=== PATIENT | male | born 1950 | race Caucasian/White ===

== ENCOUNTER 2021-06-11 09:30 | Outpatient (RCR) | payer MEDICARE, SELFPAY ==
[2021-03-17 12:31] VITALS: BP 142/62; PULSE 61; RESP 16; TEMP 36.4; O2SAT 99
[2021-03-17 12:33] VITALS: PULSE 61
== END 2021-06-11 15:23 | disposition home or self-care (01) ==
LOC: ANHCPREHAB 09:30
PROVIDERS: PCP Internal Medicine; Visit Provider Internal Medicine Cardiovascular Disease
DX: Z95.1 Presence of aortocoronary bypass graft (principal)
CPT/HCPCS: 93798

== ENCOUNTER 2022-07-07 08:35 | Outpatient (CLI) | payer MEDICARE, SELFPAY ==
--- NOTE | ~2022-07-07 | MR_ITS ---
EXAMINATION: MR lumbar spine wo con DATE: 07/07/2022 09:07 INDICATION: Spinal stenosis of lumbosacral region. TECHNIQUE: Magnetic resonance imaging (MRI) of the lumbar spine was performed without intravenous con trast. Sequences included sagittal T2-weighted FSE, sagittal T2-weighted FS FSE, sagittal T1-weighted FSE, and axial T2-weighted FSE. COMPARISON: Lumbar spine MRI 08/17/2018 FINDINGS: There is 3 degrees dextrocurvature of thoracolumbar spine. There is 4 mm retrolisthesis of L2 on L3 and 4 mm anterolisthesis of L4 on L5. Vertebral body heights are normal. There is mildly dec reased disc height at L2-L3, moderately decreased disc height at L4-L5, and severely decreased disc h eight at L5-S1 with endplate remodeling. The distal spinal cord signal intensity is normal. The conus medullaris is at T12-L1. The following disc levels are specifically discussed: L1-L2: There is a central protrusion. There is mild right and moderate left facet joint osteoarthriti s. There is mild left neural foraminal stenosis. There is mild central canal stenosis. L2-L3: The disc is bulging with superimposed left subarticular zone extrusion. There is mild right an d moderate left facet joint osteoarthritis. There is moderate bilateral neural foraminal stenosis. Th ere is moderate central canal stenosis. There is severe stenosis of left lateral recess. L3-L4: The disc is bulging. There is severe bilateral facet joint osteoarthritis. There is hypertroph y of the ligamentum flavum. There is moderate bilateral neural foraminal stenosis. There is severe ce ntral canal stenosis. L4-L5: The disc is bulging and has an annular fissure. There is severe bilateral facet joint osteoart hritis. There is moderate bilateral neural foraminal stenosis. There is mild central canal stenosis. L5-S1: The disc is bulging and has an annular fissure. There is severe bilateral facet joint osteoart hritis. There is moderate bilateral neural foraminal stenosis. There is mild central canal stenosis. IMPRESSION: 1. Severe lumbar spondylosis with interval worsening at L2-L3. Reviewed, dictated and finalized at location A.
== END 2022-07-07 08:36 | disposition home or self-care (01) ==
LOC: ANHIMG 08:36
PROVIDERS: PCP Internal Medicine; Visit Provider Internal Medicine
DX: M48.07 Spinal stenosis, lumbosacral region (principal); M47.896 Other spondylosis, lumbar region
CPT/HCPCS: 72148

== ENCOUNTER 2025-04-06 09:35 | Inpatient (IN) | payer MEDICARE, SELFPAY ==
[2025-04-06] VITALS (27 sets, daily range): BP systolic 116–142; BP diastolic 49–104; PULSE 70–99; RESP 20–32; TEMP 36.4–38.3; O2SAT 86–100; BMI 31.8
--- NOTE | ~2025-04-06 | XR_ITS ---
XR chest 2V 04/06/2025 10:20 Indication: Hemoptysis Procedure: 2 view chest Comparison: 03/04/2007 Findings: Large left upper lobe mass, consistent with bronchogenic carcinoma until proven otherwise. Cardiomegaly. Status post median sternotomy for CABG. Right lung clear. Impression: 1: Large left upper lobe mass, consistent with bronchogenic carcinoma until proven otherwise. Recomme nd correlation with CT chest. Reviewed, dictated and finalized at location B. Impression: 1: Large left upper lobe mass, consistent with bronchogenic carcinoma until pro sidney otherwise. Recommend correlation with CT chest.
--- NOTE | ~2025-04-06 | CT_ITS ---
EXAMINATION: CTA chest PE protocol DATE: 04/06/2025 11:13 INDICATION: Hemoptysis, cough and fever TECHNIQUE: Computed tomography (CT) pulmonary angiogram of the chest was performed with 100 mL Omnipa que-350 intravenous contrast. Additional 3D reconstructions utilizing coronal maximum intensity proje ction (MIP) were performed. Automated exposure control and iterative reconstruction technique were em ployed. The dose-length product was 464.63 mGy-cm. COMPARISON: Chest CT dated 07/23/2016 FINDINGS: No pulmonary embolism. Patchy consolidation and surrounding groundglass opacity in the dependent left upper lobe extending inferiorly into the lingula consistent with pneumonia. There is mild dependent atelectasis in bilateral lower lobes. Tiny left pleural effusion. Cardiomegaly. Atherosclerotic coron davian artery calcifications. Median sternotomy wires and changes of prior coronary artery bypass grafti ng. Three lead pacemaker seen with lead tips terminating at the right atrial appendage, apex of the r ight ventricle and in a coronary vein overlying the lateral left ventricle having traversed the coron davian sinus. No pericardial effusion. Thoracic aorta is normal in caliber with no dissection. Calcified right hilar, mediastinal and left axillary lymph nodes consistent with old granulomatous disease. Th ere are few prominent but still normal-sized prevascular lymph nodes consistent with likely reactive mediastinal lymphadenopathy. Mild left gynecomastia. Chronic 1 cm low-attenuation hepatic cyst versus hemangioma which can be seen on CT dated 07/02/18. 2.4 cm right renal cyst. Severe lower cervical spon dylosis. Mild to moderate thoracic spondylosis. IMPRESSION: 1. No pulmonary embolism. 2. Consolidation the left upper lobe and lingula consistent with pneumonia. 3. Cardiomegaly. 4. Mild likely reactive mediastinal lymphadenopathy. Reviewed, dictated and finalized at location A.
--- OUTSIDE RECORDS SUMMARY | 2025-04-06 09:39 | XMS_ITS | Encounter Summary ---
Author Organization [facility] Address [address] [place] [address] Care Team Providers Care Bee Raiser Name Role Phone Asim Mahmood DO Primary Care Provider [phone] Reason for Visit * Reason Onset Date Comments ECHO RESULT 08/15/2024 Encounter Details Date Type Department Care Team (Late st Contact Info) Description 08/15/2024 Telephone [facility] At [address] [place] [id number] Norman Stewart MD [address] [place] [address] [address] [place] [address] ECHO RESULT Social History Tobacco Use Types Packs/Day Years Used Date Smoking Tobacco: Never Smokeless Tobacco: Never Alcohol Use Standard Drinks/Week Comments Yes 18 (1 standard drink = 0.6 oz pu re alcohol) Sex and Gender Information Value Date Recorded Sex Assigned at Not on file Legal Sex Male 8:57 AM CDT Gender Identity Not on file Sexual Orientation Not on file documented as of this encounter Miscellaneous Notes * Telephone Encounter - Haley Sweeney - 08/15/2024 12:36 PM CDT Patient results scanned into chart documented in this encounter Plan of Treatment Upcoming Encounters Date Type Department Care Team (Late st Contact Info) Description 05/31/2025 2:15 PM CDT Procedure visit [facility] AT [address] [place] [address] 03/07/2026 11:00 AM CDT Office Visit [facility] [address] [place] [address] Norman Stewart MD [address] [place] [address] [address] [place] [address] documented as of this encounter Visit Diagnoses Not on filedocumented in this encounter Care Teams Bee Raiser Relationship Specialty Start Date End Date Asim Mahmood DO [address] [facility] [address] [place] [address] PCP - General Internal Medicine 02/29/24 documented as of this encounter
--- OUTSIDE RECORDS SUMMARY | 2025-04-06 09:39 | XMS_ITS ---
Author Organization [facility] [place] [address] Address [address] [place] [address] Care Team Providers Care Stereo Equipment Salesperson Name Role Phone Chon Goode Primary Care Provider Active Problems Problem Noted Date Diagnosed Date Cardiac resynchronization th erapy pacemaker (AVIATION NEUROPSYCHOLOGIST-P) in place 05/10/2024 HFrEF (heart failure with reduced ejection fract ion) 01/20/2024 Atrial fibrillation 12/08/2023 Cardiomyopathy 04/22/2023 Medication side effects 10/02/2021 Aftercare following surgery of the circulatory s ystem, NEC 02/25/2021 Abnormal cardiovascular stress test 01/03/2021 Overview (01/03/2021): Added automatically from request for surgery [id number] LBBB (left bundle branch block) 12/31/2020 Premature atrial contractions 12/22/2019 Statin myopathy 12/22/2019 Mixed diabetic hyperlipidemi a associated with type 2 diabetes mellitus (CMS/HCC) 12/22/2019 Cervical myelopathy 11/02/2018 Spinal stenosis of lumbar re gion without neurogenic claudication 11/02/2018 Idiopathic peripheral neuropathy 07/29/2018 Lumbar spondylosis 07/29/2018 Coronary artery disease invo lving [place] coronary artery of [place] heart without angina pectoris 02/16/2018 Hypertension associated with diabetes 02/16/2018 MORENITA on CPAP 02/16/2018 Hx of CABG 02/16/2018 History of tobacco abuse 02/16/2018 Scar 08/07/2013 Subcutaneous nodule 08/07/2013 Skin neoplasm 06/30/2013 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 12/30/19 13 Current Treatment and Therapy Plans No current plan information found. Past Treatment and Therapy Plans No past plan information found. Lifetime Dose Tracking * Chemical Lifetime Dose Automatic Entry Manual Entr y Air kerma at the reference point (Ka,r) 1,684.53 mGy 0 mGy 1,684.53 mGy Resolved Problems Problem Noted Date Diagnosed Date Resolved Date Coronary artery disease invo lving autologous vein coronary bypass graft with angina pectoris ([facility]) 01/14/2021 10/02/2021 Overview (01/14/2021): Added automatically from request for surgery [id number] Angina pectoris, unstable 01/03/2021 Overview (01/03/2021): Added automatically from request for surgery [id number] Dyslipidemia 02/16/2018 10/02/2021 Statin intolerance 02/16/2018 9 Abnormal blood chemistry level 05/28/2011 04/22/2023 Hypercholesterolemia 12/18/2008 021
--- OUTSIDE RECORDS SUMMARY | 2025-04-06 09:39 | XMS_ITS | Clinical Summary ---
Author Organization [facility] [place] [address] Address [address] [place] [address] Care Team Providers Care Freight Car Builder Name Role Phone Chon Goode Primary Care Provider Allergies Active Allergy Reactions Criticality Noted Date Comments Amlodipine Swelling Medium 02/16/2018 Atorvastatin Other (See comments) High 02/16/2018 Chest Pain Carvedilol Swelling,Other (See comments) Medium 02/16/2018 Back pain Hydrochlorothiazide Chest tightness Medium 02/16/2018 Thinks may have been due to concomitant statin therapy. Pravastatin Swelling,Other (See comments) Medium 02/16/2018 Back pain Rosuvastatin Other (See comments) High Bleeding Spironolactone Swelling,Other (See comments) Medium 02/16/2018 Back pain Qsklkxl-Jxo-Nnz Reductase Inhibitors Other (See comments) Low 02/16/2018 Myositis/severe myalgias Ezetimibe Cough Low 02/16/2018 Medications aspirin 81 mg tablet Take 1 tablet (81 mg total) by mouth daily Active multivitamin tabletIndicati ons:Vitamin Deficiency Prevention Take 1 tablet by mouth daily Active cholecalcifero l (VITAMIN D-3) 5,000 unit capsule Take 1 capsule (5,000 Units total) by mouth daily Active glucosamine/ch ondr alvarez A sod (GLUCOSAMINE-C HONDROITIN) 1,500-1,200 mg/30 mL liquid Take 1 tablet by mouth 2 (two) times a day. Active vit A,C and F-ghrytm-likvm als (OCCUVITE with LUTEIN) 1,000 unit-200 mg-60 unit-2 mg tabletIndicati ons:Vitamin Deficiency Prevention Take 1 tablet by mouth daily Active ginkgo biloba leaf extract 120 mg capsule Take 120 mg by mouth daily 0 Active magnesium oxide (MAG-OX) 250 mg (150.8 mg elemental) tabletIndicati ons:hypomagnes emia Take 1 tablet (250 mg total) by mouth daily Active TURMERIC ORAL Take 2,100 mg by mouth daily Active acetaminophen (TYLENOL) 500 mg tablet Take 650 mg by mouth daily as needed Active clopidogreL (PLAVIX) 75 mg tablet Take 1 tablet (75 mg total) by mouth daily 90 tablet 3 5 Active metoprolol tartrate (LOPRESSOR) 50 mg immediate release tablet Take 1 tablet (50 mg total) by mouth 2 (two) times a day 180 tablet 3 5 10/31/19 26 Active Praluent Pen 75 mg/mL pen injector ADMINISTER 1 ML UNDER THE SKIN EVERY 14 DAYS 2 mL 11 5 Active empagliflozin (JARDIANCE) 10 mg tablet Take 1 tablet (10 mg total) by mouth daily 90 tablet 2 5 Active sacubitriL-jozef sartan (ENTRESTO) 97-103 mg tabletIndicati ons:chronic heart failure Take 1 tablet by mouth 2 (two) times a day 180 tablet 2 5 Active empagliflozin (JARDIANCE) 10 mg tablet Take 1 tablet (10 mg total) by mouth daily 90 tablet 3 4 03/22/20 25 Discontinu ed(Reorder ) sacubitriL-jozef sartan (ENTRESTO) 97-103 mg tabletIndicati ons:chronic heart failure Take 1 tablet by mouth 2 (two) times a day 180 tablet 3 4 03/22/20 25 Discontinu ed(Reorder ) Active Problems Problem Noted Date Diagnosed Date Cardiac resynchronization th erapy pacemaker (INFANT CHILDCARE PROVIDER-P) in place 05/10/2024 HFrEF (heart failure with reduced ejection fract ion) 01/20/2024 Atrial fibrillation 12/08/2023 Cardiomyopathy 04/22/2023 Medication side effects 10/02/2021 Aftercare following surgery of the circulatory s JAKUB langley 02/25/2021 Abnormal cardiovascular stress test 01/03/2021 Overview (01/03/2021): Added automatically from request for surgery [id number] LBBB (left bundle branch block) 12/31/2020 Premature atrial contractions 12/22/2019 Statin myopathy 12/22/2019 Mixed diabetic hyperlipidemi a associated with type 2 diabetes mellitus ([facility]) 12/22/2019 Cervical myelopathy 11/02/2018 Spinal stenosis of lumbar re gion without neurogenic claudication 11/02/2018 Idiopathic peripheral neuropathy 07/29/2018 Lumbar spondylosis 07/29/2018 Coronary artery disease invo lving [place] coronary artery of [place] heart without angina pectoris 02/16/2018 Hypertension associated with diabetes 02/16/2018 MORENITA on CPAP 02/16/2018 Hx of CABG 02/16/2018 History of tobacco abuse 02/16/2018 Scar 08/07/2013 Subcutaneous nodule 08/07/2013 Skin neoplasm 06/30/2013 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 12/30/19 13 Resolved Problems Problem Noted Date Diagnosed Date Resolved Date Coronary artery disease invo lving autologous vein coronary bypass graft with angina pectoris ([facility]) 01/14/2021 10/02/2021 Overview (01/14/2021): Added automatically from request for surgery [id number] Angina pectoris, unstable 01/03/2021 Overview (01/03/2021): Added automatically from request for surgery [id number] Dyslipidemia 02/16/2018 10/02/2021 Statin intolerance 02/16/2018 9 Abnormal blood chemistry level 05/28/2011 04/22/2023 Hypercholesterolemia 12/18/2008 021 Encounters Date Type Department Care Team Description 03/22/2025 Telephone [facility] [address] [place] [address] Barrett Gu MD 02/12/2025 Telephone [facility] [address] [place] [address] Barrett Gu MD from Last 3 Months Surgical History Surgery Date Site/Laterality Comments NM CORONARY ARTERY BYPASS 1 CORONARY VENOUS GRAFT CABG - (Added by TW Conv) CARDIAC CATHETERIZATION CORONARY ANGIOPLASTY APPENDECTOMY 06/23/2018 CORONARY ARTERY BYPASS GRAFT 10/25/2006 - 10/24/2007 CORONARY ARTERY BYPASS GRAFT 01/20/2021 Redo CABGx2 Medical History Medical History Date Comments Personal history of other ma lignant neoplasm of skin Personal history of skin can cer - (Added by SHAYNA Conv) Hyperlipidemia Hypertension Sleep apnea home cpap Coronary artery disease Cancer (HCC) 2013 squamous cell on back of neck Arthritis Family History Medical History Relation Name Comments Hypertension Father Gallito Jimenez Hypertension Mother Stephanie Jimenez Heart attack Paternal Grandfather Javy Jimenez Hypertension Paternal Grandfather Javy Jimenez Relation Name Status Comments Father Gallito Jimenez (Age 57) Mother Stephanie Jimenez (Age 74) Paternal Grandfather Javy Jimenez Social History Tobacco Use Types Packs/Day Years Used Date Smoking Tobacco: Former Cigarettes 1.5 12 1 - 10/24/1978 Smokeless Tobacco: Never Tobacco Cessation:Counseling Given: Not Answered Alcohol Use Standard Drinks/Week Comments Yes 2 (1 standard drink = 0.6 oz pur e alcohol) AUDIT-C Answer Date Recorded Q1: How often do you have a drink containing alc ohol? Never 02/25/2021 Average Number of Drinks Not on file 021 Q3: How often do you have si x or more drinks on one occasion? Never 02/25/2021 Personal Safety Answer Date Recorded Have you ever been in or are you currently in a harmful physical or emotional relationship or is someone making you feel afraid or unsafe? Denies 05/12/2023 Sex and Gender Information Value Date Recorded Sex Assigned at Not on file Legal Sex Male 11:44 PM FLATTENING MACHINE OPERATOR Gender Identity Male 02/25/2021 9:12 AM CDT Sexual Orientation Not on file Obstetrics History Last Filed Vital Signs Vital Sign Reading Time Taken Comments Blood Pressure 136/80 10/31/2024 8:36 AM FLATTENING MACHINE OPERATOR Pulse 72 10/31/2024 8:36 AM FLATTENING MACHINE OPERATOR Temperature 36.1 C (97 F) 05/12/2023 2:20 PM CDT Respiratory Rate 16 01/27/2024 8:10 AM CDT Oxygen Saturation 99% 10/31/2024 8:36 AM FLATTENING MACHINE OPERATOR Inhaled Oxygen Concentration - - Weight 101.6 kg (224 lb) 10/31/2024 8:36 AM FLATTENING MACHINE OPERATOR Height 177.8 cm (5' 10) 10/31/2024 8:36 AM FLATTENING MACHINE OPERATOR Body Mass Index 32.14 10/31/2024 8:36 AM FLATTENING MACHINE OPERATOR Plan of Treatment Health Maintenance Due Date Last Done Comments Albumin Creatinine Ratio, Urine 1948 Depression Screening 1948 Hepatitis C Screening 1948 Dilated Eye Exam 1948 Foot Exam 1948 DTaP/Tdap/Td Vaccine (1 - Tdap) 1959 Hepatitis B Screening 1966 Pneumococcal vaccine 65+ (1 of 2 - PCV) 1967 Zoster Vaccine (1 of 2) 1998 Abdominal Aortic Aneurysm (A AA) Screen 2013 Well Visit 65+ 2013 Hemoglobin A1C 07/23/2021 01/20/2021 Fall Risk Assessment 01/24/2022 01/24/2021 eGFR 12/03/2024 12/03/2023, 08/0 11/2022, 05/12/2023, Additional history exists Influenza Vaccine (Season Ended) 2025 Lipid Panel 10/31/2025 10/31/2024, 10/0 05/2024, 03/09/2024, Additional history exists Medical Devices Implanted Type Area Director Apparel Device Identifier Shelf Expiration Date Model / Serial / Lot [employer] V[employer] Device Clsr Perclose Prostyle Sut-Mediatd Closure-Repai r Sys [id number] - S0 - [id number] Implanted:Qty : 1 on 05/12/2023 by Byron Horn MD at [facility] V[facility] Closure Device Right: Femoral [employer] 01/22/2025 [id number] / [id number] / [id number] Procedures Procedure Name Priority Date/Time Associated Diagnosis Comments POCT LIPID PANEL Routine 10/31/2024 8:38 AM FLATTENING MACHINE OPERATOR Coronary artery disease involving [place] coronary artery of [place] heart without angina pectoris BASIC METABOLIC PANEL Routine 12/03/2023 8:02 AM FLATTENING MACHINE OPERATOR Hypertension associated with diabetes (HCC) Cardiomyopathy, unspecified type (HCC) HEMOGLOBIN A1C STAT 01/20/2021 6:51 AM CDT from Last 3 Months or Most Recently Relevant to Health Maintenance Results * POCT lipid panel (10/31/2024 8:38 AM FLATTENING MACHINE OPERATOR) Cholesterol, POC 172 mg/dL HDL, POC 59 mg/dL Triglycerides, POC 123 mg/dL LDL Cholesterol POC 88 mg/dL Chol/HDL Ratio, POC 1.5 Non-HDL Cholesterol, POC 113 mg/dL Cholesterol Total, POC 172 mg/dL Capillary blood 10/31/2024 8 :38 AM FLATTENING MACHINE OPERATOR Barrett Gu MD POINT OF CARE TEST ORDERA BLES Final Result * (ABNORMAL) Basic metabolic panel (12/03/2023 8:02 AM FLATTENING MACHINE OPERATOR) Glucose 101(H) 65 - 99 mg/dL [facility] Comment: Fasting reference interval For someone without known diabetes, a glucose value between 100 and 125 mg/dL is consistent with prediabetes and should be confirmed with a follow-up test. BUN 16 7 - 25 mg/dL [facility] Creatinine 0.91 0.70 - 1.28 mg/dL [facility] eGFR 88 > OR = 60 mL/min/1.7 3m2 [facility] BUN/creat ratio SEE NOTE: 6 - 22 (calc) [facility] Comment: Not Reported: BUN and Creatinine are within reference range. Sodium 141 135 - 146 mmol/L [facility] Potassium, pl 4.5 3.5 - 5.3 mmol/L [facility] Chloride 106 98 - 110 mmol/L [facility] CO2 27 20 - 32 mmol/L [facility] Calcium 9.4 8.6 - 10.3 mg/dL [facility] Blood 12/03/2023 8:02 AM FLATTENING MACHINE OPERATOR 12/03/2023 8:02 AM FLATTENING MACHINE OPERATOR Narrative [facility] - 12/03/2023 6:33 PM FLATTENING MACHINE OPERATOR FASTING:YES FASTING: YES Brandon Vega MD LAB BLOOD ORDERABLES Fin al Result [facility] [address] [place] [address] * Hemoglobin A1c (01/20/2021 6:51 AM CDT) Hgb A1C 5.2 4.0 - 5.6 % [facility] Estimated Average Glucose 103 mg/dL [facility] Comment: The ADA recommends reporting an estimated Average Glucose (eAG) with all Hemoglobin A1c results using the equation derived from a study of 507 normal and diabetic adults. Minority populations were underrepresented and children were not included. (Diabetes Care 31:6911-7470, 2008). The eAG is not equivalent to a fasting glucose. Blood specimen (specimen) 01/20/2021 6:51 AM CDT 01/20/2021 6:51 AM CDT Jossue Marshall MD LAB BLOOD ORDERABLES Final Result Performing Organization Address [facility] Co de Phone Number [facility] [address] Department [place] [address] from Last 3 Months or Most Recently Relevant to Health Maintenance Insurance MEDICARE [facility] MEDICARE [facility] MEDICARE [facility] MEDICARE [facility] Advance Directives For more information, please contact: [phone] Documents on File Type Date Recorded Patient Contract Consultant Expl anation ADVANCE DIRECTIVE 05/13/2023 4:52 PM POWER OF CORPORATE EVENTS DIRECTOR-MEDICAL * Full Code (Latest Code Status on File) Date Activated Date Inactivated Comments 05/12/2023 3:58 PM 05/12/2023 10:20 PM * Full Code Date Activated Date Inactivated Comments 01/20/2021 1:00 PM 01/24/2021 5:02 PM * Full Code Date Activated Date Inactivated Comments 01/10/2021 12:47 PM 01/10/2021 8:57 PM Care Teams Freight Car Builder Relationship Specialty Start Date End Date Chon Goode PA [address] [facility] [address] [place] [address] PCP - General Physician Underlay Stitcher 10/31/24
--- OUTSIDE RECORDS SUMMARY | 2025-04-06 09:39 | XMS_ITS | Clinical Summary ---
Author Organization [facility] Address [address] [place] [address] Phone Care Team Providers Care Print Producer Name Role Phone Asim Mahmood Primary Care Provider Allergies Active Allergy Reactions Criticality Noted Date Comments Amlodipine Swelling Low 02/25/2024 Atorvastatin Other (See Comments) 02/25/2024 Chest pain, increased CK reading Carvedilol Other (See Comments) 02/25/2024 Low back pain, numbness and tingling ad swelling in both extremities Ezetimibe Other (See Comments) 02/25/2024 hacking Hydrochlorothiazide Other (See Comments) Medium 2017 Thinks may have been due to concomitant statin therapy. Metoprolol Diarrhea Low 02/25/2024 Metoprolol Succ ER Pravastatin Other (See Comments) 02/25/2024 Low back pain, numbness, tingling and swelling in both extremities Rosuvastatin Other (See Comments) 02/25/2024 Bleeding Spironolactone Other (See Comments) 02/25/2024 Low back pain, numbness, tingling and swelling in both extremities Medications clopidogreL (PLAVIX) 75 mg Tablet Take 75 mg by mouth daily. Active sacubitriL-vals luis angel (ENTRESTO) 97-103 mg Tablet Take 1 Tablet by mouth 2 times daily. Active metoprolol tartrate (LOPRESSOR) 50 mg tablet Take 50 mg by mouth 2 times daily. Active empagliflozin (Jardiance) 10 mg tablet Take by mouth daily in the morning. Active multivitamin with minerals (ONE-A-DAY 50 PLUS ORAL) Take by mouth. Acti ve cholecalciferol , Vitamin D3, 125 mcg (5,000 unit) Capsule Take 5,000 Units by mouth daily. Active vitamin A-vitamin C-vitamin E (OCUVITE) Tablet Take 1 Tablet by mouth daily. Active aspirin 81 mg Capsule Take 81 mg by mouth daily. Active ginkgo biloba leaf extract 120 mg Capsule Take 120 mg by mouth daily at bedtime. Active glucos sul 2KCl/msm/chond/ C/Mn (GLUCOSAMINE CHONDROITIN ORAL) Take by mouth 2 times daily. Active Magnesium Oxide 420 mg Tablet Take by mouth. A ctive acetaminophen (TYLENOL ARTHRITIS ORAL) Take 650 mg by mouth 1 time daily as needed for Pain. Active alirocumab (Praluent Pen) 75 mg/mL Pen Injector Inject by subcutaneous injection every 2 weeks. Active Active Problems No known active problems Encounters Date Type Department Care Team Description 03/20/2025 External Device Data STL ABSTRACTION Provider, Abstract 03/15/2025 External Device Data STL ABSTRACTION Provider, Abstract 03/14/2025 External Device Data ST[facility] ABSTRACTION Provider, Abstract 03/13/2025 External Device Data STL ABSTRACTION Provider, Abstract 02/15/2025 1:15 PM CDT Procedure visit [facility] AT [address] [place] [address] Pacemaker (Primary Dx); LBBB (left bundle branch block) 02/15/2025 11:30 AM CDT Office Visit [facility] AT [address] [place] [address] Norman Stewart MD Pacemaker (Primary Dx); Hx of CABG; LBBB (left bundle branch block); Statin intolerance; Ischemic cardiomyopathy; Longstanding persistent atrial fibrillation (CMS/HCC); Benign hypertension 02/06/2025 External Device Data STL ABSTRACTION Provider, Abstract 01/30/2025 External Device Data STL ABSTRACTION Provider, Abstract 01/10/2025 External Device Data STL ABSTRACTION Provider, Abstract from Last 3 Months Family History Medical History Relation Name Comments Colon Cancer Father Leukemia Mother Other Mother Heart Attack Paternal Grandmother Melanoma Sister Relation Name Status Comments Father Mother Paternal Grandmother Sister Social History Tobacco Use Types Packs/Day Years Used Date Smoking Tobacco: Never Smokeless Tobacco: Never Tobacco Cessation:Counseling Given: Not Answered Alcohol Use Standard Drinks/Week Comments Yes 18 (1 standard drink = 0.6 oz pu re alcohol) Sex and Gender Information Value Date Recorded Sex Assigned at Not on file Legal Sex Male 8:57 AM CDT Gender Identity Not on file Sexual Orientation Not on file Last Filed Vital Signs Vital Sign Reading Time Taken Comments Blood Pressure 130/84 02/15/2025 11:21 AM CDT Pulse 86 02/15/2025 11:21 AM CDT Temperature 36.2 C (97.1 F) 05/10/2024 5:43 PM CDT Respiratory Rate 20 05/10/2024 8:00 PM CDT Oxygen Saturation 99% 02/15/2025 11: 21 AM CDT Inhaled Oxygen Concentration - - Weight 98.7 kg (217 lb 11.2 oz) 025 11:21 AM CDT Height 175.3 cm (5' 9) 02/15/2025 11:2 1 AM CDT Body Mass Index 32.15 02/15/2025 11:21 AM CDT Plan of Treatment Upcoming Encounters Date Type Department Care Team (Late st Contact Info) Description 05/31/2025 2:15 PM CDT Procedure visit [facility] AT [address] [place] [address] 03/07/2026 11:00 AM CDT Office Visit [facility] AT [address] [place] [address] Norman Stewart MD [address] [place] [address] [address] [place] [address] Health Maintenance Due Date Last Done Comments DIABETES ANNUAL FOOT EXAM 1966 DIABETES ANNUAL RETINAL EXAM 1966 DIABETES MICROALBUMIN ANNUAL SCREEN 1966 LDL CHOLESTEROL ANNUAL 1966 DTAP/TDAP/TD VACCINES (1 - Tdap) 1967 PNEUMOCOCCAL VACCINE 50+ YEA RS (1 of 2 - PCV) 1967 ZOSTER VACCINE (1 of 2) 1998 DIABETES HBA1C Q 6 MONTHS 07/11/20222021, 01/20/2021, 11/08/2018 RSV VACCINE (60+ or ) (1 - 1-dose 75+ series) 2023 INFLUENZA VACCINE (#1) 2024 Medical Devices Implanted Type Area Box Attacher Device Identifier Shelf Expiration Date Model / Serial / Lot Lead Pacing Capsure Fix Novus 45cm [id number] - [id number] - [id number] Implanted:Qty: 1 on 05/10/2024 at [facility] Lead N/A: Heart [employer]- CRM - BULK BUY 12/29/2025 5076-45 / [id number] V / Lead Capsurefix Novus Mri 52cm Endocardial Pacing 5076-52 - [id number] Implanted:Qty: 1 on 05/10/2024 at [facility] Lead N/A: Heart [employer]- CRM - BULK BUY 01/09/2026 5076-52 / [id number] V / Lead Pace Attain Performa-S 88cm [id number] - [id number] Implanted:Qty: 1 on 05/10/2024 by Norman Stewart MD at [facility] Lead N/A: Heart [employer]- CRM - BULK BUY 12/29/2025 [id number] / [id number] V / Pacemaker Crys Lead Operator-P Quad Mri Surescan [id number] - [id number] Implanted:Qty: 1 on 05/10/2024 at [facility] Pacemaker Left: Chest [employer]- CRM - BULK BUY 09/21/2025 [id number] / [id number] / Procedures Procedure Name Priority Date/Time Associated Diagnosis Comments NM REM INTERROG PM/LDLS PM/IDS <90 D TECH REVIEW Routine 02/15/2025 3:31 PM CDT Pacemaker LBBB (left bundle branch block) NM REM INTERROG PM/LDLS PM <90 D PHYS/QHP Routine 02/15/2025 3:31 PM CDT Pacemaker LBBB (left bundle branch block) from Last 3 Months Results * NM REM INTERROG PM/LDLS PM <90 D PHYS/QHP, NM REM INTERROG PM/LDLS PM/IDS <90 D TECH REVIEW (02/15/2025 3:31 PM CDT) 02/15/2025 3:31 PM CDT Narrative INTERFACE SYSTEM - 02/16/2025 3:34 PM CDT Seven Dorantes RN 02/16/2025 3:35 PM Remote Carelink Transmission Appropriate SCIENTIFIC SOFTWARE DEVELOPER-P function. Presenting Rhythm: AF BVp Battery: 7.2 yrs. IT PROJECT COORDINATOR 98.6% Since remote 11/16/2024: AF burden 100%. Ventricular rates during AF > 100 bpm ~ 5%. 641 V Sensing episodes noted, 1.4 min/day. EF 30% as of 08/10/2024. Per Epic, Patient takes Plavix, metoprolol, aspirin. Patient notified of results. Norman Stewart MD CARDIAC SERVICES ORDERABLES Edit ed Result - Final Performing Organization Address City/State/[facility] Co de Phone Number INTERFACE SYSTEM Refer to clinic/hospital department from Last 3 Months Insurance MEDICARE PART A AND B [facility] [id number] [place] [address] [employer] Medicare Part D Advance Directives For more information, please contact: [phone] * Full Code (Latest Code Status on File) Date Activated Date Inactivated Comments 05/10/2024 6:27 PM 05/10/2024 10:25 PM * Full Code Date Activated Date Inactivated Comments 05/10/2024 1:10 PM 05/10/2024 6:27 PM Care Teams Print Producer Relationship Specialty Start Date End Date Asim Mahmood DO [address] [facility] [address] [place] [address] PCP - General Internal Medicine 02/29/24
--- OUTSIDE RECORDS SUMMARY | 2025-04-06 09:39 | XMS_ITS | Referral Summary ---
Author Organization [facility] [address] [facility] [address] Address [address] [place] [address] Care Team Providers Care Bridge Crane Operator Name Role Phone Chon Goode Primary Care Provider Encounters Date Type Department Care Team Description 03/22/2025 Telephone [facility] Medical [facility] Cardiology [address] [place] [address] Barrett Gu MD 02/12/2025 Telephone [facility] Cardiology [address] [place] [address] Barrett Gu MD from Last 3 Months Allergies Active Allergy Reactions Criticality Noted Date [...] Swelling,Other (See comments) Medium 02/16/2018 Back pain Prbqjgx-Kes-Gnk Reductase Inhibitors Other (See comments) Low 02/16/2018 [...] times a day. Active vit A,C and M-fqqxsd-dhaiy als (OCCUVITE with LUTEIN) 1,000 unit-200 mg-60 [...] Diagnosed Date Cardiac resynchronization th erapy pacemaker (APPRAISAL SPECIALIST-P) in place 05/10/2024 HFrEF (heart failure with reduced ejection fract ion) 01/20/2024 Atrial fibrillation 12/08/2023 Cardiomyopathy 04/22/2023 Medication side effects 10/02/2021 Aftercare following surgery of the circulatory s korin NEC 02/25/2021 Abnormal cardiovascular stress test 01/03/2021 Overview (01/03/2021): Added automatically from request for surgery [id number] LBBB (left bundle branch block) 12/31/2020 Premature atrial contractions 12/22/2019 Statin myopathy 12/22/2019 Mixed diabetic hyperlipidemi a associated with type 2 diabetes mellitus ([facility]) 12/22/2019 Cervical myelopathy 11/02/2018 Spinal stenosis of lumbar re gion without neurogenic claudication 11/02/2018 Idiopathic peripheral neuropathy 07/29/2018 Lumbar spondylosis 07/29/2018 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 heart without angina pectoris 02/16/2018 Hypertension associated with diabetes 02/16/2018 MORENITA on CPAP 02/16/2018 Hx of CABG 02/16/2018 History of tobacco abuse 02/16/2018 Scar 08/07/2013 Subcutaneous nodule 08/07/2013 Skin neoplasm 06/30/2013 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 12/30/19 13 Resolved Problems Problem Noted Date Diagnosed Date Resolved Date Coronary artery disease invo lving autologous vein coronary bypass graft with angina pectoris ([facility]) 01/14/2021 10/02/2021 Overview (01/14/2021): Added automatically from request for surgery [id number] Angina pectoris, unstable 01/03/2021 Overview (01/03/2021): Added automatically from request for surgery [id number] Dyslipidemia 02/16/2018 10/02/2021 Statin intolerance 02/16/2018 9 Abnormal blood chemistry level 05/28/2011 04/22/2023 Hypercholesterolemia 12/18/2008 021 Social History Tobacco Use Types Packs/Day Years [...] on file Legal Sex Male 11:44 PM DESK EDITOR Gender Identity Male 02/25/2021 9:12 AM CDT Sexual Orientation Not on file Last Filed Vital Signs Vital Sign Reading Time Taken Comments Blood Pressure 136/80 10/31/2024 8:36 AM DESK EDITOR Pulse 72 10/31/2024 8:36 AM DESK EDITOR Temperature 36.1 C (97 F) 05/12/2023 2:20 PM CDT Respiratory Rate 16 01/27/2024 8:10 AM CDT Oxygen Saturation 99% 10/31/2024 8:36 AM DESK EDITOR Inhaled Oxygen Concentration - - Weight 101.6 kg (224 lb) 10/31/2024 8:36 AM DESK EDITOR Height 177.8 cm (5' 10) 10/31/2024 8:36 AM DESK EDITOR Body Mass Index 32.14 10/31/2024 8:36 AM DESK EDITOR Plan of Treatment Not on file Medical Devices Implanted Type Area Pressurised Container Filler Device Identifier Shelf Expiration Date Model / Serial / Lot Lisa Vascular Device Clsr Perclose Prostyle Sut-Mediatd Closure-Repai r Sys [id number] - S0 - [id number] Implanted:Qty : 1 on 05/12/2023 by Byron Horn MD at [facility] Vascular Closure Device Right: Femoral Lisa Vascular 01/22/2025 [id number] / 0 / [id number] Procedures Procedure Name Priority Date/Time Associated Diagnosis Comments POCT LIPID PANEL Routine 10/31/2024 8:38 AM DESK EDITOR Coronary artery disease involving manzanita coronary artery of manzanita heart without angina pectoris BASIC METABOLIC PANEL Routine 12/03/2023 8:02 AM DESK EDITOR Hypertension associated with diabetes (HCC) Cardiomyopathy, unspecified type (HCC) HEMOGLOBIN A1C STAT 01/20/2021 6:51 AM CDT from Last 3 Months or Most Recently Relevant to Health Maintenance Results * POCT lipid panel (10/31/2024 8:38 AM DESK EDITOR) Cholesterol, POC 172 mg/dL HDL, POC 59 mg/dL Triglycerides, POC 123 mg/dL LDL Cholesterol POC 88 mg/dL Chol/HDL Ratio, POC 1.5 Non-HDL Cholesterol, POC 113 mg/dL Cholesterol Total, POC 172 mg/dL Capillary blood 10/31/2024 8 :38 AM DESK EDITOR Barrett Gu MD POINT OF CARE TEST ORDERA BLES Final Result * (ABNORMAL) Basic metabolic panel (12/03/2023 8:02 AM DESK EDITOR) Glucose 101(H) 65 - 99 mg/dL [facility] Comment: Fasting reference interval For someone without known diabetes, a glucose value between 100 and 125 mg/dL is consistent with prediabetes and should be confirmed with a follow-up test. BUN 16 7 - 25 mg/dL [facility] Creatinine 0.91 0.70 - 1.28 mg/dL [facility] eGFR 88 > OR = 60 mL/min/1.7 3m2 [facility] BUN/creat ratio SEE NOTE: 6 - 22 (calc) [facility] Comment: Not Reported: BUN and Creatinine are within reference range. Sodium 141 135 - 146 mmol/L [facility] Potassium, pl 4.5 3.5 - 5.3 mmol/L [facility] Chloride 106 98 - 110 mmol/L [facility] CO2 27 20 - 32 mmol/L [facility] Calcium 9.4 8.6 - 10.3 mg/dL [facility] Blood 12/03/2023 8:02 AM DESK EDITOR 12/03/2023 8:02 AM DESK EDITOR Narrative [facility] - 12/03/2023 6:33 PM DESK EDITOR FASTING:YES FASTING: YES Brandon Vega MD LAB BLOOD ORDERABLES Fin al Result Performing Organization Address City/[facility]/ZIP Co de Phone Number [facility] [address] [place] [address] * Hemoglobin A1c (01/20/2021 6:51 AM CDT) Hgb A1C 5.2 4.0 - 5.6 % [facility] Estimated Average Glucose 103 mg/dL [facility] Comment: The ADA recommends reporting an estimated Average Glucose (eAG) with all Hemoglobin A1c results using the equation derived from a study of 507 normal and diabetic adults. Minority populations were underrepresented and children were not included. (Diabetes Care 31:4629-8255, 2008). The eAG is not equivalent to a fasting glucose. Blood specimen (specimen) 01/20/2021 6:51 AM CDT 01/20/2021 6:51 AM CDT Jossue Marshall MD LAB BLOOD ORDERABLES Final Result Performing Organization Address [facility] Co de Phone Number [facility] [address] Department of Laboratories [place], [place] [id number] from Last 3 Months or Most Recently Relevant to Health Maintenance Insurance MEDICARE [facility] MEDICARE [facility]ICARE [facility] [place] [address] MEDICARE [facility] Address: [address] [address] [place] [address] [employer] [facility] Advance Directives For more information, please contact: [phone] Documents on File Type Date Recorded Patient Material Inspector Expl anation ADVANCE DIRECTIVE 05/13/2023 4:52 PM POWER OF MACHINE SHOP INSTRUCTOR-MEDICAL * Full Code (Latest Code Status on File) Date Activated Date Inactivated Comments 05/12/2023 3:58 PM 05/12/2023 10:20 PM * Full Code Date Activated Date Inactivated Comments 01/20/2021 1:00 PM 01/24/2021 5:02 PM * Full Code Date Activated Date Inactivated Comments 01/10/2021 12:47 PM 01/10/2021 8:57 PM Care Teams Bridge Crane Operator Relationship Specialty Start Date End Date Chon Goode PA [address] [facility] [address] [place] [address] PCP - General Physician Womens Volleyball Coach 10/31/24
--- NOTE | 2025-04-06 09:42 | ECG_ITS ---
Test Date: 2025-04-06 09:46:42 Measurements Intervals [place] Rate: 71 P: 0 [place]: 0 QRS: -53 QRSD: 201 T: 68 QT: 520 QTc: 567 Interpretive Statements ELECTRONIC VENTRICULAR PACEMAKER BASELINE ARTIFACT- I, II, AVR, AVL, V1 NO FURTHER INTERPRETATION IS POSSIBLE ATYPICAL ECG No previous ECG available for comparison Electronically Signed On 04-06-2025 10:42:43 CDT by Elder Lee D.O.
[2025-04-06 09:59] LABS: Basophils Percent Auto 0.2 % (0.2-1.2); Hematocrit 41.3 % (42.0-52.0); Hemoglobin 13.8 g/dL (14.0-18.0); Immature Granulocyte Absolute 0.08 K/mm3 (0.00-0.031); Immature Granulocyte Percent A 0.6 % (0-0.5); Lymphocytes Absolute Auto 0.61 K/mm3 (0.9-3.2); Lymphocytes Percent Auto 4.7 % (18.3-44.2); Mean Corpuscular HGB Conc 33.4 g/dl (32-36); Mean Corpuscular Hemoglobin 32.1 pg (26-34); Mean Platelet Volume 9.5 fl (7.4-10.4); Monocytes Percent Auto 7.4 % (2.6-8.5); Neutrophils Absolute Auto 11.3 K/mm3 (1.3-6.7); Neutrophils Percent Auto 87.1 % (45.5-73.1); Platelet Count Result 138 k/mm3 (150-375); Red Cell Distribution Width 13.7 % (11.5-14.5); White Blood Count 12.9 K/mm3 (4.5-10.0)
[2025-04-06 10:08] LABS: Alanine Aminotransferase 25 U/L (6-50); Albumin Level 3.8 g/dL (3.5-5.1); Alkaline Phosphatase 130 U/L (38-126); Anion Gap 11 mmol/L (4-12); Aspartate Amino Transferase 36 U/L (17-59); Bilirubin,Total 1.2 mg/dL (0.2-1.3); Blood Urea Nitrogen 26 mg/dL (9-20); Calcium 9.1 mg/dL (8.4-10.2); Carbon Dioxide 19 mmol/L (22-30); Chloride 104 mmol/L (98-107); Estimated CRCL calculation 51 ml/min; Estimated Glomerular Filt Rate 56; Glucose 119 mg/dL (65-110); Potassium 3.7 mmol/L (3.4-5.0); Sodium 134 mmol/L (137-145); Total Protein 7.4 g/dL (6.3-8.2)
--- NOTE | 2025-04-06 10:08 | ED_ITS ---
HPI - Weakness General Chief complaint: Weakness <Gilma Jennings PA-C - Last Filed: 04/06/25 15:05> Stated complaint: dizziness <Gilma Jennings PA-C - Last Filed: 04/06/25 15:05> Time Seen by Provider: 04/06/25 09:45 <Gilma Jennings PA-C - Last Filed: 04/06/25 15:05> Source: patient <PEG Kramer Last Filed: 04/06/25 15:05> Mode of arrival: ambulatory <PEG Kramer Last Filed: 04/06/25 15:05> Limitations: no limitations <PEG Kramer Last Filed: 04/06/25 15:05> History of Present Illness HPI Narrative: Patient is a 74 y/o male, with PMH of CAD s/p CABG, pacemaker, HTN, MORENITA, who presents the ED with report of weakness, cough for the past 3 days. Patient reports he began feeling ill on Wednesday. Reports fatigue, decreased energy, diffuse generalized weakness, chills, loss of appetite, shakiness, balance issues. States he has fallen from the weakness but denied any injury. Denies HI, LOC. Denies dizziness, lightheadedness. States his urine has been very dark. States today he began coughing up brown sputum and then pieces of bright red blood. He then prompted here for further evaluation. Patient denies feeling significantly short of breath. Denies chest pain. Denies known fevers. <Gilma Jennings PA-C - Last Filed: 04/06/25 15:05> Related Data Home medications: Home Medications ?Medication ?Instructions ?Recorded ?Confirmed ?Last Taken ?Type aspirin 81 mg tablet,delayed 81 mg PO DAILY 12/11/19 04/06/25 04/06/25 History release (Adult Low Dose Aspirin) cholecalciferol (vitamin D3) 125 5,000 unit PO DAILY 12/11/19 04/06/25 04/06/25 History mcg (5,000 unit) tablet multivitamin (Multiple Vitamins 1 tablet PO DAILY 12/11/19 12/20/24 Unknown History tablet) vit C,E,zinc,copper-woira5f 250 1 cap PO DAILY 12/12/19 12/20/24 Unknown History mg-lutein 5 mg-zeaxanthin 1 mg capsule (Ocuvite Adult 50 Plus) ginkgo biloba 120 mg tablet 120 mg PO DAILY 03/17/21 04/06/25 04/06/25 History empagliflozin 10 mg tablet 10 mg PO .HS 11/29/23 04/06/25 04/05/25 History (Jardiance) qkrfrroibux-qnwjzogtt-qur C-Mn 500 2 cap PO 11/29/23 12/20/24 Unknown History mg-400 mg capsule sacubitril 97 mg-valsartan 103 mg 1 tablet PO BID 11/29/23 12/20/24 Unknown History tablet (Entresto) turmeric root extract 500 mg 600 mg PO DAILY 11/29/23 12/20/24 Unknown History capsule magnesium oxide 400 mg PO DAILY 12/20/24 12/20/24 Unknown History <Gilma Jennings PA-C - Last Filed: 04/06/25 15:05> Allergies/Adverse reactions: Allergies Allergy/AdvReac Type Severity Reaction Status Date / Time atorvastatin Allergy Severe chest Verified 04/06/25 09:44 pressure rosuvastatin Allergy Severe GI bleed, Verified 04/06/25 09:44 rash amlodipine Allergy Intermediate feet amd Verified 04/06/25 09:44 hands swell carvedilol Allergy Intermediate LBP, Verified 04/06/25 09:44 numbness and tinglin in legs and feet hydrochlorothiazide Allergy Intermediate chest Verified 04/06/25 09:44 pressure metoprolol Allergy Intermediate swelling Verified 04/06/25 09:44 hands and feet spironolactone Allergy Intermediate LBP, Verified 04/06/25 09:44 numbness/tingling in legs and feet ezetimibe Allergy Mild Cough Verified 04/06/25 09:44 lisinopril Allergy Mild cough Verified 04/06/25 09:44 <PEG Kramer Last Filed: 04/06/25 15:05> Review of Systems 2 Review of Systems: All systems reviewed & are unremarkable except as noted in HPI. <PEG Kramer Last Filed: 04/06/25 15:05> All systems reviewed & are unremarkable except as noted in HPI and below < Gilma Jennings PA-C - Last Filed: 04/06/25 15:05> [facility] Past Medical History Medical History: Medical History Hx of cardiac pacemaker Other fatigue Sialadenitis Other nonspecific abnormal finding of lung field Numbness in feet High thyroid stimulating hormone (TSH) level Encounter for screening for malignant neoplasm of prostate Elevated CPK Dietary counseling and surveillance (11/12/15) Acute appendicitis with localized peritonitis <Gilma Jennings PA-C - Last Filed: 04/06/25 15:05> Surgical History Surgical History: Surgical History H/O heart bypass surgery <Gilma Jennings PA-C - Last Filed: 04/06/25 15:05> Family History Family History: Family History Sibling Hypertension Patient's sister is in good health Patient's brother is in good health Patient's sister is Mother Patient's mother is Hypertension Family history of malignant neoplasm Father Patient's father is Carcinoma of colon Family history of malignant melanoma Family history of primary malignant neoplasm of liver <Gilma Jennings PA-C - Last Filed: 04/06/25 15:05> Social History Social History: Social History Smoking packs per day: 1 Smoking cigarettes per day: 20.0 Years smoked: 10 Smoking pack-years: 10.00 Smoking status: Former smoker Tobacco type: cigarettes Second hand tobacco smoke exposure: No Smoking end date: 10/25/77 Alcohol intake: current Drinks per week: 16 Substance use: never Substance use type: does not use Do You Feel Safe in your Home?: Yes Lack of Transportation: No Lack of Food: Never True Current Housing: I Have Housing Concerned About Future Housing: No Difficulty Paying Gas/Electric Bills: No Difficulty Paying for Meds: No Currently Unemployed: No Education: Don't Know Difficulty w/ Childcare or Family Care: No Living arrangements: with family Occupation/Education: retired 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 HEAD: Normocephalic, atraumatic. ENT: TMs clear bilaterally RESPIRATORY: Airway patent, respirations nonlabored. Diffuse rhonchi throughout left upper lung zone, left mid lung zone. No distress. CARDIOVASCULAR: Regular rate and rhythm without murmurs, rubs, or gallops. MUSCULOSKELETAL: Moves all extremities. No gross deformities. No peripheral edema. SKIN: Warm, dry, normal color. NEURO: A&O X3. Speech clear. Cranial nerves II-XII grossly intact. Steady gait. No ataxic movements. Strength 5 of 5 in upper and lower extremities bilaterally. No pronator drift. 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 PSYCHIATRIC: Appropriate mood and affect. Normal interaction. <Gilma Jennings PA-C - Last Filed: 04/06/25 15:05> Course HUMAN RESOURCES PARTNER/PA Physician Supervision For this patient encounter, I reviewed the HUMAN RESOURCES PARTNER or PA documentation, treatment plan, and medical decision making; and I had [id number] time with this patient. <Angelo Monroy MD - Last Filed: 04/06/25 15:26> Vital Signs Vital signs: Vital Signs Temperature 97.5 F L 04/06/25 09:38 Pulse Rate 83 04/06/25 09:38 Respiratory Rate 20 04/06/25 09:38 Blood Pressure 142/104 H 04/06/25 09:38 Pulse Oximetry 96 04/06/25 09:38 Oxygen Delivery Room Air 04/06/25 09:38 Temperature 98.7 F 04/06/25 14:50 Pulse Rate 76 04/06/25 14:50 Respiratory Rate 32 H 04/06/25 14:50 Blood Pressure 116/59 L 04/06/25 14:50 Pulse Oximetry 94 04/06/25 14:50 Oxygen Delivery Nasal Cannula 04/06/25 13:52 Oxygen Flow Rate 3 04/06/25 13:52 <Gilma Jennings PA-C - Last Filed: 04/06/25 15:05> Vital Signs Temperature 97.5 F L 04/06/25 09:38 Pulse Rate 83 04/06/25 09:38 Respiratory Rate 20 04/06/25 09:38 Blood Pressure 142/104 H 04/06/25 09:38 Pulse Oximetry 96 04/06/25 09:38 Oxygen Delivery Room Air 04/06/25 09:38 Temperature 98.7 F 04/06/25 14:50 Pulse Rate 76 04/06/25 14:50 Respiratory Rate 32 H 04/06/25 14:50 Blood Pressure 116/59 L 04/06/25 14:50 Pulse Oximetry 94 04/06/25 14:50 Oxygen Delivery Nasal Cannula 04/06/25 13:52 Oxygen Flow Rate 3 04/06/25 13:52 <Angelo Monroy MD - Last Filed: 04/06/25 15:26> MDM - Weakness MDM Narrative Medical decision making narrative: Patient presented to ED with weakness, chills, productive cough, hemoptysis. Vital signs are stable upon arrival. Patient is afebrile here. Oxygen stable on room air. Patient in no acute respiratory distress. Cbc with blood cell count of 12.9. Neutrophil predominance. No bandemia. H&H is stable. Patient is on Plavix. No other blood thinners. CMP with bicarb of 19, slight COLBY. Creatinine typically around 0.8. Today 1.26. Fluids initiated. Patient does admit to decreased p.o. intake over the past few days. Otherwise stable electrolytes. Viral swabs are negative. UA w/ elevated specific gravity. Does show moderate amount of blood. No signs of infection. Patient given fluids. CK level added on. Patient denies gross hematuria. No abd/back pain. EKG with paced rhythm, no concerning ST changes. Baseline troponin did result elevated at 0.039. Patient is denying chest pain at this time. Will continue to trend. Chest x-ray with findings concerning for left upper lung mass, recommended CT chest. CTA of chest was obtained and showing left-sided pneumonia, no evidence of mass. No PE. Blood cultures obtained. Lactic acid 1.9. Patient started on Rocephin and azithromycin. Will be admitted for further evaluation, continued IV antibiotics for pneumonia, trending of troponins. Discussed case with Dr. Gunter, hospitalist, accepted patient for admission. IMU. Patient and family in agreement with plan and need for admission. Prior to patient receiving bed upstairs, he was noted to be hypoxic down to 89% on room air with good waveform. He was placed on 2 L nasal cannula with improvement of oxygen saturations. <Gilma Jennings PA-C - Last Filed: 04/06/25 15:05> Medical Records Attestation: I reviewed the patient's medical records. <PEG Kramer Last Filed: 04/06/25 15:05> Lab Data Attestation: I reviewed the patient's lab results. <Gilma Jennings PA-C - Last Filed: 04/06/25 15:05> Result diagrams: 04/06/25 09:52 04/06/25 09:52 <PEG Kramer Last Filed: 04/06/25 15:05> Labs: Lab Results 04/06/25 04/06/25 04/06/25 Range/Units 09:52 09:52 11:46 WBC 12.9 H (4.5-10.0) K/mm3 RBC 4.30 L (4.6-6.20) M/mm3 Hgb 13.8 L (14.0-18.0) g/dL Hct 41.3 L (42.0-52.0) % MCV 96.0 (80-100) fl MCH 32.1 (26-34) pg MCHC 33.4 (32-36) g/dl RDW 13.7 (11.5-14.5) % Plt Count 138 L (150-375) k/mm3 MPV 9.5 (7.4-10.4) fl Immature Gran % (Auto) 0.6 H (0-0.5) % Neut % (Auto) 87.1 H (45.5-73.1) % Lymph % (Auto) 4.7 L (18.3-44.2) % [place] % (Auto) 7.4 (2.6-8.5) % Eos % (Auto) 0.0 (0-4.4) % Baso % (Auto) 0.2 (0.2-1.2) % Lymph # (Auto) 0.61 L (0.9-3.2) K/mm3 [place] # (Auto) 1.0 H (0.1-0.6) K/mm3 Eos # (Auto) 0.0 (0-0.3) K/mm3 Baso # (Auto) 0.0 (0.0-0.1) K/mm3 Abs Immat Gran (auto) 0.08 H (0.00-0.031) K/mm3 Absolute Neuts (auto) 11.3 H (1.3-6.7) K/mm3 Absolute Nucleated RBC 0.000 (0.0-0.012) K/mm3 Nucleated RBC % 0.0 (0.0-0.2) % PT 16.8 H (11.1-14.7) Seconds INR 1.4 APTT 32.9 (22.3-36.8) Seconds Sodium 134 L (137-145) mmol/L Potassium 3.7 (3.4-5.0) mmol/L Chloride 104 (98-107) mmol/L Carbon Dioxide 19 L (22-30) mmol/L Anion Gap 11 (4-12) mmol/L BUN 26 H (9-20) mg/dL Creatinine 1.26 (0.7-1.3) mg/dL Estim Creat Clear Calc 51 ml/min Estimated GFR 56 L (59 - ) Glucose 119 H (65-110) mg/dL Lactic Acid 1.9 (0.7-2.0) mmol/L Calcium 9.1 (8.4-10.2) mg/dL Total Bilirubin 1.2 (0.2-1.3) mg/dL AST 36 (17-59) U/L ALT 25 (6-50) U/L Alkaline Phosphatase 130 H (38-126) U/L Total Creatine Kinase (55-170) U/L Troponin I 0.039 H* Cancelled (0.000-0.034) ng/mL Total Protein 7.4 (6.3-8.2) g/dL Albumin 3.8 (3.5-5.1) g/dL Urine Color (Yellow) Urine Appearance (Clear) Urine pH (5.0-9.0) Ur Specific [place] (1.001-1.035) Urine Protein (Negative) mg/dL Urine Glucose (UA) (Negative) mg/dL Urine Ketones (Negative) mg/dL Ur Blood (Man) (Negative) Urine Nitrate (Negative) Urine Bilirubin (Negative) Urine Urobilinogen (<2.0) mg/dL Add Ur Microanalysis Leukocyte Esterase Rfl (Negative) JOSE/UL Urine RBC (0-2) /hpf Urine WBC (0-3) /hpf Ur Squamous Epith Cells (Few) /hpf Urine Bacteria /hpf Urine Casts Influenza A (RT-PCR) Negative (Negative) Influenza B (RT-PCR) Negative (Negative) RSV (RT-PCR) Negative (Negative) SARS-CoV-2 RNA (RT-PCR) Negative (Negative) 04/06/25 04/06/25 Range/Units 13:10 13:22 WBC (4.5-10.0) K/mm3 RBC (4.6-6.20) M/mm3 Hgb (14.0-18.0) g/dL Hct (42.0-52.0) % MCV (80-100) fl MCH (26-34) pg MCHC (32-36) g/dl RDW (11.5-14.5) % Plt Count (150-375) k/mm3 MPV (7.4-10.4) fl Immature Gran % (Auto) (0-0.5) % Neut % (Auto) (45.5-73.1) % Lymph % (Auto) (18.3-44.2) % [place] % (Auto) (2.6-8.5) % Eos % (Auto) (0-4.4) % Baso % (Auto) (0.2-1.2) % Lymph # (Auto) (0.9-3.2) K/mm3 [place] # (Auto) (0.1-0.6) K/mm3 Eos # (Auto) (0-0.3) K/mm3 Baso # (Auto) (0.0-0.1) K/mm3 Abs Immat Gran (auto) (0.00-0.031) K/mm3 Absolute Neuts (auto) (1.3-6.7) K/mm3 Absolute Nucleated RBC (0.0-0.012) K/mm3 Nucleated RBC % (0.0-0.2) % PT (11.1-14.7) Seconds INR APTT (22.3-36.8) Seconds Sodium (137-145) mmol/L Potassium (3.4-5.0) mmol/L Chloride (98-107) mmol/L Carbon Dioxide (22-30) mmol/L Anion Gap (4-12) mmol/L BUN (9-20) mg/dL Creatinine (0.7-1.3) mg/dL Estim Creat Clear Calc ml/min Estimated GFR (59 - ) Glucose (65-110) mg/dL Lactic Acid (0.7-2.0) mmol/L Calcium (8.4-10.2) mg/dL Total Bilirubin (0.2-1.3) mg/dL AST (17-59) U/L ALT (6-50) U/L Alkaline Phosphatase (38-126) U/L Total Creatine Kinase 203 H (55-170) U/L Troponin I 0.029 D (0.000-0.034) ng/mL Total Protein (6.3-8.2) g/dL Albumin (3.5-5.1) g/dL Urine Color Dark yellow (Yellow) Urine Appearance Cloudy H (Clear) Urine pH 5.5 (5.0-9.0) Ur Specific [place] > 1.045 H (1.001-1.035) Urine Protein 2+ H (Negative) mg/dL Urine Glucose (UA) 3+ H (Negative) mg/dL Urine Ketones Negative (Negative) mg/dL Ur Blood (Man) 3+ H (Negative) Urine Nitrate Negative (Negative) Urine Bilirubin Negative (Negative) Urine Urobilinogen 1.0 (<2.0) mg/dL Add Ur Microanalysis Reviewed Leukocyte Esterase Rfl Negative (Negative) JOSE/UL Urine RBC >100 H (0-2) /hpf Urine WBC 0-5 (0-3) /hpf Ur Squamous Epith Cells Occasional (Few) /hpf Urine Bacteria None seen /hpf Urine Casts 0-2 Influenza A (RT-PCR) (Negative) Influenza B (RT-PCR) (Negative) RSV (RT-PCR) (Negative) SARS-CoV-2 RNA (RT-PCR) (Negative) <Gilma Jennings PA-C - Last Filed: 04/06/25 15:05> Lab Results 04/06/25 04/06/25 04/06/25 Range/Units 09:52 09:52 11:46 WBC 12.9 H (4.5-10.0) K/mm3 RBC 4.30 L (4.6-6.20) M/mm3 Hgb 13.8 L (14.0-18.0) g/dL Hct 41.3 L (42.0-52.0) % MCV 96.0 (80-100) fl MCH 32.1 (26-34) pg MCHC 33.4 (32-36) g/dl RDW 13.7 (11.5-14.5) % Plt Count 138 L (150-375) k/mm3 MPV 9.5 (7.4-10.4) fl Immature Gran % (Auto) 0.6 H (0-0.5) % Neut % (Auto) 87.1 H (45.5-73.1) % Lymph % (Auto) 4.7 L (18.3-44.2) % [place] % (Auto) 7.4 (2.6-8.5) % Eos % (Auto) 0.0 (0-4.4) % Baso % (Auto) 0.2 (0.2-1.2) % Lymph # (Auto) 0.61 L (0.9-3.2) K/mm3 [place] # (Auto) 1.0 H (0.1-0.6) K/mm3 Eos # (Auto) 0.0 (0-0.3) K/mm3 Baso # (Auto) 0.0 (0.0-0.1) K/mm3 Abs Immat Gran (auto) 0.08 H (0.00-0.031) K/mm3 Absolute Neuts (auto) 11.3 H (1.3-6.7) K/mm3 Absolute Nucleated RBC 0.000 (0.0-0.012) K/mm3 Nucleated RBC % 0.0 (0.0-0.2) % PT 16.8 H (11.1-14.7) Seconds INR 1.4 APTT 32.9 (22.3-36.8) Seconds Sodium 134 L (137-145) mmol/L Potassium 3.7 (3.4-5.0) mmol/L Chloride 104 (98-107) mmol/L Carbon Dioxide 19 L (22-30) mmol/L Anion Gap 11 (4-12) mmol/L BUN 26 H (9-20) mg/dL Creatinine 1.26 (0.7-1.3) mg/dL Estim Creat Clear Calc 51 ml/min Estimated GFR 56 L (59 - ) Glucose 119 H (65-110) mg/dL Lactic Acid 1.9 (0.7-2.0) mmol/L Calcium 9.1 (8.4-10.2) mg/dL Total Bilirubin 1.2 (0.2-1.3) mg/dL AST 36 (17-59) U/L ALT 25 (6-50) U/L Alkaline Phosphatase 130 H (38-126) U/L Total Creatine Kinase (55-170) U/L Troponin I 0.039 H* Cancelled (0.000-0.034) ng/mL Total Protein 7.4 (6.3-8.2) g/dL Albumin 3.8 (3.5-5.1) g/dL Urine Color (Yellow) Urine Appearance (Clear) Urine pH (5.0-9.0) Ur Specific [place] (1.001-1.035) Urine Protein (Negative) mg/dL Urine Glucose (UA) (Negative) mg/dL Urine Ketones (Negative) mg/dL Ur Blood (Man) (Negative) Urine Nitrate (Negative) Urine Bilirubin (Negative) Urine Urobilinogen (<2.0) mg/dL Add Ur Microanalysis Leukocyte Esterase Rfl (Negative) JOSE/UL Urine RBC (0-2) /hpf Urine WBC (0-3) /hpf Ur Squamous Epith Cells (Few) /hpf Urine Bacteria /hpf Urine Casts Influenza A (RT-PCR) Negative (Negative) Influenza B (RT-PCR) Negative (Negative) RSV (RT-PCR) Negative (Negative) SARS-CoV-2 RNA (RT-PCR) Negative (Negative) 04/06/25 04/06/25 Range/Units 13:10 13:22 WBC (4.5-10.0) K/mm3 RBC (4.6-6.20) M/mm3 Hgb (14.0-18.0) g/dL Hct (42.0-52.0) % MCV (80-100) fl MCH (26-34) pg MCHC (32-36) g/dl RDW (11.5-14.5) % Plt Count (150-375) k/mm3 MPV (7.4-10.4) fl Immature Gran % (Auto) (0-0.5) % Neut % (Auto) (45.5-73.1) % Lymph % (Auto) (18.3-44.2) % [place] % (Auto) (2.6-8.5) % Eos % (Auto) (0-4.4) % Baso % (Auto) (0.2-1.2) % Lymph # (Auto) (0.9-3.2) K/mm3 [place] # (Auto) (0.1-0.6) K/mm3 Eos # (Auto) (0-0.3) K/mm3 Baso # (Auto) (0.0-0.1) K/mm3 Abs Immat Gran (auto) (0.00-0.031) K/mm3 Absolute Neuts (auto) (1.3-6.7) K/mm3 Absolute Nucleated RBC (0.0-0.012) K/mm3 Nucleated RBC % (0.0-0.2) % PT (11.1-14.7) Seconds INR APTT (22.3-36.8) Seconds Sodium (137-145) mmol/L Potassium (3.4-5.0) mmol/L Chloride (98-107) mmol/L Carbon Dioxide (22-30) mmol/L Anion Gap (4-12) mmol/L BUN (9-20) mg/dL Creatinine (0.7-1.3) mg/dL Estim Creat Clear Calc ml/min Estimated GFR (59 - ) Glucose (65-110) mg/dL Lactic Acid (0.7-2.0) mmol/L Calcium (8.4-10.2) mg/dL Total Bilirubin (0.2-1.3) mg/dL AST (17-59) U/L ALT (6-50) U/L Alkaline Phosphatase (38-126) U/L Total Creatine Kinase 203 H (55-170) U/L Troponin I 0.029 D (0.000-0.034) ng/mL Total Protein (6.3-8.2) g/dL Albumin (3.5-5.1) g/dL Urine Color Dark yellow (Yellow) Urine Appearance Cloudy H (Clear) Urine pH 5.5 (5.0-9.0) Ur Specific [place] > 1.045 H (1.001-1.035) Urine Protein 2+ H (Negative) mg/dL Urine Glucose (UA) 3+ H (Negative) mg/dL Urine Ketones Negative (Negative) mg/dL Ur Blood (Man) 3+ H (Negative) Urine Nitrate Negative (Negative) Urine Bilirubin Negative (Negative) Urine Urobilinogen 1.0 (<2.0) mg/dL Add Ur Microanalysis Reviewed Leukocyte Esterase Rfl Negative (Negative) JOSE/UL Urine RBC >100 H (0-2) /hpf Urine WBC 0-5 (0-3) /hpf Ur Squamous Epith Cells Occasional (Few) /hpf Urine Bacteria None seen /hpf Urine Casts 0-2 Influenza A (RT-PCR) (Negative) Influenza B (RT-PCR) (Negative) RSV (RT-PCR) (Negative) SARS-CoV-2 RNA (RT-PCR) (Negative) <Angelo Monroy MD - Last Filed: 04/06/25 15:26> Imaging Data Attestation: I personally reviewed and interpreted this imaging study as follows: < Gilma Jennings PA-C - Last Filed: 04/06/25 15:05> Radiologist's impression: ITS Impressions Chest X-Ray 04/06/25 10:48 Impression: 1: Large left upper lobe mass, consistent with bronchogenic carcinoma until proven otherwise. Recommend correlation with CT chest. Chest CTA 04/06/25 11:26 IMPRESSION: 1. No pulmonary embolism. 2. Consolidation the left upper lobe and lingula consistent with pneumonia. 3. Cardiomegaly. 4. Mild likely reactive mediastinal lymphadenopathy. <Gilma Jennings PA-C - Last Filed: 04/06/25 15:05> ECG Data EKG #1: Attestation: I personally reviewed and interpreted this ECG as follows: <Gilma Jennings PA-C - Last Filed: 04/06/25 15:05> ECG completion date: 04/06/25 <PEG Kramer Last Filed: 04/06/25 15:05> ECG completion time: 09:05 <PEG Kramer Last Filed: 04/06/25 15:05> EKG Interpretation: normal rate (84), sinus rhythm and non-specific ST changes <PEG Kramer Last Filed: 04/06/25 15:05> Pacemaker function: normal pacer function <PEG Kramer Last Filed: 04/06/25 15:05> Discharge Plan Discharge Clinical Impression: COLBY (acute kidney injury), Elevated troponin, Acute hypoxic respiratory failure Pneumonia Qualifiers: Pneumonia type: due to unspecified organism Laterality: unspecified laterality Lung location: unspecified part of lung Qualified Code(s): J18.9 - Pneumonia, unspecified organism <PEG Kramer Last Filed: 04/06/25 15:05> Patient Disposition: Still a Patient <PEG Kramer Last Filed: 04/06/25 15:05> Condition: Stable <PEG Kramer Last Filed: 04/06/25 15:05>
[2025-04-06 10:09] LABS: INR 1.4; Prothrombin Time 16.8 Seconds (11.1-14.7)
[2025-04-06 10:10] LABS: Partial Thromboplastin Time 32.9 Seconds (22.3-36.8)
--- OUTSIDE RECORDS SUMMARY | 2025-04-06 10:12 | XMS_ITS | Clinical Summary ---
Author Organization [facility] Address [address] [place] [address] Phone Care Team Providers Care Development Trainer Name Role Phone Asim Mahmood Primary Care Provider [phone] Allergies Active Allergy Reactions Criticality Noted Date [...] Abstract 02/15/2025 1:15 PM CDT Procedure visit [facility] AT [address] [place] [address] Pacemaker (Primary Dx); LBBB (left bundle branch block) 02/15/2025 11:30 AM CDT Office Visit [facility] AT [address] [place] [address] Norman Stewart MD Pacemaker (Primary Dx); Hx [...] Description 05/31/2025 2:15 PM CDT Procedure visit [facility] AT [address] [place] [address] 03/07/2026 11:00 AM CDT Office Visit [facility] AT [address] [place] [address] Norman Stewart MD [address] [place] [address] [address] [place] [address] Health Maintenance Due Date Last Done Comments [...] (#1) 2024 Medical Devices Implanted Type Area Ent Consultant Device Identifier Shelf Expiration Date Model / Serial / Lot Lead Pacing Capsure Fix Novus 45cm [id number] - Csc - [id number] Implanted:Qty: 1 on 05/10/2024 at [facility] Lead N/A: Heart [employer]- CRM - BULK BUY 12/29/2025 5076-45 / [id number] V / Lead Capsurefix Novus Mri 52cm Endocardial Pacing 5076-52 - [id number] Implanted:Qty: 1 on 05/10/2024 at [facility] Lead N/A: Heart [employer]- CRM - BULK BUY 01/09/2026 5076-52 / [id number] V / Lead Pace Attain Performa-S 88cm [id number] - [id number] Implanted:Qty: 1 on 05/10/2024 by Norman Stewart MD at [facility] Lead N/A: Heart [employer]- CRM - BULK BUY 12/29/2025 [id number] / [id number] / Pacemaker Crys Local Announcer-P Quad Mri Surescan [id number] - [id number] Implanted:Qty: 1 on 05/10/2024 at [facility] Pacemaker Left: Chest [employer]- CRM - BULK BUY 09/21/2025 [id number] / [id number] / Procedures Procedure Name Priority Date/Time Associated Diagnosis Comments UT REM INTERROG PM/LDLS PM/IDS <90 D TECH REVIEW Routine 02/15/2025 3:31 PM CDT Pacemaker LBBB (left bundle branch block) UT REM INTERROG PM/LDLS PM <90 D PHYS/QHP Routine 02/15/2025 3:31 PM CDT Pacemaker LBBB (left bundle branch block) from Last 3 Months Results * UT REM INTERROG PM/LDLS PM <90 D PHYS/QHP, UT REM INTERROG PM/LDLS PM/IDS <90 D TECH REVIEW (02/15/2025 3:31 PM CDT) 02/15/2025 3:31 PM CDT Narrative INTERFACE SYSTEM - 02/16/2025 3:34 PM CDT Seven Dorantes RN 02/16/2025 3:35 PM Remote Carelink Transmission Appropriate CRM CONSULTANT-P function. Presenting Rhythm: AF BVp Battery: 7.2 yrs. DIE MAKER BENCH STAMPING 98.6% Since remote 11/16/2024: AF burden 100%. Ventricular rates during AF > 100 bpm ~ 5%. 641 V Sensing episodes noted, 1.4 min/day. EF 30% as of 08/10/2024. Per Epic, Patient takes Plavix, metoprolol, aspirin. Patient notified of results. Norman Stewart MD CARDIAC SERVICES ORDERABLES Edit ed Result - Final Performing Organization Address City/State/[facility] Co de Phone Number INTERFACE SYSTEM Refer to clinic/hospital department from Last 3 Months Insurance MEDICARE PART A AND B [facility] [id number] [place] [address] [employer] Medicare Part D Advance Directives For more information, please contact: [phone] * Full Code (Latest Code Status on File) Date Activated Date Inactivated Comments 05/10/2024 6:27 PM 05/10/2024 10:25 PM * Full Code Date Activated Date Inactivated Comments 05/10/2024 1:10 PM 05/10/2024 6:27 PM Care Teams Development 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
--- OUTSIDE RECORDS SUMMARY | 2025-04-06 10:12 | XMS_ITS | Encounter Summary ---
Author Organization [facility] Address [address] [place] [address] Care Team Providers Care Wood Casket Assembler Name Role Phone Asim Mahmood DO Primary Care Provider [phone] Reason for Visit * Reason Onset Date Comments ECHO RESULT 08/15/2024 Encounter Details Date Type Department Care Team (Late st Contact Info) Description 08/15/[address] [facility] V[facility] At [address] [place] [id number] Norman Stewart MD [address] [place] [address] [address] [place] [address] ECHO RESULT Social History Tobacco [...] Description 05/31/2025 2:15 PM CDT Procedure visit [facility] AT [address] [place] [address] 03/07/2026 11:00 AM CDT Office Visit [facility] AT [address] [place] [address] Norman Stewart MD [address] [place] [address] [address] [place] [address] documented as of this encounter Visit Diagnoses Not on filedocumented in this encounter Care Teams Wood Casket Assembler Relationship Specialty Start Date End Date Asim Mahmood DO [address] [facility] [address] [place] [address] PCP - General Internal Medicine 02/29/24 documented as of this encounter
--- OUTSIDE RECORDS SUMMARY | 2025-04-06 10:12 | XMS_ITS ---
Author Organization [facility] [address] Address [address] [place] [address] Care Team Providers Care Dimension Quarry Supervisor Name Role Phone Chon Goode Primary Care Provider Active Problems Problem Noted Date Diagnosed Date Cardiac resynchronization th erapy pacemaker (CHIEF BANK EXAMINER-P) in place 05/10/2024 HFrEF (heart failure with reduced ejection fract ion) 01/20/2024 Atrial fibrillation 12/08/2023 Cardiomyopathy 04/22/2023 Medication side effects 10/02/2021 Aftercare following surgery of the circulatory s ystem, NEC 02/25/2021 Abnormal cardiovascular stress test 01/03/2021 Overview (01/03/2021): Added automatically from request for surgery [id number] LBBB (left bundle branch block) 12/31/2020 Premature atrial contractions 12/22/2019 Statin myopathy 12/22/2019 Mixed diabetic hyperlipidemi a associated with type 2 diabetes mellitus (CMS/HCC) 12/22/2019 Cervical myelopathy 11/02/2018 Spinal stenosis of lumbar re gion without neurogenic claudication 11/02/2018 Idiopathic peripheral neuropathy 07/29/2018 Lumbar spondylosis 07/29/2018 Coronary artery disease invo lving [place] coronary artery of [place] heart without angina pectoris 02/16/2018 Hypertension associated [...] vein coronary bypass graft with angina pectoris ([facility]) 01/14/2021 10/02/2021 Overview (01/14/2021): Added automatically from request for surgery [id number] Angina pectoris, unstable 01/03/2021 Overview (01/03/2021): Added automatically from request for surgery [id number] Dyslipidemia 02/16/2018 10/02/2021 Statin intolerance 02/16/2018 9 Abnormal blood chemistry level 05/28/2011 04/22/2023 Hypercholesterolemia 12/18/2008 021
--- OUTSIDE RECORDS SUMMARY | 2025-04-06 10:12 | XMS_ITS | Clinical Summary ---
Author Organization [facility] [address] Address [address] [place] [address] Care Team Providers Care Fire Equipment Inspector Name Role Phone Chon Goode Primary Care [...] Swelling,Other (See comments) Medium 02/16/2018 Back pain Cetbluy-Ikw-Rjo Reductase Inhibitors Other (See comments) Low 02/16/2018 [...] times a day. Active vit A,C and F-ovuaae-gtlxs als (OCCUVITE with LUTEIN) 1,000 unit-200 mg-60 [...] Diagnosed Date Cardiac resynchronization th erapy pacemaker (GRAPHICS ARTIST-P) in place 05/10/2024 HFrEF (heart failure with reduced ejection fract ion) 01/20/2024 Atrial fibrillation 12/08/2023 Cardiomyopathy 04/22/2023 Medication side effects 10/02/2021 Aftercare following surgery of the circulatory s JAKUB langley 02/25/2021 Abnormal cardiovascular stress test 01/03/2021 Overview (01/03/2021): Added automatically from request for surgery [id number] LBBB (left bundle branch block) 12/31/2020 Premature atrial contractions 12/22/2019 Statin myopathy 12/22/2019 Mixed diabetic hyperlipidemi a associated with type 2 diabetes mellitus ([facility]) 12/22/2019 Cervical myelopathy 11/02/2018 Spinal stenosis of lumbar re gion without neurogenic claudication 11/02/2018 Idiopathic peripheral neuropathy 07/29/2018 Lumbar spondylosis 07/29/2018 Coronary artery disease invo lving [place] coronary artery of [place] heart without angina pectoris 02/16/2018 Hypertension associated with diabetes 02/16/2018 MORENITA on CPAP 02/16/2018 Hx of CABG 02/16/2018 History of tobacco abuse 02/16/2018 Scar 08/07/2013 Subcutaneous nodule 08/07/2013 Skin neoplasm 06/30/2013 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 12/30/19 13 Resolved Problems Problem Noted Date Diagnosed Date Resolved Date Coronary artery disease invo lving autologous 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) 01/14/2021 10/02/2021 Overview (01/14/2021): Added automatically from request for surgery [id number] Angina pectoris, unstable 01/03/2021 Overview (01/03/2021): Added automatically from request for surgery [id number] Dyslipidemia 02/16/2018 10/02/2021 Statin intolerance 02/16/2018 9 Abnormal blood chemistry level 05/28/2011 04/22/2023 Hypercholesterolemia 12/18/2008 021 Encounters Date Type Department Care Team Description 03/22/2025 Telephone [facility] Card[facility] [address] [place] [address] Barrett Gu MD 02/12/2025 Telephone [facility] Card[facility] [address] [place] [address] Barrett Gu MD from Last 3 Months Surgical History Surgery Date Site/Laterality Comments OR CORONARY ARTERY BYPASS 1 CORONARY VENOUS GRAFT [...] Grandfather Javy Jimenez Hypertension Paternal Grandfather Javy Jimneez Relation Name Status Comments Father Gallito Jimenez [...] on file Legal Sex Male 11:44 PM BOAT PERSON Gender Identity Male 02/25/2021 9:12 AM CDT Sexual Orientation Not on file Obstetrics History Last Filed Vital Signs Vital Sign Reading Time Taken Comments Blood Pressure 136/80 10/31/2024 8:36 AM BOAT PERSON Pulse 72 10/31/2024 8:36 AM BOAT PERSON Temperature 36.1 C (97 F) 05/12/2023 2:20 PM CDT Respiratory Rate 16 01/27/2024 8:10 AM CDT Oxygen Saturation 99% 10/31/2024 8:36 AM BOAT PERSON Inhaled Oxygen Concentration - - Weight 101.6 kg (224 lb) 10/31/2024 8:36 AM BOAT PERSON Height 177.8 cm (5' 10) 10/31/2024 8:36 AM BOAT PERSON Body Mass Index 32.14 10/31/2024 8:36 AM BOAT PERSON Plan of Treatment Health Maintenance Due Date [...] history exists Medical Devices Implanted Type Area [employer] English Teacher Device Identifier Shelf Expiration Date Model / Serial / Lot Lisa Vascular Device Clsr Perclose Prostyle Sut-Mediatd Closure-Repai r Sys 29254-48 - S0 - [id number] Implanted:Qty : 1 on 05/12/2023 by Byron Horn MD at [facility] Vascular Closure Device Right: Femoral Lisa Vascular 01/22/2025 63816-87 / 0 / [id number] Procedures Procedure Name Priority Date/Time Associated Diagnosis Comments POCT LIPID PANEL Routine 10/31/2024 8:38 AM BOAT PERSON Coronary artery disease involving [place] coronary artery of [place] heart without angina pectoris BASIC METABOLIC PANEL Routine 12/03/2023 8:02 AM BOAT PERSON Hypertension associated with diabetes (HCC) Cardiomyopathy, unspecified type (HCC) HEMOGLOBIN A1C STAT 01/20/2021 6:51 AM CDT from Last 3 Months or Most Recently Relevant to Health Maintenance Results * POCT lipid panel (10/31/2024 8:38 AM BOAT PERSON) Cholesterol, POC 172 mg/dL HDL, POC 59 mg/dL Triglycerides, POC 123 mg/dL LDL Cholesterol POC 88 mg/dL Chol/HDL Ratio, POC 1.5 Non-HDL Cholesterol, POC 113 mg/dL Cholesterol Total, POC 172 mg/dL Capillary blood 10/31/2024 8 :38 AM BOAT PERSON Barrett Gu MD POINT OF CARE TEST ORDERA BLES Final Result * (ABNORMAL) Basic metabolic panel (12/03/2023 8:02 AM BOAT PERSON) Glucose 101(H) 65 - 99 mg/dL Maryuri Snappli-S oswald Martinez Comment: Fasting reference interval For [...] 9.4 8.6 - 10.3 mg/dL [facility] oswald Martinez Blood 12/03/2023 8:02 AM BOAT PERSON 12/03/2023 8:02 AM BOAT PERSON Narrative [facility] - 12/03/2023 6:33 PM BOAT PERSON FASTING:YES FASTING: YES Brandon Vega MD LAB BLOOD ORDERABLES Fin al Result [facility] [address] [place] [address] * Hemoglobin A1c (01/20/2021 6:51 AM CDT) Hgb A1C 5.2 4.0 - 5.6 % [facility] Estimated Average Glucose 103 mg/dL [facility] Comment: The ADA recommends reporting an estimated Average Glucose (eAG) with all Hemoglobin A1c results using the equation derived from a study of 507 normal and diabetic adults. Minority populations were underrepresented and children were not included. (Diabetes Care 31:8172-8095, 2008). The eAG is not equivalent to a fasting glucose. Blood specimen (specimen) 01/20/2021 6:51 AM CDT 01/20/2021 6:51 AM CDT Jossue Marshall MD LAB BLOOD ORDERABLES Final Result Performing Organization Address [facility] Co de Phone Number [facility] [address] Department [place] [address] from Last 3 Months or Most Recently Relevant to Health Maintenance [place] [address] [facility] MEDICARE [facility] MEDICARE [facility] [place] [address] [facility] Advance Directives For more information, please contact: [phone] Documents on File Type Date Recorded Patient Meat Grader Expl anation ADVANCE DIRECTIVE 05/13/2023 4:52 PM POWER OF SENIOR RESEARCH ASSOCIATE-MEDICAL * Full Code (Latest Code Status on File) Date Activated Date Inactivated Comments 05/12/2023 3:58 PM 05/12/2023 10:20 PM * Full Code Date Activated Date Inactivated Comments 01/20/2021 1:00 PM 01/24/2021 5:02 PM * Full Code Date Activated Date Inactivated Comments 01/10/2021 12:47 PM 01/10/2021 8:57 PM Care Teams Fire Equipment Inspector Relationship Specialty Start Date End Date Chon Goode PA [address] [facility] [address] [place] [address] PCP - General Physician Research Laboratory Specialist 10/31/24
--- OUTSIDE RECORDS SUMMARY | 2025-04-06 10:12 | XMS_ITS | Referral Summary ---
Author Organization [facility] [address] [facility] [address] Address [address] [place] [address] Care Team Providers Care Stock Patch Sawyer Name Role Phone Chon Goode Primary Care Provider Encounters Date Type Department Care Team Description 03/22/2025 Telephone [facility] Cardiology [address] [place] [address] Barrett Gu MD 02/12/2025 Telephone [facility] Cardiology [address] [place] [address] Barrett Gu MD from Last [...] Swelling,Other (See comments) Medium 02/16/2018 Back pain Lbaiuur-Gym-Eyd Reductase Inhibitors Other (See comments) Low 02/16/2018 [...] times a day. Active vit A,C and M-vdutyy-qxfey als (OCCUVITE with LUTEIN) 1,000 unit-200 mg-60 [...] Diagnosed Date Cardiac resynchronization th erapy pacemaker (PAINTER AND GRADER CORK-P) in place 05/10/2024 HFrEF (heart failure with reduced ejection fract ion) 01/20/2024 Atrial fibrillation 12/08/2023 Cardiomyopathy 04/22/2023 Medication side effects 10/02/2021 Aftercare following surgery of the circulatory s korin NEC 02/25/2021 Abnormal cardiovascular stress test 01/03/2021 Overview (01/03/2021): Added automatically from request for surgery [id number] LBBB (left bundle branch block) 12/31/2020 Premature atrial contractions 12/22/2019 Statin myopathy 12/22/2019 Mixed diabetic hyperlipidemi a associated with type 2 diabetes mellitus ([facility]) 12/22/2019 Cervical myelopathy 11/02/2018 Spinal stenosis [...] vein coronary bypass graft with angina pectoris ([facility]) 01/14/2021 10/02/2021 Overview (01/14/2021): Added automatically from request for surgery [id number] Angina pectoris, unstable 01/03/2021 Overview (01/03/2021): Added automatically from request for surgery [id number] Dyslipidemia 02/16/2018 10/02/2021 Statin intolerance 02/16/2018 9 [...] on file Legal Sex Male 11:44 PM GANTRY RIGGER Gender Identity Male 02/25/2021 9:12 AM CDT Sexual Orientation Not on file Last Filed Vital Signs Vital Sign Reading Time Taken Comments Blood Pressure 136/80 10/31/2024 8:36 AM GANTRY RIGGER Pulse 72 10/31/2024 8:36 AM GANTRY RIGGER Temperature 36.1 C (97 F) 05/12/2023 2:20 PM CDT Respiratory Rate 16 01/27/2024 8:10 AM CDT Oxygen Saturation 99% 10/31/2024 8:36 AM GANTRY RIGGER Inhaled Oxygen Concentration - - Weight 101.6 kg (224 lb) 10/31/2024 8:36 AM GANTRY RIGGER Height 177.8 cm (5' 10) 10/31/2024 8:36 AM GANTRY RIGGER Body Mass Index 32.14 10/31/2024 8:36 AM GANTRY RIGGER Plan of Treatment Not on file Medical Devices Implanted Type Area Condenser Operator Device Identifier Shelf Expiration Date Model / Serial / Lot Lisa Vascular Device Clsr Perclose Prostyle Sut-Mediatd Closure-Repai r Sys [id number] - S0 - [id number] Implanted:Qty : 1 on 05/12/2023 by Byron Horn MD at [facility] Vascular Closure Device Right: Femoral Lisa Vascular 01/22/2025 [id number] / 0 / [id number] Procedures Procedure Name Priority Date/Time Associated Diagnosis Comments POCT LIPID PANEL Routine 10/31/2024 8:38 AM GANTRY RIGGER Coronary artery disease involving [place] coronary artery of [place] heart without angina pectoris BASIC METABOLIC PANEL Routine 12/03/2023 8:02 AM GANTRY RIGGER Hypertension associated with diabetes (HCC) Cardiomyopathy, unspecified type (HCC) HEMOGLOBIN A1C STAT 01/20/2021 6:51 AM CDT from Last 3 Months or Most Recently Relevant to Health Maintenance Results * POCT lipid panel (10/31/2024 8:38 AM GANTRY RIGGER) Cholesterol, POC 172 mg/dL HDL, POC 59 mg/dL Triglycerides, POC 123 mg/dL LDL Cholesterol POC 88 mg/dL Chol/HDL Ratio, POC 1.5 Non-HDL Cholesterol, POC 113 mg/dL Cholesterol Total, POC 172 mg/dL Capillary blood 10/31/2024 8 :38 AM GANTRY RIGGER Barrett Gu MD POINT OF CARE TEST ORDERA BLES Final Result * (ABNORMAL) Basic metabolic panel (12/03/2023 8:02 AM GANTRY RIGGER) Glucose 101(H) 65 - 99 mg/dL Maryuri FlexElKurtis Martinez Comment: Fasting reference interval For someone [...] Martinez Calcium 9.4 8.6 - 10.3 mg/dL [facility] Blood 12/03/2023 8:02 AM GANTRY RIGGER 12/03/2023 8:02 AM GANTRY RIGGER Narrative [facility] - 12/03/2023 6:33 PM GANTRY RIGGER FASTING:YES FASTING: YES Brandon Vega MD LAB BLOOD ORDERABLES Fin al Result Performing Organization Address City/[facility]/ZIP Co de Phone Number [facility] [address] [place] [address] * Hemoglobin A1c (01/20/2021 6:51 AM CDT) Hgb A1C 5.2 4.0 - 5.6 % [facility] Estimated Average Glucose 103 mg/dL [facility] Comment: The ADA recommends reporting an estimated Average Glucose (eAG) with all Hemoglobin A1c results using the equation derived from a study of 507 normal and diabetic adults. Minority populations were underrepresented and children were not included. (Diabetes Care 31:9159-5364, 2008). The eAG is not equivalent to a fasting glucose. Blood specimen (specimen) 01/20/2021 6:51 AM CDT 01/20/2021 6:51 AM CDT Jossue Marshall MD LAB BLOOD ORDERABLES Final Result Performing Organization Address [facility] Co de Phone Number [facility] [address] Department of Laboratories [place], [place] [id number] from Last 3 Months or Most Recently Relevant to Health Maintenance Insurance MEDICARE [facility] MEDICARE [facility] MEDICARE [facility] [place] [address] [facility] Address: [address] [address] [place] [address] [facility] Advance Directives For more information, please contact: [phone] Documents on File Type Date Recorded Patient Market Research Consultant Expl anation ADVANCE DIRECTIVE 05/13/2023 4:52 PM POWER OF SILVER SPRAY WORKER-MEDICAL * Full Code (Latest Code Status on File) Date Activated Date Inactivated Comments 05/12/2023 3:58 PM 05/12/2023 10:20 PM * Full Code Date Activated Date Inactivated Comments 01/20/2021 1:00 PM 01/24/2021 5:02 PM * Full Code Date Activated Date Inactivated Comments 01/10/2021 12:47 PM 01/10/2021 8:57 PM Care Teams Stock Patch Sawyer Relationship Specialty Start Date End Date Chon Goode PA [address] [facility] [address] [place] [address] PCP - General Physician Transit Police Officer 10/31/24
[2025-04-06 10:24] LABS: Troponin I 0.039 ng/mL (0.000-0.034)
[2025-04-06 10:35] LABS: Influenza A QL RT-PCR Negative (Negative); Influenza B QL RT-PCR Negative (Negative); RSV RNA, RT-PCR Negative (Negative); SARS-CoV-2 RNA PCR Negative (Negative)
--- NOTE | 2025-04-06 11:24 | PC.NURSE ---
Bedside report received from Nu TORRES
[2025-04-06] MEDS: SODIUM CHLORIDE 0.9% IV 1,000 ML 999 ML IV CONT (11:55)
[2025-04-06 12:09] LABS: Lactic Acid Reflex 1.9 mmol/L (0.7-2.0)
[2025-04-06] MEDS: AZITHROMYCIN 500 MG/NS 250 ML 500 MG/250 ML BAG 250 MG IVPB (12:28)
[2025-04-06] MEDS: ACETAMINOPHEN 500 MG TABLET 1000 MG PO (13:12)
--- NOTE | 2025-04-06 13:35 | ECG_ITS ---
Test Date: 2025-04-06 13:44:46 Measurements Intervals [place] Rate: 77 P: 0 NC: 0 QRS: -87 QRSD: 195 T: 88 QT: 473 QTc: 537 Interpretive Statements ELECTRONIC VENTRICULAR PACEMAKER NO FURTHER INTERPRETATION IS POSSIBLE ATYPICAL ECG Compared to ECG 04/06/2025 09:46:42 No significant changes Electronically Signed On 04-06-2025 13:47:16 CDT by Elder Lee D.O.
[2025-04-06 13:41] LABS: Add Urine Microscopic? YES; Appearance Urine Cloudy (Clear); Bacteria Urine None Seen /hpf; Bilirubin Urine Negative (Negative); Blood Urine 3+ (Negative); Color Urine Dark Yellow (Yellow); Glucose Urine UA 3+ mg/dL (Negative); Ketones Urine Negative (Negative); Leukocyte Esterase Ur Negative LEU/UL (Negative); Need Manual Microscopic Reviewed; Nitrate Urine Negative (Negative); Non Pathogenic Casts 0-2; Protein Urine 2+ mg/dL (Negative); RBC Urine >100 /hpf (0-2); Specific Grav Ur > 1.045 (1.001-1.035); Squamous Epithelial Cell Urine Occasional /hpf (Few); WBC Urine 0-5 /hpf (0-3); pH Urine 5.5 (5.0-9.0)
[2025-04-06 13:54] LABS: Troponin I 0.029 ng/mL (0.000-0.034)
--- NOTE | 2025-04-06 14:26 | ADMGEN ---
This patient, Ketty Young, was admitted to IMU Room 204-01. Patient/family oriented to hospital policies and general routines including ID bracelet, bed and alarms, visiting hours, pain management, procedures, bathroom and other care routines, personal items, smoking policy, room service/diet, and visiting hours. Information on how to activate the Rapid Response Team has been discussed. Patient/Family are encouraged to report perceived risks to care and to ask questions if they do not understand what they are told or what they should do.
[2025-04-06 15:22] LABS: Creatine Kinase 203 U/L (55-170)
[2025-04-06 16:13] LABS: Troponin I 0.036 ng/mL (0.000-0.034)
--- NOTE | 2025-04-06 18:16 | P.HP_ITS ---
H&P: HPI History of Present Illness Date/Time: 04/06/25 18:16 Chief Complaint: Weakness Narrative: 74-year-old male past medical history pacemaker, CABG, hypertension, MORENITA presents to the hospital with weakness and a cough. In the ED the patient has leukocytosis at 12.9, hemoglobin of 13.8, sodium of 134, carbon dioxide 19, BUN of 26, alkaline phos at 130, CK of 203, 1st troponin 0.039, 2nd troponin 0.036, UA shows 100+ rbc's negative for infection, influenza A/B, RSV, COVID negative. Chest x-ray shows left upper lobe mass consistent so with for bronchogenic carcinoma. CTA shows no pulmonary embolism, . Consolidation the left upper lobe and lingula consistent with pneumonia and Mild likely reactive mediastinal lymphadenopathy. EKG shows ventricular pacemaker at 77 QTC 537. Review of Systems Review of Systems: 12 systems were reviewed and are negativ e except for as per HPI. [facility] Past Medical History Medical History Hx of cardiac pacemaker Other fatigue Sialadenitis Other nonspecific abnormal finding of lung field Numbness in feet High thyroid stimulating hormone (TSH) level Encounter for screening for malignant neoplasm of prostate Elevated CPK Dietary counseling and surveillance (11/12/15) Acute appendicitis with localized peritonitis Surgical History Surgical History H/O heart bypass surgery Family History Family History Sibling Hypertension Patient's sister is in good health Patient's brother is in good health Patient's sister is Mother Patient's mother is Hypertension Family history of malignant neoplasm Father Patient's father is Carcinoma of colon Family history of malignant melanoma Family history of primary malignant neoplasm of liver Social History Social History Smoking packs per day: 1 Smoking cigarettes per day: 20.0 Years smoked: 10 Smoking pack-years: 10.00 Smoking status: Former smoker Tobacco type: cigarettes Second hand tobacco smoke exposure: No Smoking end date: 10/25/77 Alcohol intake: current Drinks per week: 16 Substance use: never Substance use type: does not use Do You Feel Safe in your Home?: Yes Lack of Transportation: No Lack of Food: Never True Current Housing: I Have Housing Concerned About Future Housing: No Difficulty Paying Gas/Electric Bills: No Difficulty Paying for Meds: No Currently Unemployed: No Education: Don't Know Difficulty w/ Childcare or Family Care: No Living arrangements: with family Occupation/Education: retired 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 Gender identity (if verbalized by the patient): Male Spiritual care concerns: No Meds Home Medications and Allergies Home Medications ?Medication ?Instructions ?Recorded ?Confirmed ?Type aspirin 81 mg tablet,delayed 81 mg PO DAILY 12/11/19 04/06/25 History release (Adult Low Dose Aspirin) cholecalciferol (vitamin D3) 125 5,000 unit PO DAILY 12/11/19 04/06/25 History mcg (5,000 unit) tablet multivitamin (Multiple Vitamins 1 tablet PO DAILY 12/11/19 04/06/25 History tablet) vit C,E,zinc,copper-jivrj5e 250 1 cap PO DAILY 12/12/19 04/06/25 History mg-lutein 5 mg-zeaxanthin 1 mg capsule (Ocuvite Adult 50 Plus) ginkgo biloba 120 mg tablet 120 mg PO DAILY 03/17/21 04/06/25 History metoprolol tartrate 50 mg tablet 50 mg PO BID #180 tabs 01/14/22 04/06/25 Rx clopidogrel 75 mg tablet 75 mg PO DAILY #90 tabs 08/23/23 04/06/25 Rx empagliflozin 10 mg tablet 10 mg PO .HS 11/29/23 04/06/25 History (Jardiance) [id number] C-Mn 500 2 cap PO DAILY 11/29/23 04/06/25 History mg-400 mg capsule sacubitril 97 mg-valsartan 103 mg 1 tablet PO BID 11/29/23 04/06/25 History tablet (Entresto) turmeric root extract 500 mg 600 mg PO DAILY 11/29/23 04/06/25 History capsule magnesium oxide 400 mg PO DAILY 12/20/24 04/06/25 History alirocumab 75 mg/mL subcutaneous 75 mg subcut Q14D 04/06/25 04/06/25 History pen injector (Praluent Pen) magnesium 100 mg tablet 420 mg PO DAILY 04/06/25 04/06/25 History Allergies Allergy/AdvReac Type Severity Reaction Status Date / Time atorvastatin Allergy Severe chest Verified 04/06/25 09:44 pressure rosuvastatin Allergy Severe GI bleed, Verified 04/06/25 09:44 rash amlodipine Allergy Intermediate feet amd Verified 04/06/25 09:44 hands swell carvedilol Allergy Intermediate LBP, Verified 04/06/25 09:44 numbness and tinglin in legs and feet hydrochlorothiazide Allergy Intermediate chest Verified 04/06/25 09:44 pressure metoprolol Allergy Intermediate swelling Verified 04/06/25 09:44 hands and feet spironolactone Allergy Intermediate LBP, Verified 04/06/25 09:44 numbness/tingling in legs and feet ezetimibe Allergy Mild Cough Verified 04/06/25 09:44 lisinopril Allergy Mild cough Verified 04/06/25 09:44 Vital Signs Vital Signs - 24 hr 04/06/25 09:38 04/06/25 09:41 04/06/25 09:42 Temperature 97.5 F L Pulse Rate 83 77 74 Respiratory Rate 20 21 H 31 H Blood Pressure 142/104 H 142/104 H Pulse Oximetry 96 97 94 Oxygen Delivery Room Air Oxygen Flow Rate 04/06/25 09:45 04/06/25 10:51 04/06/25 11:00 Temperature Pulse Rate 72 70 90 Respiratory Rate 24 H 24 H Blood Pressure Pulse Oximetry 95 94 Oxygen Delivery Oxygen Flow Rate 04/06/25 11:23 04/06/25 11:25 04/06/25 11:27 Temperature Pulse Rate 71 73 74 Respiratory Rate Blood Pressure 118/61 133/62 127/60 Pulse Oximetry Oxygen Delivery Oxygen Flow Rate 04/06/25 12:02 04/06/25 12:28 04/06/25 13:34 Temperature 98.7 F 99.5 F Pulse Rate 88 72 86 Respiratory Rate 24 H 29 H 32 H Blood Pressure 137/68 137/68 129/57 L Pulse Oximetry 98 100 96 Oxygen Delivery Oxygen Flow Rate 04/06/25 13:52 04/06/25 14:20 04/06/25 14:50 Temperature 98.5 F 98.7 F Pulse Rate 76 Respiratory Rate 32 H Blood Pressure 116/59 L Pulse Oximetry 94 94 Oxygen Delivery Nasal Cannula Oxygen Flow Rate 3 04/06/25 15:47 Temperature 98.0 F Pulse Rate 77 Respiratory Rate 24 H Blood Pressure 123/55 L Pulse Oximetry 94 Oxygen Delivery Oxygen Flow Rate Exam Narrative: General: well appearing, appears stated age. HEENT: normocephalic, atraumatic. Mucous membranes moist. EOMI, PERRLA, bilateral sclera anicteric, no conjunctival injection. Neck supple without JVD, lymphadenopathy, or bruit. Respiratory: clear to ascultation bilaterally. No rales/rhonic/wheezes. Cardiovascular: Regular rate and rhythm, normal S1-S2 upon ascultation. No murmurs, rubs, or clicks. PMI is nondisplaced, capillary refill less than 3 second. Abdomen: Soft, round, no pulsatile masses, nondistended and nontender. No rebound, no guarding. No CVA tenderness, no hepatosplenomegaly. Bowel sounds present to all four quadrants. No high pitch or tinkling sounds, resonant to percussion. Extremities: No cyanosis, clubbing, or edema present. Pulses are palpable 2/2. Active ROM to all four extremities. Neuro: Alert and orientated x 4. PERRLA. Cranial nerves 2-12 intact without focal deficit. Skin: Warm, dry, and intact, without rash, erythema, or lesion. Psych: pleasant, cooperative, normal speech, normal affect, no hallucinations, no dysarthia H&P: Results Labs Labs: Short CBC 04/06/25 Range/Units 09:52 WBC 12.9 H (4.5-10.0) K/mm3 Hgb 13.8 L (14.0-18.0) g/dL Hct 41.3 L (42.0-52.0) % Plt Count 138 L (150-375) k/mm3 [facility] 04/06/25 09:52 Sodium 134 L Potassium 3.7 Chloride 104 Carbon Dioxide 19 L BUN 26 H Creatinine 1.26 Glucose 119 H Calcium 9.1 Cardiac Enzymes 04/06/25 04/06/25 04/06/25 Range/Units 09:52 09:52 13:22 Total Creatine Kinase 203 H (55-170) U/L Troponin I 0.039 H* Cancelled 0.029 D (0.000-0.034) ng/mL 04/06/25 Range/Units 15:44 Total Creatine Kinase (55-170) U/L Troponin I 0.036 H* D (0.000-0.034) ng/mL Liver Function 04/06/25 Range/Units 09:52 Total Bilirubin 1.2 (0.2-1.3) mg/dL AST 36 (17-59) U/L ALT 25 (6-50) U/L Alkaline Phosphatase 130 H (38-126) U/L Albumin 3.8 (3.5-5.1) g/dL Urine 04/06/25 Range/Units 13:10 Urine Color Dark yellow (Yellow) Urine Appearance Cloudy H (Clear) Urine pH 5.5 (5.0-9.0) Ur Specific [place] > 1.045 H (1.001-1.035) Urine Protein 2+ H (Negative) mg/dL Urine Glucose (UA) 3+ H (Negative) mg/dL Assessment and Plan Assessment and plan (1) Pneumonia: Qualifiers: Laterality: unspecified laterality Lung location: unspecified part of lung Pneumonia type: due to unspecified organism Qualified Code(s): J18.9 - Pneumonia, unspecified organism Code(s): J18.9 - Pneumonia, unspecified organism Status: Acute (2) Acute hypoxic respiratory failure: Code(s): J96.01 - Acute respiratory failure with hypoxia Status: Acute (3) Elevated troponin: Code(s): R79.89 - Other specified abnormal findings of blood chemistry Status: Acute (4) Essential (primary) hypertension: Code(s): I10 - Essential (primary) hypertension Status: Acute Assessment and Plan: Continue Entresto (5) CAD (coronary artery disease): Code(s): I25.10 - Atherosclerotic heart disease of [place] coronary artery without angina pectoris Status: Acute Assessment and Plan: Continue Entresto, metoprolol, Jardiance, and Plavix Hospitalist MIPS Advance Care Plan I have confirmed that the patient's Advanced Care Plan is present, code status is documented, or surrogate decision maker is listed in patient medical record.: Yes Medication Reconciliation I have utilized all available resources to obtain, update and review the patients current medications (includes all prescriptions, OTC, herbals, cannabis, and nutritional supplements).: Yes
[2025-04-06 18:58] LABS: Anion Gap 11 mmol/L (4-12); Blood Urea Nitrogen 25 mg/dL (9-20); Calcium 8.6 mg/dL (8.4-10.2); Carbon Dioxide 21 mmol/L (22-30); Chloride 102 mmol/L (98-107); Estimated CRCL calculation 54 ml/min; Estimated Glomerular Filt Rate 59; Glucose 123 mg/dL (65-110); Sodium 134 mmol/L (137-145)
[2025-04-06] MEDS: SODIUM CHLORIDE 0.9% IV 1,000 ML 100 ML IV CONT (19:25)
[2025-04-06] MEDS: ACETAMINOPHEN 325 MG TABLET 650 MG PO (19:25)
[2025-04-06] MEDS: EMPAGLIFLOZIN 10 MG TABLET PO (21:03)
--- NOTE | 2025-04-06 23:06 | P.HP_ITS ---
H&P: HPI History of Present Illness Date/Time: 04/06/25 23:06 Chief Complaint: Weakness Narrative: 74-year-old male past medical history pacemaker, CABG, hypertension, MORENITA presents to the hospital with weakness and a cough. Patient complains of productive cough, shortness of breath and weakness and increasing over the last several days. He states that today was so weak that he fell. Denies hitting his head denies loss of consciousness. Patient also complains of hemoptysis. Patient denies fevers and chills but endorses shaking for 2 hours followed by hot flashes. Denies vomiting. In the ED the patient has leukocytosis at 12.9, hemoglobin of 13.8, sodium of 134, carbon dioxide 19, BUN of 26, alkaline phos at 130, CK of 203, 1st troponin 0.039, 2nd troponin 0.036, UA shows 100+ rbc's negative for infection, influenza A/B, RSV, COVID negative. Chest x-ray shows left upper lobe mass consistent so with for bronchogenic carcinoma. CTA shows no pulmonary embolism, . Consolidation the left upper lobe and lingula consistent with pneumonia and Mild likely reactive mediastinal lymphadenopathy. EKG shows ventricular pacemaker at 77 QTC 537. Review of Systems Review of Systems: 12 systems were reviewed and are negativ e except for as per HPI. [facility] Past Medical History Medical History Hx of cardiac pacemaker Other fatigue Sialadenitis Other nonspecific abnormal finding of lung field Numbness in feet High thyroid stimulating hormone (TSH) level Encounter for screening for malignant neoplasm of prostate Elevated CPK Dietary counseling and surveillance (11/12/15) Acute appendicitis with localized peritonitis Surgical History Surgical History H/O heart bypass surgery Family History Family History Sibling Hypertension Patient's sister is in good health Patient's brother is in good health Patient's sister is Mother Patient's mother is Hypertension Family history of malignant neoplasm Father Patient's father is Carcinoma of colon Family history of malignant melanoma Family history of primary malignant neoplasm of liver Social History Social History Smoking packs per day: 1 Smoking cigarettes per day: 20.0 Years smoked: 10 Smoking pack-years: 10.00 Smoking status: Former smoker Tobacco type: cigarettes Second hand tobacco smoke exposure: No Smoking end date: 10/25/77 Alcohol intake: current Drinks per week: 16 Substance use: never Substance use type: does not use Do You Feel Safe in your Home?: Yes Lack of Transportation: No Lack of Food: Never True Current Housing: I Have Housing Concerned About Future Housing: No Difficulty Paying Gas/Electric Bills: No Difficulty Paying for Meds: No Currently Unemployed: No Education: Don't Know Difficulty w/ Childcare or Family Care: No Living arrangements: with family 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/Education: 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 Gender identity (if verbalized by the patient): Male Spiritual care concerns: No Meds Home Medications and Allergies Home Medications ?Medication ?Instructions ?Recorded ?Confirmed ?Type aspirin 81 mg tablet,delayed 81 mg PO DAILY 12/11/19 04/06/25 History release (Adult Low Dose Aspirin) cholecalciferol (vitamin D3) 125 5,000 unit PO DAILY 12/11/19 04/06/25 History mcg (5,000 unit) tablet multivitamin (Multiple Vitamins 1 tablet PO DAILY 12/11/19 04/06/25 History tablet) vit C,E,zinc,copper-xulre1t 250 1 cap PO DAILY 12/12/19 04/06/25 History mg-lutein 5 mg-zeaxanthin 1 mg capsule (Ocuvite Adult 50 Plus) ginkgo biloba 120 mg tablet 120 mg PO DAILY 03/17/21 04/06/25 History metoprolol tartrate 50 mg tablet 50 mg PO BID #180 tabs 01/14/22 04/06/25 Rx clopidogrel 75 mg tablet 75 mg PO DAILY #90 tabs 08/23/23 04/06/25 Rx empagliflozin 10 mg tablet 10 mg PO .HS 11/29/23 04/06/25 History (Jardiance) [id number] C-Mn 500 2 cap PO DAILY 11/29/23 04/06/25 History mg-400 mg capsule sacubitril 97 mg-valsartan 103 mg 1 tablet PO BID 11/29/23 04/06/25 History tablet (Entresto) turmeric root extract 500 mg 600 mg PO DAILY 11/29/23 04/06/25 History capsule magnesium oxide 400 mg PO DAILY 12/20/24 04/06/25 History alirocumab 75 mg/mL subcutaneous 75 mg subcut Q14D 04/06/25 04/06/25 History pen injector (Praluent Pen) magnesium 100 mg tablet 420 mg PO DAILY 04/06/25 04/06/25 History Allergies Allergy/AdvReac Type Severity Reaction Status Date / Time atorvastatin Allergy Severe chest Verified 04/06/25 09:44 pressure rosuvastatin Allergy Severe GI bleed, Verified 04/06/25 09:44 rash amlodipine Allergy Intermediate feet amd Verified 04/06/25 09:44 hands swell carvedilol Allergy Intermediate LBP, Verified 04/06/25 09:44 numbness and tinglin in legs and feet hydrochlorothiazide Allergy Intermediate chest Verified 04/06/25 09:44 pressure metoprolol Allergy Intermediate swelling Verified 04/06/25 09:44 hands and feet spironolactone Allergy Intermediate LBP, Verified 04/06/25 09:44 numbness/tingling in legs and feet ezetimibe Allergy Mild Cough Verified 04/06/25 09:44 lisinopril Allergy Mild cough Verified 04/06/25 09:44 Vital Signs Vital Signs - 24 hr 04/06/25 09:38 04/06/25 09:41 04/06/25 09:42 Temperature 97.5 F L Pulse Rate 83 77 74 Respiratory Rate 20 21 H 31 H Blood Pressure 142/104 H 142/104 H Pulse Oximetry 96 97 94 Oxygen Delivery Room Air Oxygen Flow Rate 04/06/25 09:45 04/06/25 10:51 04/06/25 11:00 Temperature Pulse Rate 72 70 90 Respiratory Rate 24 H 24 H Blood Pressure Pulse Oximetry 95 94 Oxygen Delivery Oxygen Flow Rate 04/06/25 11:23 04/06/25 11:25 04/06/25 11:27 Temperature Pulse Rate 71 73 74 Respiratory Rate Blood Pressure 118/61 133/62 127/60 Pulse Oximetry Oxygen Delivery Oxygen Flow Rate 04/06/25 12:02 04/06/25 12:28 04/06/25 13:34 Temperature 98.7 F 99.5 F Pulse Rate 88 72 86 Respiratory Rate 24 H 29 H 32 H Blood Pressure 137/68 137/68 129/57 L Pulse Oximetry 98 100 96 Oxygen Delivery Oxygen Flow Rate 04/06/25 13:52 04/06/25 14:20 04/06/25 14:50 Temperature 98.5 F 98.7 F Pulse Rate 76 Respiratory Rate 32 H Blood Pressure 116/59 L Pulse Oximetry 94 94 Oxygen Delivery Nasal Cannula Oxygen Flow Rate 3 04/06/25 15:47 04/06/25 16:00 04/06/25 16:00 Temperature 98.0 F Pulse Rate 77 73 Respiratory Rate 24 H Blood Pressure 123/55 L Pulse Oximetry 94 94 Oxygen Delivery Nasal Cannula Oxygen Flow Rate 3 04/06/25 18:00 04/06/25 19:25 04/06/25 19:39 Temperature 101 F H 101 F H Pulse Rate 79 80 Respiratory Rate 31 H Blood Pressure 116/49 L Pulse Oximetry 92 Oxygen Delivery Oxygen Flow Rate 04/06/25 20:00 04/06/25 21:00 04/06/25 21:03 Temperature 98.3 F Pulse Rate 89 Respiratory Rate Blood Pressure Pulse Oximetry 90 Oxygen Delivery CPAP Oxygen Flow Rate 04/06/25 21:58 04/06/25 23:02 Temperature Pulse Rate 99 Respiratory Rate Blood Pressure Pulse Oximetry 86 L Oxygen Delivery CPAP Oxygen Flow Rate 2 Exam Narrative: General: well appearing, appears stated age. HEENT: normocephalic, atraumatic. Mucous membranes moist. EOMI, PERRLA, bilateral sclera anicteric, no conjunctival injection. Neck supple without JVD, lymphadenopathy, or bruit. Respiratory: Diminished to ascultation bilaterally. No rales/rhonic/wheezes. Cardiovascular: Regular rate and rhythm, normal S1-S2 upon ascultation. No murmurs, rubs, or clicks. PMI is nondisplaced, capillary refill less than 3 second. Abdomen: Soft, round, no pulsatile masses, nondistended and nontender. No rebound, no guarding. No CVA tenderness, no hepatosplenomegaly. Bowel sounds present to all four quadrants. No high pitch or tinkling sounds, resonant to percussion. Extremities: No cyanosis, clubbing, or edema present. Pulses are palpable 2/2. Active ROM to all four extremities. Neuro: Alert and orientated x 4. PERRLA. Cranial nerves 2-12 intact without focal deficit. Skin: Warm, dry, and intact, without rash, erythema, or lesion. Psych: pleasant, cooperative, normal speech, normal affect, no hallucinations, no dysarthia Home CPAP on 2 L oxygen H&P: Results Labs Labs: Short CBC 04/06/25 Range/Units 09:52 WBC 12.9 H (4.5-10.0) K/mm3 Hgb 13.8 L (14.0-18.0) g/dL Hct 41.3 L (42.0-52.0) % Plt Count 138 L (150-375) k/mm3 BMP 04/06/25 04/06/25 09:52 18:38 Sodium 134 L 134 L Potassium 3.7 4.0 Chloride 104 102 Carbon Dioxide 19 L 21 L BUN 26 H 25 H Creatinine 1.26 1.19 Glucose 119 H 123 H Calcium 9.1 8.6 Cardiac Enzymes 04/06/25 04/06/25 04/06/25 Range/Units 09:52 09:52 13:22 Total Creatine Kinase 203 H (55-170) U/L Troponin I 0.039 H* Cancelled 0.029 D (0.000-0.034) ng/mL 04/06/25 Range/Units 15:44 Total Creatine Kinase (55-170) U/L Troponin I 0.036 H* D (0.000-0.034) ng/mL Liver Function 04/06/25 Range/Units 09:52 Total Bilirubin 1.2 (0.2-1.3) mg/dL AST 36 (17-59) U/L ALT 25 (6-50) U/L Alkaline Phosphatase 130 H (38-126) U/L Albumin 3.8 (3.5-5.1) g/dL Urine 04/06/25 Range/Units 13:10 Urine Color Dark yellow (Yellow) Urine Appearance Cloudy H (Clear) Urine pH 5.5 (5.0-9.0) Ur Specific [place] > 1.045 H (1.001-1.035) Urine Protein 2+ H (Negative) mg/dL Urine Glucose (UA) 3+ H (Negative) mg/dL Assessment and Plan Assessment and plan (1) Pneumonia: Qualifiers: Laterality: unspecified laterality Lung location: unspecified part of lung Pneumonia type: due to unspecified organism Qualified Code(s): J18.9 - Pneumonia, unspecified organism Code(s): J18.9 - Pneumonia, unspecified organism Status: Acute Assessment and Plan: Chest x-ray read with lung mass however CT shows pneumonia Azithromycin changed to doxycycline due to QTC Continue Rocephin guaifenesin Incentive spirometer (2) Acute hypoxic respiratory failure: Code(s): J96.01 - Acute respiratory failure with hypoxia Status: Acute Assessment and Plan: Secondary to above Wean oxygen as able CPAP at night (3) Elevated troponin: Code(s): R79.89 - Other specified abnormal findings of blood chemistry Status: Acute Assessment and Plan: Trend troponins EKG p.r.n. for chest pain Nitro p.r.n. for chest pain Aspirin given Holding off on heparin drip (4) Essential (primary) hypertension: Code(s): I10 - Essential (primary) hypertension Status: Acute Assessment and Plan: Continue Entresto (5) CAD (coronary artery disease): Code(s): I25.10 - Atherosclerotic heart disease of [place] coronary artery without angina pectoris Status: Acute Assessment and Plan: Continue Entresto, metoprolol, Jardiance, and Plavix Quality VTE Prophylaxis VTE prophylaxis: mechanical ordered and pharmacologic ordered Hospitalist MIPS Advance Care Plan I have confirmed that the patient's Advanced Care Plan is present, code status is documented, or surrogate decision maker is listed in patient medical record.: Yes Medication Reconciliation I have utilized all available resources to obtain, update and review the patients current medications (includes all prescriptions, OTC, herbals, cannabis, and nutritional supplements).: Yes
[2025-04-06] MEDS: guaiFENesin/DEXTROMETHORPHAN 10 ML UDC PO (23:46)
[2025-04-07] VITALS (21 sets, daily range): BP systolic 102–140; BP diastolic 47–87; PULSE 75–95; RESP 20–28; TEMP 36.6–38.3; O2SAT 90–94
[2025-04-07 04:53] LABS: Basophils Percent Auto 0.2 % (0.2-1.2); Hemoglobin 12.6 g/dL (14.0-18.0); Immature Granulocyte Absolute 0.04 K/mm3 (0.00-0.031); Immature Granulocyte Percent A 0.4 % (0-0.5); Immature Platelet Fraction Pct 3.6 % (0.9-11.2); Lymphocytes Absolute Auto 0.61 K/mm3 (0.9-3.2); Lymphocytes Percent Auto 6.6 % (18.3-44.2); Mean Corpuscular HGB Conc 32.3 g/dl (32-36); Mean Corpuscular Hemoglobin 31.7 pg (26-34); Mean Corpuscular Volume 98.2 fl (80-100); Mean Platelet Volume 10.6 fl (7.4-10.4); Monocytes Absolute Auto 0.7 K/mm3 (0.1-0.6); Monocytes Percent Auto 7.2 % (2.6-8.5); Neutrophils Absolute Auto 7.9 K/mm3 (1.3-6.7); Neutrophils Percent Auto 85.6 % (45.5-73.1); Platelet Count Result 131 k/mm3 (150-375); Red Blood Count 3.97 M/mm3 (4.6-6.20); Red Cell Distribution Width 14.1 % (11.5-14.5); White Blood Count 9.2 K/mm3 (4.5-10.0)
[2025-04-07] MEDS: SODIUM CHLORIDE 0.9% IV 1,000 ML 100 ML IV CONT ×2 (05:07→14:58)
[2025-04-07] MEDS: guaiFENesin/DEXTROMETHORPHAN 10 ML UDC PO ×4 (05:07→20:04)
--- NOTE | 2025-04-07 08:19 | P.PNIM_ITS ---
Progress Note: A&P Assessment and Plan (1) Pneumonia: Qualifiers: Laterality: unspecified laterality Lung location: unspecified part of lung Pneumonia type: due to unspecified organism Qualified Code(s): J18.9 - Pneumonia, unspecified organism Code(s): J18.9 - Pneumonia, unspecified organism Status: Acute Assessment and Plan: Chest x-ray read with lung mass however CT shows pneumonia Azithromycin changed to doxycycline due to QTC Continue Rocephin guaifenesin Incentive spirometer (2) Acute hypoxic respiratory failure: Code(s): J96.01 - Acute respiratory failure with hypoxia Status: Acute Assessment and Plan: Secondary to above Wean oxygen as able CPAP at night (3) Elevated troponin: Code(s): R79.89 - Other specified abnormal findings of blood chemistry Status: Acute Assessment and Plan: Trend troponins EKG p.r.n. for chest pain Nitro p.r.n. for chest pain Aspirin given Holding off on heparin drip (4) Essential (primary) hypertension: Code(s): I10 - Essential (primary) hypertension Status: Acute Assessment and Plan: Continue Entresto (5) CAD (coronary artery disease): Code(s): I25.10 - Atherosclerotic heart disease of [place] coronary artery without angina pectoris Status: Acute Assessment and Plan: Continue Entresto, metoprolol, Jardiance, and Plavix Subjective Date/time seen: 04/07/25 08:19 Interval history: Patient was examined at the bedside along with his . Patient do not oxygen at home and occasionally uses walker. No history of CVA. Patient had double by pass surgery and follows up with . Patient reports he had a echocardiogram last year and his ejection fraction was low and started on GDMT. Patient reports that he had a similar symptoms when he had heart attack. Patient was not feeling well from Wednesday which includes shivering and diaphoresis and extreme fatigue. Patient also had cough. Chest CTA shows no pulmonary embolism but consolidation in the left upper lobe and lingula consistent with pneumonia, cardiomegaly and mild likely reactive mediastinal lymphadenopathy. Patient is currently on ceftriaxone and doxycycline. Car diology is consulted due to elevated troponin and extensive cardiac history. Review of Systems Review of Systems: 12 systems were reviewed and are negativ e except for as per HPI. Exam Narrative: General: well appearing, appears stated age. HEENT: normocephalic, atraumatic. Mucous membranes moist. EOMI, PERRLA, bilateral sclera anicteric, no conjunctival injection. Neck supple without JVD, lymphadenopathy, or bruit. Respiratory: Diminished to ascultation bilaterally. No rales/rhonic/wheezes. Cardiovascular: Regular rate and rhythm, normal S1-S2 upon ascultation. No murmurs, rubs, or clicks. PMI is nondisplaced, capillary refill less than 3 second. Abdomen: Soft, round, no pulsatile masses, nondistended and nontender. No rebound, no guarding. No CVA tenderness, no hepatosplenomegaly. Bowel sounds present to all four quadrants. No high pitch or tinkling sounds, resonant to percussion. Extremities: No cyanosis, clubbing, or edema present. Pulses are palpable 2/2. Active ROM to all four extremities. Neuro: Alert and orientated x 4. PERRLA. Cranial nerves 2-12 intact without focal deficit. Skin: Warm, dry, and intact, without rash, erythema, or lesion. Psych: pleasant, cooperative, normal speech, normal affect, no hallucinations, no dysarthia Home CPAP on 2 L oxygen Objective Data Vital Signs Vital Signs: Vital Signs - 24 hr 04/06/25 09:38 04/06/25 09:41 04/06/25 09:42 Temperature 97.5 F L Pulse Rate 83 77 74 Respiratory Rate 20 21 H 31 H Blood Pressure 142/104 H 142/104 H Pulse Oximetry 96 97 94 Oxygen Delivery Room Air Oxygen Flow Rate 04/06/25 09:45 04/06/25 10:51 04/06/25 11:00 Temperature Pulse Rate 72 70 90 Respiratory Rate 24 H 24 H Blood Pressure Pulse Oximetry 95 94 Oxygen Delivery Oxygen Flow Rate 04/06/25 11:23 04/06/25 11:25 04/06/25 11:27 Temperature Pulse Rate 71 73 74 Respiratory Rate Blood Pressure 118/61 133/62 127/60 Pulse Oximetry Oxygen Delivery Oxygen Flow Rate 04/06/25 12:02 04/06/25 12:28 04/06/25 13:34 Temperature 98.7 F 99.5 F Pulse Rate 88 72 86 Respiratory Rate 24 H 29 H 32 H Blood Pressure 137/68 137/68 129/57 L Pulse Oximetry 98 100 96 Oxygen Delivery Oxygen Flow Rate 04/06/25 13:52 04/06/25 14:20 04/06/25 14:50 Temperature 98.5 F 98.7 F Pulse Rate 76 Respiratory Rate 32 H Blood Pressure 116/59 L Pulse Oximetry 94 94 Oxygen Delivery Nasal Cannula Oxygen Flow Rate 3 04/06/25 15:47 04/06/25 16:00 04/06/25 16:00 Temperature 98.0 F Pulse Rate 77 73 Respiratory Rate 24 H Blood Pressure 123/55 L Pulse Oximetry 94 94 Oxygen Delivery Nasal Cannula Oxygen Flow Rate 3 04/06/25 18:00 04/06/25 19:25 04/06/25 19:39 Temperature 101 F H 101 F H Pulse Rate 79 80 Respiratory Rate 31 H Blood Pressure 116/49 L Pulse Oximetry 92 Oxygen Delivery Oxygen Flow Rate 04/06/25 20:00 04/06/25 21:00 04/06/25 21:03 Temperature 98.3 F Pulse Rate 89 Respiratory Rate Blood Pressure Pulse Oximetry 90 Oxygen Delivery CPAP Oxygen Flow Rate 04/06/25 21:58 04/06/25 22:25 04/06/25 23:02 Temperature Pulse Rate 99 Respiratory Rate Blood Pressure Pulse Oximetry 90 86 L Oxygen Delivery Autopap CPAP Oxygen Flow Rate 2 04/06/25 23:53 04/07/25 00:00 04/07/25 00:00 Temperature 100.9 F H Pulse Rate 83 82 Respiratory Rate 20 Blood Pressure 116/47 L Pulse Oximetry 89 L 90 Oxygen Delivery CPAP Oxygen Flow Rate 3 04/07/25 02:00 04/07/25 02:03 04/07/25 04:00 Temperature Pulse Rate 81 Respiratory Rate Blood Pressure Pulse Oximetry 91 92 Oxygen Delivery Autopap CPAP Oxygen Flow Rate 3 04/07/25 04:00 04/07/25 04:00 04/07/25 06:00 Temperature 99.3 F Pulse Rate 76 77 80 Respiratory Rate 20 Blood Pressure 132/59 L Pulse Oximetry 90 Oxygen Delivery Oxygen Flow Rate Intake/Output Intake/Output: Intake & Output 04/04/25 04/05/25 04/06/25 04/07/25 23:59 23:59 23:59 23:59 Intake Total 1850 1370 Output Total 450 900 Balance 1400 470 Meds/Results Medications: Active Medications Generic Name Dose Route Start Last Admin Trade Name Freq PRN Reason Stop Dose Admin Acetaminophen 650 mg 04/06/25 12:17 04/06/25 19:25 Acetaminophen 325 Mg Tablet PO 650 mg Q4H PRN Administration Mild Pain (1-3) or Fever Aspirin 81 mg 04/07/25 09:00 Aspirin 81 Mg Enteric Tablet PO DAILY [facility] Clopidogrel Bisulfate 75 mg 04/07/25 09:00 Clopidogrel Bisulfate 75 Mg Tablet PO DAILY [facility] Dextrose 12.5 gm 04/06/25 12:20 Dextrose 50% 25 Gm/50 Ml Syringe IV PUSH PRN PRN Hypoglycemia Protocol Doxycycline Hyclate 100 mg 04/07/25 09:00 Doxycycline Hyclate 100 Mg Tablet PO Q12HR [facility]RA Empagliflozin 10 mg 04/06/25 21:00 04/06/25 21:03 Empagliflozin 10 Mg Tablet PO 10 mg HS MAYRA Administration Enoxaparin Sodium 40 mg 04/07/25 09:00 Enoxaparin 40 Mg/0.4 Ml Syringe SUB-Q DAILY [facility] Glucagon 1 mg 04/06/25 12:20 Glucagon For Inj 1 Mg Vial IM PRN PRN Hypoglycemia Protocol Glucose 15 gm 04/06/25 12:20 Glucose Oral Gel 15 Gm Of Glucse In 37.5 Gm Tube PO PRN PRN Hypoglycemia Protocol Guaifenesin/Dextromethorphan 10 ml 04/06/25 23:30 04/07/25 05:07 Guaifenesin/Dextromethorphan 10 Ml Udc PO 10 ml Q4HR MAYRA Administration Ceftriaxone Sodium 1 gm in 50 mls @ 100 mls/hr 04/07/25 09:00 Rocephin 1 Gm/Ns 50 Ml IVPB Q24H [facility]RA Dextrose 1,000 mls @ 100 mls/hr 04/06/25 12:20 Dextrose 5% 1,000 Ml IVPB PRN PRN Hypoglycemia Protocol Sodium Chloride 1,000 mls @ 100 mls/hr 04/06/25 18:25 04/07/25 05:07 Normal Saline Iv IV CONT 100 mls/hr .Q10H MAYRA Administration Metoprolol Tartrate 50 mg 04/07/25 09:00 Metoprolol Tartrate 50 Mg Tab PO Q12HR [facility]RA Ondansetron HCl 4 mg 04/06/25 12:17 Ondansetron Inj 4 Mg/2 Ml Vial IV PUSH Q4H PRN Nausea Sacubitril/Valsartan 1 tab 04/07/25 09:00 Sacubitril/Valsartan 97-103 Mg Tablet PO BID [facility] Radiology Results: ITS Impressions Chest X-Ray 04/06/25 10:48 Impression: 1: Large left upper lobe mass, consistent with bronchogenic carcinoma until proven otherwise. Recommend correlation with CT chest. Chest CTA 04/06/25 11:26 IMPRESSION: 1. No pulmonary embolism. 2. Consolidation the left upper lobe and lingula consistent with pneumonia. 3. Cardiomegaly. 4. Mild likely reactive mediastinal lymphadenopathy. Labs Labs: Laboratory Results - last 24 hr 04/06/25 04/06/25 04/06/25 09:52 09:52 11:46 WBC 12.9 H RBC 4.30 L Hgb 13.8 L Hct 41.3 L MCV 96.0 MCH 32.1 MCHC 33.4 RDW 13.7 Plt Count 138 L MPV 9.5 Immature Gran % (Auto) 0.6 H Neut % (Auto) 87.1 H Lymph % (Auto) 4.7 L [place] % (Auto) 7.4 Eos % (Auto) 0.0 Baso % (Auto) 0.2 Lymph # (Auto) 0.61 L [place] # (Auto) 1.0 H Eos # (Auto) 0.0 Baso # (Auto) 0.0 Abs Immat Gran (auto) 0.08 H Absolute Neuts (auto) 11.3 H Absolute Nucleated RBC 0.000 Nucleated RBC % 0.0 % Immature Plt Fraction PT 16.8 H INR 1.4 APTT 32.9 Sodium 134 L Potassium 3.7 Chloride 104 Carbon Dioxide 19 L Anion Gap 11 BUN 26 H Creatinine 1.26 Estim Creat Clear Calc 51 Estimated GFR 56 L Glucose 119 H Lactic Acid 1.9 Calcium 9.1 Total Bilirubin 1.2 AST 36 ALT 25 Alkaline Phosphatase 130 H Total Creatine Kinase Troponin I 0.039 H* Cancelled Total Protein 7.4 Albumin 3.8 Urine Color Urine Appearance Urine pH Ur Specific [place] Urine Protein Urine Glucose (UA) Urine Ketones Ur Blood (Man) Urine Nitrate Urine Bilirubin Urine Urobilinogen Add Ur Microanalysis Leukocyte Esterase Rfl Urine RBC Urine WBC Ur Squamous Epith Cells Urine Bacteria Urine Casts Influenza A (RT-PCR) Negative Influenza B (RT-PCR) Negative RSV (RT-PCR) Negative SARS-CoV-2 RNA (RT-PCR) Negative 04/06/25 04/06/25 04/06/25 13:10 13:22 15:44 WBC RBC Hgb Hct MCV MCH MCHC RDW Plt Count MPV Immature Gran % (Auto) Neut % (Auto) Lymph % (Auto) [place] % (Auto) Eos % (Auto) Baso % (Auto) Lymph # (Auto) [place] # (Auto) Eos # (Auto) Baso # (Auto) Abs Immat Gran (auto) Absolute Neuts (auto) Absolute Nucleated RBC Nucleated RBC % % Immature Plt Fraction PT INR APTT Sodium Potassium Chloride Carbon Dioxide Anion Gap BUN Creatinine Estim Creat Clear Calc Estimated GFR Glucose Lactic Acid Calcium Total Bilirubin AST ALT Alkaline Phosphatase Total Creatine Kinase 203 H Troponin I 0.029 D 0.036 H* D Total Protein Albumin Urine Color Dark yellow Urine Appearance Cloudy H Urine pH 5.5 Ur Specific [place] > 1.045 H Urine Protein 2+ H Urine Glucose (UA) 3+ H Urine Ketones Negative Ur Blood (Man) 3+ H Urine Nitrate Negative Urine Bilirubin Negative Urine Urobilinogen 1.0 Add Ur Microanalysis Reviewed Leukocyte Esterase Rfl Negative Urine RBC >100 H Urine WBC 0-5 Ur Squamous Epith Cells Occasional Urine Bacteria None seen Urine Casts 0-2 Influenza A (RT-PCR) Influenza B (RT-PCR) RSV (RT-PCR) SARS-CoV-2 RNA (RT-PCR) 04/06/25 04/07/25 18:38 04:17 WBC 9.2 RBC 3.97 L Hgb 12.6 L Hct 39.0 L MCV 98.2 MCH 31.7 MCHC 32.3 RDW 14.1 Plt Count 131 L MPV 10.6 H Immature Gran % (Auto) 0.4 Neut % (Auto) 85.6 H Lymph % (Auto) 6.6 L [place] % (Auto) 7.2 Eos % (Auto) 0.0 Baso % (Auto) 0.2 Lymph # (Auto) 0.61 L [place] # (Auto) 0.7 H Eos # (Auto) 0.0 Baso # (Auto) 0.0 Abs Immat Gran (auto) 0.04 H Absolute Neuts (auto) 7.9 H Absolute Nucleated RBC 0.000 Nucleated RBC % 0.0 % Immature Plt Fraction 3.6 PT INR APTT Sodium 134 L Potassium 4.0 Chloride 102 Carbon Dioxide 21 L Anion Gap 11 BUN 25 H Creatinine 1.19 Estim Creat Clear Calc 54 Estimated GFR 59 Glucose 123 H Lactic Acid Calcium 8.6 Total Bilirubin AST ALT Alkaline Phosphatase Total Creatine Kinase Troponin I Total Protein Albumin Urine Color Urine Appearance Urine pH Ur Specific [place] Urine Protein Urine Glucose (UA) Urine Ketones Ur Blood (Man) Urine Nitrate Urine Bilirubin Urine Urobilinogen Add Ur Microanalysis Leukocyte Esterase Rfl Urine RBC Urine WBC Ur Squamous Epith Cells Urine Bacteria Urine Casts Influenza A (RT-PCR) Influenza B (RT-PCR) RSV (RT-PCR) SARS-CoV-2 RNA (RT-PCR) Quality VTE Prophylaxis VTE prophylaxis: mechanical ordered and pharmacologic ordered Hospitalist MIPS Advance Care Plan I have confirmed that the patient's Advanced Care Plan is present, code status is documented, or surrogate decision maker is listed in patient medical record.: Yes Medication Reconciliation I have utilized all available resources to obtain, update and review the patients current medications (includes all prescriptions, OTC, herbals, cannabis , and nutritional supplements).: Yes
[2025-04-07 09:09] LABS: Troponin I 0.213 ng/mL (0.000-0.034)
[2025-04-07] MEDS: ENOXAPARIN 40 MG/0.4 ML SYRINGE SUB-Q (09:22)
[2025-04-07] MEDS: ASPIRIN 81 MG ENTERIC TABLET PO (09:23)
[2025-04-07] MEDS: DOXYCYCLINE HYCLATE 100 MG TABLET PO ×2 (09:23→20:05)
[2025-04-07] MEDS: METOPROLOL TARTRATE 50 MG TAB PO ×2 (09:23→20:04)
[2025-04-07] MEDS: SACUBITRIL/VALSARTAN 97-103 MG TABLET 1 TAB PO ×2 (09:23→17:50)
[2025-04-07] MEDS: CLOPIDOGREL BISULFATE 75 MG TABLET PO (09:24)
[2025-04-07 11:19] LABS: Anion Gap 11 mmol/L (4-12); Blood Urea Nitrogen 26 mg/dL (9-20); Calcium 8.3 mg/dL (8.4-10.2); Carbon Dioxide 18 mmol/L (22-30); Chloride 105 mmol/L (98-107); Creatine Kinase 423 U/L (55-170); Estimated CRCL calculation 54 ml/min; Estimated Glomerular Filt Rate 59; Glucose 113 mg/dL (65-110); Potassium 3.7 mmol/L (3.4-5.0); Sodium 134 mmol/L (137-145)
[2025-04-07 11:34] LABS: INR 1.4; Prothrombin Time 17.1 Seconds (11.1-14.7)
[2025-04-07 11:35] LABS: Partial Thromboplastin Time 40.9 Seconds (22.3-36.8)
--- NOTE | 2025-04-07 12:38 | PM.CNCAR ---
Assessment and Plan Assessment and plan (1) Elevated troponin: Code(s): R79.89 - Other specified abnormal findings of blood chemistry Status: Acute Assessment and Plan: Has had some minor bump in troponins but I do not think they represent acute plaque rupture. He is sick with pneumonia and possible urinary tract infection. He had fevers and chills and generalized weakness and an x-ray which is consistent with pneumonia. (2) CAD (coronary artery disease): Code(s): I25.10 - Atherosclerotic heart disease of [place] coronary artery without angina pectoris Status: Acute Assessment and Plan: History of CABG. Continue aspirin, clopidogrel and his other usual cardiac regimen including metoprolol, Entresto (3) Essential (primary) hypertension: Code(s): I10 - Essential (primary) hypertension Status: Acute Assessment and Plan: At goal (4) COLBY (acute kidney injury): Code(s): N17.9 - Acute kidney failure, unspecified Status: Acute Assessment and Plan: Receiving IV fluids. Caution as to not cause iatrogenic volume overload (5) Pneumonia: Qualifiers: Laterality: unspecified laterality Lung location: unspecified part of lung Pneumonia type: due to unspecified organism Qualified Code(s): J18.9 - Pneumonia, unspecified organism Code(s): J18.9 - Pneumonia, unspecified organism Status: Acute Assessment and Plan: On antibiotics per hospitalist (6) Biventricular cardiac pacemaker in situ: Code(s): Z95.0 - Presence of cardiac pacemaker Status: Acute Assessment and Plan: Functioning normally (7) Ischemic cardiomyopathy: Code(s): I25.5 - Ischemic cardiomyopathy Status: Acute Assessment and Plan: Continue Entresto, metoprolol, Jardiance (8) Persistent atrial fibrillation: Code(s): I48.19 - Other persistent atrial fibrillation Status: Acute Assessment and Plan: Patient had previously been prescribed anticoagulation form of Eliquis but he found to be unaffordable and after having an extensive conversation with him in the past he refuses. He wishes to remain on aspirin and clopidogrel. History of Present Illness History of Present Illness Consult date/time: 04/07/25 12:38 Requesting physician: Kade Orozco MD Consult reason: Other (Elevated troponin) Reason For Visit: dizziness Narrative: Date of service 04/07/2025 Reason for consultation: Elevated troponin Requesting provider, Dr. 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 Symptoms started 4 days ago. He slept all day on Wednesday. The following day had some subjective fevers, chills as well as sweatiness. Wednesday he had no energy and felt very unstable on his feet. He then had minor falls on and Wednesday and due to persistent and ongoing symptoms he came to hospital for further workup evaluation. Chest x-ray shows a right upper lobe mass consistent with pneumonia. Urine is also very dark. He denies any chest pain. Does have a cough. No significant shortness of breath at rest. No syncope, presyncope, paroxysmal nocturnal dyspnea, orthopnea, edema palpitations. His especially became concerned and restarted coughing up some blood Review of Systems Review of Systems: All systems reviewed & are unremarkable except as noted in HPI and below Constitutional: Constitutional: Reports body ache(s), Reports chills, Reports fatigue, Reports lethargy and Reports weakness Eyes: Eyes: Denies blurry vision ENT: Reports Normal hearing present Cardiovascular: Cardiovascular: Denies chest pain Respiratory: Respiratory: Reports cough, Reports hemoptysis and Denies dyspnea Gastrointestinal: Gastrointestinal: Denies abdominal pain Genitourinary: Genitourinary: Denies hematuria Musculoskeletal: Musculoskeletal: Denies back pain Integumentary/Breasts: Skin/Breast: Denies dry skin Neurologic: Denies Abnormal speech present Psychiatric: Psychiatric: Denies anxiety Endocrine: Endocrine: Denies excessive sweating Hematologic/Lymphatic: Hematologic/Lymphatic: Denies easy bleeding Allergic/Immunologic: Allergic/Immunologic: Denies GI upset with certain foods PMFSH Past Medical History Medical History (Updated 04/07/25 @ 12:48 by Barrett Gu MD) Persistent atrial fibrillation Ischemic cardiomyopathy Biventricular cardiac pacemaker in situ Hx of cardiac pacemaker Other fatigue Sialadenitis Other nonspecific abnormal finding of lung field Numbness in feet High thyroid stimulating hormone (TSH) level Encounter for screening for malignant neoplasm of prostate Elevated CPK Dietary counseling and surveillance (11/12/15) Acute appendicitis with localized peritonitis Surgical History Surgical History H/O heart bypass surgery Family History Family History Sibling Hypertension Patient's sister is in good health Patient's brother is in good health Patient's sister is Mother Patient's mother is Hypertension Family history of malignant neoplasm Father Patient's father is Carcinoma of colon Family history of malignant melanoma Family history of primary malignant neoplasm of liver Social History Social History Smoking packs per day: 1 Smoking cigarettes per day: 20.0 Years smoked: 10 Smoking pack-years: 10.00 Smoking status: Former smoker Tobacco type: cigarettes Second hand tobacco smoke exposure: No Smoking end date: 10/25/77 Alcohol intake: current Drinks per week: 16 Substance use: never Substance use type: does not use Do You Feel Safe in your Home?: Yes Lack of Transportation: No Lack of Food: Never True Current Housing: I Have Housing Concerned About Future Housing: No Difficulty Paying Gas/Electric Bills: No Difficulty Paying for Meds: No Currently Unemployed: No Education: Don't Know Difficulty w/ Childcare or Family Care: No Living arrangements: with family Occupation/Education: 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 Gender identity (if verbalized by the patient): Male Spiritual care concerns: No Meds Home Medications and Allergies Home Medications ?Medication ?Instructions ?Recorded ?Confirmed ?Type aspirin 81 mg tablet,delayed 81 mg PO DAILY 12/11/19 04/06/25 History release (Adult Low Dose Aspirin) cholecalciferol (vitamin D3) 125 5,000 unit PO DAILY 12/11/19 04/06/25 History mcg (5,000 unit) tablet multivitamin (Multiple Vitamins 1 tablet PO DAILY 12/11/19 04/06/25 History tablet) vit C,E,zinc,copper-nhjxf5i 250 1 cap PO DAILY 12/12/19 04/06/25 History mg-lutein 5 mg-zeaxanthin 1 mg capsule (Ocuvite Adult 50 Plus) ginkgo biloba 120 mg tablet 120 mg PO DAILY 03/17/21 04/06/25 History metoprolol tartrate 50 mg tablet 50 mg PO BID #180 tabs 01/14/22 04/06/25 Rx clopidogrel 75 mg tablet 75 mg PO DAILY #90 tabs 08/23/23 04/06/25 Rx empagliflozin 10 mg tablet 10 mg PO .HS 11/29/23 04/06/25 History (Jardiance) cpzmsxvligb-afpjxepvi-ugd C-Mn 500 2 cap PO DAILY 11/29/23 04/06/25 History mg-400 mg capsule sacubitril 97 mg-valsartan 103 mg 1 tablet PO BID 11/29/23 04/06/25 History tablet (Entresto) turmeric root extract 500 mg 600 mg PO DAILY 11/29/23 04/06/25 History capsule magnesium oxide 400 mg PO DAILY 12/20/24 04/06/25 History alirocumab 75 mg/mL subcutaneous 75 mg subcut Q14D 04/06/25 04/06/25 History pen injector (Praluent Pen) magnesium 100 mg tablet 420 mg PO DAILY 04/06/25 04/06/25 History Allergies Allergy/AdvReac Type Severity Reaction Status Date / Time atorvastatin Allergy Severe chest Verified 04/06/25 09:44 pressure rosuvastatin Allergy Severe GI bleed, Verified 04/06/25 09:44 rash amlodipine Allergy Intermediate feet amd Verified 04/06/25 09:44 hands swell carvedilol Allergy Intermediate LBP, Verified 04/06/25 09:44 numbness and tinglin in legs and feet hydrochlorothiazide Allergy Intermediate chest Verified 04/06/25 09:44 pressure metoprolol Allergy Intermediate swelling Verified 04/06/25 09:44 hands and feet spironolactone Allergy Intermediate LBP, Verified 04/06/25 09:44 numbness/tingling in legs and feet ezetimibe Allergy Mild Cough Verified 04/06/25 09:44 lisinopril Allergy Mild cough Verified 04/06/25 09:44 Vital Signs Vital Signs - 24 hr 04/06/25 13:34 04/06/25 13:52 04/06/25 14:20 Temperature 37.5 C 36.9 C Pulse Rate 86 Respiratory Rate 32 H Blood Pressure 129/57 L Pulse Oximetry 96 94 Oxygen Delivery Nasal Cannula Oxygen Flow Rate 3 04/06/25 14:50 04/06/25 15:47 04/06/25 16:00 Temperature 37.1 C 36.7 C Pulse Rate 76 77 Respiratory Rate 32 H 24 H Blood Pressure 116/59 L 123/55 L Pulse Oximetry 94 94 94 Oxygen Delivery Nasal Cannula Oxygen Flow Rate 3 04/06/25 16:00 04/06/25 18:00 04/06/25 19:25 Temperature 38.3 C H Pulse Rate 73 79 Respiratory Rate Blood Pressure Pulse Oximetry Oxygen Delivery Oxygen Flow Rate 04/06/25 19:39 04/06/25 20:00 04/06/25 21:00 Temperature 38.3 C H Pulse Rate 80 89 Respiratory Rate 31 H Blood Pressure 116/49 L Pulse Oximetry 92 90 Oxygen Delivery CPAP Oxygen Flow Rate 04/06/25 21:03 04/06/25 21:58 04/06/25 22:25 Temperature 36.8 C Pulse Rate 99 Respiratory Rate Blood Pressure Pulse Oximetry 90 Oxygen Delivery Autopap Oxygen Flow Rate 04/06/25 23:02 04/06/25 23:53 04/07/25 00:00 Temperature 38.3 C H Pulse Rate 83 Respiratory Rate 20 Blood Pressure 116/47 L Pulse Oximetry 86 L 89 L 90 Oxygen Delivery CPAP CPAP Oxygen Flow Rate 2 3 04/07/25 00:00 04/07/25 02:00 04/07/25 02:03 Temperature Pulse Rate 82 81 Respiratory Rate Blood Pressure Pulse Oximetry 91 Oxygen Delivery Autopap Oxygen Flow Rate 04/07/25 04:00 04/07/25 04:00 04/07/25 04:00 Temperature 37.4 C Pulse Rate 76 77 Respiratory Rate 20 Blood Pressure 132/59 L Pulse Oximetry 92 90 Oxygen Delivery CPAP Oxygen Flow Rate 3 04/07/25 06:00 04/07/25 08:00 04/07/25 09:23 Temperature 37.6 C H Pulse Rate 80 78 85 Respiratory Rate 22 H Blood Pressure 102/87 Pulse Oximetry 92 Oxygen Delivery Oxygen Flow Rate 04/07/25 11:58 Temperature 36.7 C Pulse Rate 75 Respiratory Rate 28 H Blood Pressure 117/48 L Pulse Oximetry 94 Oxygen Delivery Oxygen Flow Rate Exam Narrative: Alert, appears stated age Const: General: comfortable and no acute distress HENMT: Face/Nose/Sinus: Normal nares present Mouth: Yes moist mucous membranes Eyes: General: appearance normal, both eyes and all related structures Sclera: sclerae normal Neck: Neck: supple and no JVD Chest: Other: No reproducible chest wall pain to palpation Resp: Auscultation: rhonchi and diminished lung sounds Cardio: Rate: regular rate Rhythm: abnormal rhythm Heart sounds: Murmur heart sound present GI: Inspection: non-distended GI Palp: Yes Soft to palpation Urinary Catheter: Urinary Catheter: patent and draining and urine dark Skin: General skin exam: normal color Neuro: Speech: normal speech Sensory Exam: normal sensation Extrem: General: normal to inspection Psych: Mental Status: mental status grossly normal Results Labs and Meds 04/07/25 04:17 04/07/25 08:41 Lab results: Cardiac Enzymes 04/06/25 04/06/25 04/07/25 Range/Units 13:22 15:44 08:41 Troponin I 0.029 D 0.036 H* D 0.213 H* (0.000-0.034) ng/mL Coagulation 04/07/25 Range/Units 11:17 PT 17.1 H (11.1-14.7) Seconds APTT 40.9 H (22.3-36.8) Seconds CBC 04/07/25 Range/Units 04:17 WBC 9.2 (4.5-10.0) K/mm3 RBC 3.97 L (4.6-6.20) M/mm3 Hgb 12.6 L (14.0-18.0) g/dL Hct 39.0 L (42.0-52.0) % Plt Count 131 L (150-375) k/mm3 Lymph # (Auto) 0.61 L (0.9-3.2) K/mm3 [place] # (Auto) 0.7 H (0.1-0.6) K/mm3 Eos # (Auto) 0.0 (0-0.3) K/mm3 Baso # (Auto) 0.0 (0.0-0.1) K/mm3 Comprehensive Metabolic Panel 04/06/25 04/07/25 Range/Units 18:38 08:41 Sodium 134 L 134 L (137-145) mmol/L Potassium 4.0 3.7 (3.4-5.0) mmol/L Chloride 102 105 (98-107) mmol/L Carbon Dioxide 21 L 18 L (22-30) mmol/L BUN 25 H 26 H (9-20) mg/dL Creatinine 1.19 1.20 (0.7-1.3) mg/dL Glucose 123 H 113 H (65-110) mg/dL Calcium 8.6 8.3 L (8.4-10.2) mg/dL Intake and Output 04/06/25 04/07/25 04/07/25 23:59 07:59 15:59 Intake Total 550 1370 120 Output Total 450 900 Balance 100 470 120 Intake: IV 970 Sodium Chloride 0.9% IV 1,000 970 ml @ 100 mls/hr IV CONT .Q10H [facility] Rx#:[id number] Oral 550 400 120 Output: Urine 450 900 Patient Weight 04/07/25 23:59 Weight 99.3 kg EKG shows ventricular pacing. This EKG is personally reviewed and interpreted
[2025-04-07 13:12] LABS: MRSA (PCR) NOT DETECTED (NOT DETECTE)
[2025-04-07] MEDS: IPRATROPIUM 0.5 MG/ALBUTEROL SULFATE 2.5 MG AMPUL.NEB 3 ML INHALATION ×2 (13:45→20:31)
[2025-04-07] MEDS: EMPAGLIFLOZIN 10 MG TABLET PO (20:04)
[2025-04-08] VITALS (32 sets, daily range): BP systolic 109–160; BP diastolic 48–84; PULSE 73–101; RESP 16–20; TEMP 36.5–38.2; O2SAT 91–98
[2025-04-08] MEDS: SODIUM CHLORIDE 0.9% IV 1,000 ML 100 ML IV CONT ×2 (00:24→09:30)
[2025-04-08] MEDS: guaiFENesin/DEXTROMETHORPHAN 10 ML UDC PO ×6 (00:24→20:56)
[2025-04-08] MEDS: IPRATROPIUM 0.5 MG/ALBUTEROL SULFATE 2.5 MG AMPUL.NEB 3 ML INHALATION ×4 (01:53→20:27)
[2025-04-08] MEDS: ACETAMINOPHEN 325 MG TABLET 650 MG PO ×2 (02:16→12:45)
[2025-04-08 06:36] LABS: Toxigenic C. Diff NEGATIVE (NEGATIVE)
[2025-04-08 08:28] LABS: Basophils Percent Auto 0.3 % (0.2-1.2); Hematocrit 38.3 % (42.0-52.0); Hemoglobin 12.7 g/dL (14.0-18.0); Immature Granulocyte Absolute 0.04 K/mm3 (0.00-0.031); Immature Granulocyte Percent A 0.5 % (0-0.5); Lymphocytes Absolute Auto 0.78 K/mm3 (0.9-3.2); Lymphocytes Percent Auto 10.4 % (18.3-44.2); Mean Corpuscular HGB Conc 33.2 g/dl (32-36); Mean Corpuscular Hemoglobin 31.9 pg (26-34); Mean Corpuscular Volume 96.2 fl (80-100); Mean Platelet Volume 9.8 fl (7.4-10.4); Monocytes Absolute Auto 0.8 K/mm3 (0.1-0.6); Monocytes Percent Auto 10.2 % (2.6-8.5); Neutrophils Absolute Auto 5.9 K/mm3 (1.3-6.7); Neutrophils Percent Auto 78.6 % (45.5-73.1); Platelet Count Result 144 k/mm3 (150-375); Red Blood Count 3.98 M/mm3 (4.6-6.20); Red Cell Distribution Width 14.6 % (11.5-14.5); White Blood Count 7.5 K/mm3 (4.5-10.0)
[2025-04-08 08:40] LABS: Anion Gap 11 mmol/L (4-12); Blood Urea Nitrogen 24 mg/dL (9-20); Calcium 8.4 mg/dL (8.4-10.2); Carbon Dioxide 20 mmol/L (22-30); Chloride 106 mmol/L (98-107); Estimated CRCL calculation 57 ml/min; Estimated Glomerular Filt Rate > 60; Glucose 131 mg/dL (65-110); Potassium 3.9 mmol/L (3.4-5.0); Sodium 137 mmol/L (137-145)
[2025-04-08 08:50] LABS: Troponin I 0.127 ng/mL (0.000-0.034)
[2025-04-08] MEDS: METOPROLOL TARTRATE 50 MG TAB PO ×2 (09:34→20:57)
[2025-04-08] MEDS: DOXYCYCLINE HYCLATE 100 MG TABLET PO (09:34)
[2025-04-08] MEDS: ENOXAPARIN 40 MG/0.4 ML SYRINGE SUB-Q (09:34)
[2025-04-08] MEDS: SACUBITRIL/VALSARTAN 97-103 MG TABLET 1 TAB PO ×2 (09:34→18:03)
[2025-04-08] MEDS: ASPIRIN 81 MG ENTERIC TABLET PO (09:34)
[2025-04-08] MEDS: CLOPIDOGREL BISULFATE 75 MG TABLET PO (09:34)
--- NOTE | 2025-04-08 10:17 | PM.PNCARD ---
Progress Note: A&P Assessment and Plan (1) Elevated troponin: Code(s): R79.89 - Other specified abnormal findings of blood chemistry Status: Acute Assessment and Plan: Has had some minor bump in troponins but I do not think they represent acute plaque rupture. He is sick with pneumonia and possible urinary tract infection. He had fevers and chills and generalized weakness and an x-ray which is consistent with pneumonia. Troponins are now down trending and most recent troponin 0.12 down from 0.2. No further troponin is needed unless there is a change in clinical status. No further cardiac workup needed as an inpatient. Cardiology to sign off (2) CAD (coronary artery disease): Code(s): I25.10 - Atherosclerotic heart disease of [place] coronary artery without angina pectoris Status: Acute Assessment and Plan: History of CABG. Continue aspirin, clopidogrel and his other usual cardiac regimen including metoprolol, Entresto (3) Essential (primary) hypertension: Code(s): I10 - Essential (primary) hypertension Status: Acute Assessment and Plan: At goal (4) COLBY (acute kidney injury): Code(s): N17.9 - Acute kidney failure, unspecified Status: Acute Assessment and Plan: Receiving IV fluids. Caution as to not cause iatrogenic volume overload. As he is taking p.o., Will reduce IV fluids to 50 cc/hour. Likely DC tomorrow or later today (5) Pneumonia: Qualifiers: Laterality: unspecified laterality Lung location: unspecified part of lung Pneumonia type: due to unspecified organism Qualified Code(s): J18.9 - Pneumonia, unspecified organism Code(s): J18.9 - Pneumonia, unspecified organism Status: Acute Assessment and Plan: On antibiotics per hospitalist (6) Biventricular cardiac pacemaker in situ: Code(s): Z95.0 - Presence of cardiac pacemaker Status: Acute Assessment and Plan: Functioning normally (7) Ischemic cardiomyopathy: Code(s): I25.5 - Ischemic cardiomyopathy Status: Acute Assessment and Plan: Continue Entresto, metoprolol, Jardiance (8) Persistent atrial fibrillation: Code(s): I48.19 - Other persistent atrial fibrillation Status: Acute Assessment and Plan: Patient had previously been prescribed anticoagulation form of Eliquis but he found to be unaffordable and after having an extensive conversation with him in the past he refuses. He wishes to remain on aspirin and clopidogrel. Subjective Date/time seen: 04/08/25 10:17 Interval history: 74-year-old admitted for weakness. Found to have a pneumonia and acute kidney injury. Troponins are minimally elevated. They are down trending. Follow-up note/date of service 04/08/2025: He is feeling better today. Feels stronger. No chest pain. Less short of breath. No swelling. Review of Systems Review of Systems: All systems reviewed & are unremarkable except as noted in HPI and below Constitutional: Constitutional: Reports body ache(s), Reports chills, Denies excessive sweating, Reports fatigue, Reports lethargy and Reports weakness Eyes: Eyes: Denies blurry vision ENT: Reports Normal hearing present Cardiovascular: Cardiovascular: Denies chest pain and Denies dyspnea Respiratory: Respiratory: Reports cough, Reports hemoptysis and Denies dyspnea Gastrointestinal: Gastrointestinal: Denies abdominal pain Genitourinary: Genitourinary: Denies hematuria Musculoskeletal: Musculoskeletal: Denies back pain Integumentary/Breasts: Skin/Breast: Denies dry skin Neurologic: Reports Normal hearing present, Denies Abnormal speech present and Reports weakness Psychiatric: Psychiatric: Denies anxiety Endocrine: Endocrine: Denies excessive sweating and Reports fatigue Hematologic/Lymphatic: Hematologic/Lymphatic: Denies easy bleeding Allergic/Immunologic: Allergic/Immunologic: Denies GI upset with certain foods Exam Narrative: Alert, appears stated age Const: General: comfortable and no acute distress HENMT: Face/Nose/Sinus: Normal nares present Mouth: Yes moist mucous membranes Eyes: General: appearance normal, both eyes and all related structures Sclera: sclerae normal Neck: Neck: supple and no JVD Chest: Other: No reproducible chest wall pain to palpation Resp: Effort & Inspection: normal respiratory effort Auscultation: crackles Cardio: Rate: regular rate Rhythm: abnormal rhythm Heart sounds: Murmur heart sound present GI: Inspection: non-distended Urinary Catheter: Urinary Catheter: patent and draining and urine dark Skin: General skin exam: normal color Neuro: Cranial nerves: Yes Normal hearing present Speech: normal speech and No Abnormal speech present Sensory Exam: normal sensation Extrem: General: normal to inspection Psych: Mental Status: mental status grossly normal Objective Data Vital Signs Vital Signs: Vital Signs - 24 hr 04/07/25 11:58 04/07/25 12:00 04/07/25 12:00 Temperature 36.7 C Pulse Rate 75 83 Respiratory Rate 28 H Blood Pressure 117/48 L Pulse Oximetry 94 92 Oxygen Delivery Nasal Cannula Oxygen Flow Rate 2 Fraction of Inspired Oxygen 04/07/25 13:51 04/07/25 14:00 04/07/25 16:00 Temperature 37.3 C Pulse Rate 88 77 77 Respiratory Rate 20 28 H Blood Pressure 116/52 L Pulse Oximetry 92 Oxygen Delivery Oxygen Flow Rate Fraction of Inspired Oxygen 04/07/25 16:00 04/07/25 16:00 04/07/25 18:00 Temperature Pulse Rate 95 83 Respiratory Rate Blood Pressure Pulse Oximetry 91 Oxygen Delivery Nasal Cannula Oxygen Flow Rate 2 Fraction of Inspired Oxygen 04/07/25 20:00 04/07/25 20:00 04/07/25 20:00 Temperature 36.6 C Pulse Rate 84 86 Respiratory Rate 20 Blood Pressure 140/58 L Pulse Oximetry 90 92 Oxygen Delivery Nasal Cannula Oxygen Flow Rate 2 Fraction of Inspired Oxygen 04/07/25 20:04 04/07/25 20:31 04/07/25 20:34 Temperature Pulse Rate 89 85 Respiratory Rate 20 Blood Pressure Pulse Oximetry 93 Oxygen Delivery Autopap Oxygen Flow Rate Fraction of Inspired Oxygen 04/07/25 20:43 04/07/25 22:00 04/07/25 23:52 Temperature 37.1 C Pulse Rate 85 80 77 Respiratory Rate 20 20 Blood Pressure 132/62 Pulse Oximetry 92 Oxygen Delivery Oxygen Flow Rate Fraction of Inspired Oxygen 04/08/25 00:00 04/08/25 00:00 04/08/25 01:55 Temperature Pulse Rate 85 83 Respiratory Rate 20 Blood Pressure Pulse Oximetry 92 Oxygen Delivery Nasal Cannula Oxygen Flow Rate 3 Fraction of Inspired Oxygen 04/08/25 02:00 04/08/25 02:01 04/08/25 02:03 Temperature Pulse Rate 83 89 Respiratory Rate 20 Blood Pressure Pulse Oximetry Oxygen Delivery Autopap Oxygen Flow Rate Fraction of Inspired Oxygen 04/08/25 02:16 04/08/25 03:23 04/08/25 04:00 Temperature 37.8 C H 37.0 C Pulse Rate 73 Respiratory Rate Blood Pressure Pulse Oximetry Oxygen Delivery Oxygen Flow Rate Fraction of Inspired Oxygen 04/08/25 04:00 04/08/25 04:00 04/08/25 06:00 Temperature Pulse Rate 76 80 Respiratory Rate 20 Blood Pressure 160/84 H Pulse Oximetry 95 92 Oxygen Delivery Nasal Cannula Oxygen Flow Rate 3 Fraction of Inspired Oxygen 04/08/25 07:31 04/08/25 08:00 04/08/25 08:45 Temperature 36.9 C Pulse Rate 74 75 Respiratory Rate 16 Blood Pressure 128/80 Pulse Oximetry 98 94 Oxygen Delivery Room Air Oxygen Flow Rate Fraction of Inspired Oxygen 04/08/25 09:05 04/08/25 09:05 04/08/25 09:13 Temperature Pulse Rate 78 78 Respiratory Rate 20 20 Blood Pressure Pulse Oximetry 96 Oxygen Delivery Room Air Oxygen Flow Rate Fraction of Inspired Oxygen 21 04/08/25 09:34 Temperature Pulse Rate 81 Respiratory Rate Blood Pressure Pulse Oximetry Oxygen Delivery Oxygen Flow Rate Fraction of Inspired Oxygen Intake/Output Intake/Output: Intake & Output 04/05/25 04/06/25 04/07/25 04/08/25 23:59 23:59 23:59 23:59 Intake Total 1850 3435 2593.3 Output Total 450 1500 1350 Balance 1400 1935 1243.3 Meds/Results Medications: Active Medications Generic Name Dose Route Start Last Admin Trade Name Freq PRN Reason Stop Dose Admin Acetaminophen 650 mg 04/06/25 12:17 04/08/25 02:16 Acetaminophen 325 Mg Tablet PO 650 mg Q4H PRN Administration Mild Pain (1-3) or Fever Albuterol/Ipratropium 3 ml 04/07/25 14:00 04/08/25 09:05 Ipratropium 0.5 Mg/Albuterol Sulfate 2.5 Mg Ampul.Neb 3 Ml INHALATION 3 ml Q6HRT MAYRA Administration Aspirin 81 mg 04/07/25 09:00 04/08/25 09:34 Aspirin 81 Mg Enteric Tablet PO 81 mg DAILY MAYRA Administration Clopidogrel Bisulfate 75 mg 04/07/25 09:00 04/08/25 09:34 Clopidogrel Bisulfate 75 Mg Tablet PO 75 mg DAILY MAYRA Administration Dextrose 12.5 gm 04/06/25 12:20 Dextrose 50% 25 Gm/50 Ml Syringe IV PUSH PRN PRN Hypoglycemia Protocol Doxycycline Hyclate 100 mg 04/07/25 09:00 04/08/25 09:34 Doxycycline Hyclate 100 Mg Tablet PO 100 mg Q12HR MAYRA Administration Empagliflozin 10 mg 04/06/25 21:00 04/07/25 20:04 Empagliflozin 10 Mg Tablet PO 10 mg HS MAYRA Administration Enoxaparin Sodium 40 mg 04/07/25 09:00 04/08/25 09:34 Enoxaparin 40 Mg/0.4 Ml Syringe SUB-Q 40 mg DAILY MAYRA Administration Glucagon 1 mg 04/06/25 12:20 Glucagon For Inj 1 Mg Vial IM PRN PRN Hypoglycemia Protocol Glucose 15 gm 04/06/25 12:20 Glucose Oral Gel 15 Gm Of Glucse In 37.5 Gm Tube PO PRN PRN Hypoglycemia Protocol Guaifenesin/Dextromethorphan 10 ml 04/06/25 23:30 04/08/25 09:35 Guaifenesin/Dextromethorphan 10 Ml Udc PO 10 ml Q4HR MAYRA Administration Ceftriaxone Sodium 1 gm in 50 mls @ 100 mls/hr 04/07/25 09:00 04/08/25 09:31 Rocephin 1 Gm/Ns 50 Ml IVPB 100 mls/hr Q24H MAYRA Administration Dextrose 1,000 mls @ 100 mls/hr 04/06/25 12:20 Dextrose 5% 1,000 Ml IVPB PRN PRN Hypoglycemia Protocol Sodium Chloride 1,000 mls @ 100 mls/hr 04/06/25 18:25 04/08/25 09:30 Normal Saline Iv IV CONT 100 mls/hr .Q10H MAYRA Administration Metoprolol Tartrate 50 mg 04/07/25 09:00 04/08/25 09:34 Metoprolol Tartrate 50 Mg Tab PO 50 mg Q12HR MAYRA Administration Ondansetron HCl 4 mg 04/06/25 12:17 Ondansetron Inj 4 Mg/2 Ml Vial IV PUSH Q4H PRN Nausea Sacubitril/Valsartan 1 tab 04/07/25 09:00 04/08/25 09:34 Sacubitril/Valsartan 97-103 Mg Tablet PO 1 tab BID MAYRA Administration Radiology Results: ITS Impressions Chest X-Ray 04/06/25 10:48 Impression: 1: Large left upper lobe mass, consistent with bronchogenic carcinoma until proven otherwise. Recommend correlation with CT chest. Chest CTA 04/06/25 11:26 IMPRESSION: 1. No pulmonary embolism. 2. Consolidation the left upper lobe and lingula consistent with pneumonia. 3. Cardiomegaly. 4. Mild likely reactive mediastinal lymphadenopathy. Labs Labs: Laboratory Results - last 24 hr 04/07/25 04/07/25 04/07/25 08:41 11:17 11:43 WBC RBC Hgb Hct MCV MCH MCHC RDW Plt Count MPV Immature Gran % (Auto) Neut % (Auto) Lymph % (Auto) [place] % (Auto) Eos % (Auto) Baso % (Auto) Lymph # (Auto) [place] # (Auto) Eos # (Auto) Baso # (Auto) Abs Immat Gran (auto) Absolute Neuts (auto) Absolute Nucleated RBC Nucleated RBC % PT 17.1 H INR 1.4 APTT 40.9 H Sodium 134 L Potassium 3.7 Chloride 105 Carbon Dioxide 18 L Anion Gap 11 BUN 26 H Creatinine 1.20 Estim Creat Clear Calc 54 Estimated GFR 59 Glucose 113 H Calcium 8.3 L Total Creatine Kinase 423 H Troponin I Nasal MRSA (PCR) Not detected C. difficile (PCR) 04/08/25 04/08/25 05:35 08:24 WBC 7.5 RBC 3.98 L Hgb 12.7 L Hct 38.3 L MCV 96.2 MCH 31.9 MCHC 33.2 RDW 14.6 H Plt Count 144 L MPV 9.8 Immature Gran % (Auto) 0.5 Neut % (Auto) 78.6 H Lymph % (Auto) 10.4 L [place] % (Auto) 10.2 H Eos % (Auto) 0.0 Baso % (Auto) 0.3 Lymph # (Auto) 0.78 L [place] # (Auto) 0.8 H Eos # (Auto) 0.0 Baso # (Auto) 0.0 Abs Immat Gran (auto) 0.04 H Absolute Neuts (auto) 5.9 Absolute Nucleated RBC 0.000 Nucleated RBC % 0.0 PT INR APTT Sodium 137 Potassium 3.9 Chloride 106 Carbon Dioxide 20 L Anion Gap 11 BUN 24 H Creatinine 1.14 Estim Creat Clear Calc 57 Estimated GFR > 60 Glucose 131 H Calcium 8.4 Total Creatine Kinase Troponin I 0.127 H* Nasal MRSA (PCR) C. difficile (PCR) Negative
--- NOTE | 2025-04-08 15:15 | P.PNIM_ITS ---
Progress Note: A&P Assessment and Plan (1) Pneumonia: Qualifiers: Laterality: unspecified laterality Lung location: unspecified part of lung Pneumonia type: due to unspecified organism Qualified Code(s): J18.9 - Pneumonia, unspecified organism Code(s): J18.9 - Pneumonia, unspecified organism Status: Acute Assessment and Plan: Chest x-ray read with lung mass however CT shows pneumonia Started on Augmentin Status post ceftriaxone and doxycycline guaifenesin Incentive spirometer (2) Acute hypoxic respiratory failure: Code(s): J96.01 - Acute respiratory failure with hypoxia Status: Acute Assessment and Plan: Secondary to above Wean oxygen as able CPAP at night (3) Elevated troponin: Code(s): R79.89 - Other specified abnormal findings of blood chemistry Status: Acute Assessment and Plan: Trend troponins EKG p.r.n. for chest pain Nitro p.r.n. for chest pain Aspirin given Holding off on heparin drip Cardiology consulted and no acute intervention (4) Essential (primary) hypertension: Code(s): I10 - Essential (primary) hypertension Status: Acute Assessment and Plan: Continue Entresto (5) CAD (coronary artery disease): Code(s): I25.10 - Atherosclerotic heart disease of [place] coronary artery without angina pectoris Status: Acute Assessment and Plan: Continue Entresto, metoprolol, Jardiance, and Plavix Subjective Date/time seen: 04/08/25 15:15 Interval history: Patient reports of tremor which has been recently aggravated . Consulted Neurology. De-escalated antibiotic to Augmentin. Review of Systems Review of Systems: 12 systems were reviewed and are negativ e except for as per HPI. Exam Narrative: General: well appearing, appears stated age. HEENT: normocephalic, atraumatic. Mucous membranes moist. EOMI, PERRLA, bilateral sclera anicteric, no conjunctival injection. Neck supple without JVD, lymphadenopathy, or bruit. Respiratory: Diminished to ascultation bilaterally. No rales/rhonic/wheezes. Cardiovascular: Regular rate and rhythm, normal S1-S2 upon ascultation. No murmurs, rubs, or clicks. PMI is nondisplaced, capillary refill less than 3 second. Abdomen: Soft, round, no pulsatile masses, nondistended and nontender. No rebound, no guarding. No CVA tenderness, no hepatosplenomegaly. Bowel sounds present to all four quadrants. No high pitch or tinkling sounds, resonant to percussion. Extremities: No cyanosis, clubbing, or edema present. Pulses are palpable 2/2. Active ROM to all four extremities. Neuro: Alert and orientated x 4. PERRLA. Cranial nerves 2-12 intact without focal deficit. Skin: Warm, dry, and intact, without rash, erythema, or lesion. Psych: pleasant, cooperative, normal speech, normal affect, no hallucinations, no dysarthia Home CPAP on 2 L oxygen Objective Data Vital Signs Vital Signs: Vital Signs - 24 hr 04/07/25 16:00 04/07/25 16:00 04/07/25 16:00 Temperature 99.1 F Pulse Rate 77 95 Respiratory Rate 28 H Blood Pressure 116/52 L Pulse Oximetry 92 91 Oxygen Delivery Nasal Cannula Oxygen Flow Rate 2 Fraction of Inspired Oxygen 04/07/25 18:00 04/07/25 20:00 04/07/25 20:00 Temperature 98 F Pulse Rate 83 84 Respiratory Rate 20 Blood Pressure 140/58 L Pulse Oximetry 90 92 Oxygen Delivery Nasal Cannula Oxygen Flow Rate 2 Fraction of Inspired Oxygen 04/07/25 20:00 04/07/25 20:04 04/07/25 20:31 Temperature Pulse Rate 86 89 85 Respiratory Rate 20 Blood Pressure Pulse Oximetry Oxygen Delivery Oxygen Flow Rate Fraction of Inspired Oxygen 04/07/25 20:34 04/07/25 20:43 04/07/25 22:00 Temperature Pulse Rate 85 80 Respiratory Rate 20 Blood Pressure Pulse Oximetry 93 Oxygen Delivery Autopap Oxygen Flow Rate Fraction of Inspired Oxygen 04/07/25 23:52 04/08/25 00:00 04/08/25 00:00 Temperature 98.8 F Pulse Rate 77 85 Respiratory Rate 20 Blood Pressure 132/62 Pulse Oximetry 92 92 Oxygen Delivery Nasal Cannula Oxygen Flow Rate 3 Fraction of Inspired Oxygen 04/08/25 01:55 04/08/25 02:00 04/08/25 02:01 Temperature Pulse Rate 83 83 89 Respiratory Rate 20 20 Blood Pressure Pulse Oximetry Oxygen Delivery Oxygen Flow Rate Fraction of Inspired Oxygen 04/08/25 02:03 04/08/25 02:16 04/08/25 03:23 Temperature 100.1 F H 98.6 F Pulse Rate Respiratory Rate Blood Pressure Pulse Oximetry Oxygen Delivery Autopap Oxygen Flow Rate Fraction of Inspired Oxygen 04/08/25 04:00 04/08/25 04:00 04/08/25 04:00 Temperature Pulse Rate 73 76 Respiratory Rate 20 Blood Pressure 160/84 H Pulse Oximetry 95 92 Oxygen Delivery Nasal Cannula Oxygen Flow Rate 3 Fraction of Inspired Oxygen 04/08/25 06:00 04/08/25 07:31 04/08/25 08:00 Temperature 98.5 F Pulse Rate 80 74 75 Respiratory Rate 16 Blood Pressure 128/80 Pulse Oximetry 98 Oxygen Delivery Oxygen Flow Rate Fraction of Inspired Oxygen 04/08/25 08:45 04/08/25 09:05 04/08/25 09:05 Temperature Pulse Rate 78 Respiratory Rate 20 Blood Pressure Pulse Oximetry 94 96 Oxygen Delivery Room Air Room Air Oxygen Flow Rate Fraction of Inspired Oxygen 21 04/08/25 09:13 04/08/25 09:34 04/08/25 10:00 Temperature Pulse Rate 78 81 86 Respiratory Rate 20 Blood Pressure Pulse Oximetry Oxygen Delivery Oxygen Flow Rate Fraction of Inspired Oxygen 04/08/25 11:25 04/08/25 11:45 04/08/25 12:00 Temperature 98.8 F 99.9 F H Pulse Rate 82 101 H Respiratory Rate 16 Blood Pressure 109/48 L Pulse Oximetry 93 Oxygen Delivery Oxygen Flow Rate Fraction of Inspired Oxygen 04/08/25 12:42 04/08/25 12:45 04/08/25 13:36 Temperature 100.7 F H 100.7 F H 100.5 F H Pulse Rate Respiratory Rate Blood Pressure Pulse Oximetry Oxygen Delivery Oxygen Flow Rate Fraction of Inspired Oxygen 04/08/25 14:43 04/08/25 14:43 04/08/25 14:48 Temperature Pulse Rate 82 86 Respiratory Rate 20 20 Blood Pressure Pulse Oximetry 93 Oxygen Delivery Room Air Oxygen Flow Rate Fraction of Inspired Oxygen 21 Intake/Output Intake/Output: Intake & Output 04/05/25 04/06/25 04/07/25 04/08/25 23:59 23:59 23:59 23:59 Intake Total 1850 3435 3246.6 Output Total 450 1500 1350 Balance 1400 1935 1896.6 Meds/Results Medications: Active Medications Generic Name Dose Route Start Last Admin Trade Name Freq PRN Reason Stop Dose Admin Acetaminophen 650 mg 04/06/25 12:17 04/08/25 12:45 Acetaminophen 325 Mg Tablet PO 650 mg Q4H PRN Administration Mild Pain (1-3) or Fever Albuterol/Ipratropium 3 ml 04/07/25 14:00 04/08/25 14:43 Ipratropium 0.5 Mg/Albuterol Sulfate 2.5 Mg Ampul.Neb 3 Ml INHALATION 3 ml Q6HRT MAYRA Administration Aspirin 81 mg 04/07/25 09:00 04/08/25 09:34 Aspirin 81 Mg Enteric Tablet PO 81 mg DAILY MAYRA Administration Clopidogrel Bisulfate 75 mg 04/07/25 09:00 04/08/25 09:34 Clopidogrel Bisulfate 75 Mg Tablet PO 75 mg DAILY MAYRA Administration Dextrose 12.5 gm 04/06/25 12:20 Dextrose 50% 25 Gm/50 Ml Syringe IV PUSH PRN PRN Hypoglycemia Protocol Doxycycline Hyclate 100 mg 04/07/25 09:00 04/08/25 09:34 Doxycycline Hyclate 100 Mg Tablet PO 100 mg Q12HR MAYRA Administration Empagliflozin 10 mg 04/06/25 21:00 04/07/25 20:04 Empagliflozin 10 Mg Tablet PO 10 mg HS MAYRA Administration Enoxaparin Sodium 40 mg 04/07/25 09:00 04/08/25 09:34 Enoxaparin 40 Mg/0.4 Ml Syringe SUB-Q 40 mg DAILY MAYRA Administration Glucagon 1 mg 04/06/25 12:20 Glucagon For Inj 1 Mg Vial IM PRN PRN Hypoglycemia Protocol Glucose 15 gm 04/06/25 12:20 Glucose Oral Gel 15 Gm Of Glucse In 37.5 Gm Tube PO PRN PRN Hypoglycemia Protocol Guaifenesin/Dextromethorphan 10 ml 04/06/25 23:30 04/08/25 12:34 Guaifenesin/Dextromethorphan 10 Ml Udc PO 10 ml Q4HR MAYRA Administration Ceftriaxone Sodium 1 gm in 50 mls @ 100 mls/hr 04/07/25 09:00 04/08/25 09:31 Rocephin 1 Gm/Ns 50 Ml IVPB 100 mls/hr Q24H MAYRA Administration Dextrose 1,000 mls @ 100 mls/hr 04/06/25 12:20 Dextrose 5% 1,000 Ml IVPB PRN PRN Hypoglycemia Protocol Sodium Chloride 1,000 mls @ 50 mls/hr 04/06/25 18:25 04/08/25 10:32 Normal Saline Iv IV CONT 50 mls/hr .Q20H MAYRA Infusion Metoprolol Tartrate 50 mg 04/07/25 09:00 04/08/25 09:34 Metoprolol Tartrate 50 Mg Tab PO 50 mg Q12HR MAYRA Administration Ondansetron HCl 4 mg 04/06/25 12:17 Ondansetron Inj 4 Mg/2 Ml Vial IV PUSH Q4H PRN Nausea Sacubitril/Valsartan 1 tab 04/07/25 09:00 04/08/25 09:34 Sacubitril/Valsartan 97-103 Mg Tablet PO 1 tab BID MAYRA Administration Radiology Results: ITS Impressions Chest X-Ray 04/06/25 10:48 Impression: 1: Large left upper lobe mass, consistent with bronchogenic carcinoma until proven otherwise. Recommend correlation with CT chest. Chest CTA 04/06/25 11:26 IMPRESSION: 1. No pulmonary embolism. 2. Consolidation the left upper lobe and lingula consistent with pneumonia. 3. Cardiomegaly. 4. Mild likely reactive mediastinal lymphadenopathy. Labs Labs: Laboratory Results - last 24 hr 04/08/25 04/08/25 05:35 08:24 WBC 7.5 RBC 3.98 L Hgb 12.7 L Hct 38.3 L MCV 96.2 MCH 31.9 MCHC 33.2 RDW 14.6 H Plt Count 144 L MPV 9.8 Immature Gran % (Auto) 0.5 Neut % (Auto) 78.6 H Lymph % (Auto) 10.4 L [place] % (Auto) 10.2 H Eos % (Auto) 0.0 Baso % (Auto) 0.3 Lymph # (Auto) 0.78 L [place] # (Auto) 0.8 H Eos # (Auto) 0.0 Baso # (Auto) 0.0 Abs Immat Gran (auto) 0.04 H Absolute Neuts (auto) 5.9 Absolute Nucleated RBC 0.000 Nucleated RBC % 0.0 Sodium 137 Potassium 3.9 Chloride 106 Carbon Dioxide 20 L Anion Gap 11 BUN 24 H Creatinine 1.14 Estim Creat Clear Calc 57 Estimated GFR > 60 Glucose 131 H Calcium 8.4 Troponin I 0.127 H* C. difficile (PCR) Negative Quality VTE Prophylaxis VTE prophylaxis: mechanical ordered and pharmacologic ordered Hospitalist MIPS Advance Care Plan I have confirmed that the patient's Advanced Care Plan is present, code status is documented, or surrogate decision maker is listed in patient medical record.: Yes Medication Reconciliation I have utilized all available resources to obtain, update and review the patients current medications (includes all prescriptions, OTC, herbals, cannabis, and nutritional supplements).: Yes
[2025-04-08] MEDS: EMPAGLIFLOZIN 10 MG TABLET PO (20:56)
[2025-04-08] MEDS: AMOXICILLIN/CLAVULANATE K 875-125 MG TAB 1 TABLET PO (20:56)
[2025-04-09] VITALS (13 sets, daily range): BP systolic 120–122; BP diastolic 53–64; PULSE 74–112; RESP 19–20; TEMP 36.4–37.2; O2SAT 90–93
[2025-04-09] MEDS: guaiFENesin/DEXTROMETHORPHAN 10 ML UDC PO ×4 (01:41→12:15)
[2025-04-09] MEDS: IPRATROPIUM 0.5 MG/ALBUTEROL SULFATE 2.5 MG AMPUL.NEB 3 ML INHALATION ×3 (01:49→13:41)
[2025-04-09] MEDS: SODIUM CHLORIDE 0.9% IV 1,000 ML 50 ML IV CONT (02:53)
[2025-04-09 05:02] LABS: Hematocrit 36.6 % (42.0-52.0); Hemoglobin 12.1 g/dL (14.0-18.0); Mean Corpuscular HGB Conc 33.1 g/dl (32-36); Mean Corpuscular Hemoglobin 31.6 pg (26-34); Mean Corpuscular Volume 95.6 fl (80-100); Mean Platelet Volume 10.1 fl (7.4-10.4); Platelet Count Result 152 k/mm3 (150-375); Red Blood Count 3.83 M/mm3 (4.6-6.20); Red Cell Distribution Width 14.9 % (11.5-14.5)
[2025-04-09 05:13] LABS: Alanine Aminotransferase 46 U/L (6-50); Albumin Level 3.1 g/dL (3.5-5.1); Alkaline Phosphatase 151 U/L (38-126); Anion Gap 10 mmol/L (4-12); Aspartate Amino Transferase 65 U/L (17-59); Bilirubin,Total 0.7 mg/dL (0.2-1.3); Blood Urea Nitrogen 23 mg/dL (9-20); Calcium 8.6 mg/dL (8.4-10.2); Carbon Dioxide 17 mmol/L (22-30); Chloride 110 mmol/L (98-107); Estimated CRCL calculation 67 ml/min; Estimated Glomerular Filt Rate > 60; Glucose 120 mg/dL (65-110); Potassium 3.4 mmol/L (3.4-5.0); Sodium 137 mmol/L (137-145); Total Protein 6.3 g/dL (6.3-8.2)
[2025-04-09] MEDS: ASPIRIN 81 MG ENTERIC TABLET PO (09:35)
[2025-04-09] MEDS: SACUBITRIL/VALSARTAN 97-103 MG TABLET 1 TAB PO (09:35)
[2025-04-09] MEDS: METOPROLOL TARTRATE 50 MG TAB PO (09:35)
[2025-04-09] MEDS: AMOXICILLIN/CLAVULANATE K 875-125 MG TAB 1 TABLET PO (09:35)
[2025-04-09] MEDS: CLOPIDOGREL BISULFATE 75 MG TABLET PO (09:35)
[2025-04-09] MEDS: ENOXAPARIN 40 MG/0.4 ML SYRINGE SUB-Q (09:37)
--- NOTE | 2025-04-09 11:35 | P.CONNEU_ITS ---
Assessment and Plan Assessment and plan (1) Benign essential tremor: Code(s): G25.0 - Essential tremor Status: Acute Assessment and Plan: The tremor appear minimal and do not seem to cause any functional impairment and the patient agrees with the same. At times these appear more prominent as he is quite well known that with [employer] [employer] stimulation or sedatives the symptoms can fluctuate. I have advised him that if he has any problem on ongoing basis are glad to see him for follow-up in my office and I have given my phone number for the same. I do not find any evidence for Parkinson's disease. Also there is no family history of essential tremor per I explained to her about the benign nature of his condition. I also did not identify any significant concurrent medications or metabolic conditions to account for the tremor at this time. However should there be any further concern add glad to address them. (2) CAD (coronary artery disease): Code(s): I25.10 - Atherosclerotic heart disease of [place] coronary artery without angina pectoris Status: Acute (3) Ischemic cardiomyopathy: Code(s): I25.5 - Ischemic cardiomyopathy Status: Acute (4) Essential (primary) hypertension: Code(s): I10 - Essential (primary) hypertension Status: Acute (5) Biventricular cardiac pacemaker in situ: Code(s): Z95.0 - Presence of cardiac pacemaker Status: Acute (6) Persistent atrial fibrillation: Code(s): I48.19 - Other persistent atrial fibrillation Status: Acute (7) Hyperglycemia: Code(s): R73.9 - Hyperglycemia, unspecified Status: Acute (8) Pneumonia: Qualifiers: Laterality: unspecified laterality Lung location: unspecified part of lung Pneumonia type: due to unspecified organism Qualified Code(s): J18.9 - Pneumonia, unspecified organism Code(s): J18.9 - Pneumonia, unspecified organism Status: Acute (9) Obstructive sleep apnea (adult) (pediatric): Code(s): G47.33 - Obstructive sleep apnea (adult) (pediatric) Status: Acute Plan As discussed above in the tremors continue to cause any functional impairment, I shall be glad to see him for follow-up. Consult date: 04/09/25 HPI: Ketty Young is a 74 year old male With history of cardiac disease and cardiac pacemaker in place and history of coronary were passed grafting and obstructive sleep apnea syndrome on CPAP was admitted to the hospital with generalized weakness and was found to have a pneumonia for which he is being treated. His urinalysis was also abnormal and is suspected to have possible urinary tract infection. Troponin level was slightly high which has now improved and he has been cleared by the Cardiology. he was noted to have tremor for which she is evaluated by neurology service. The patient states that he has not had any ongoing significant problem with his hand but his pointed out that at times he does seem to have some tremor. When he was having fever or chills the tremor appeared more prominent. He denies any significant difficulty with walking imbalance or activities of daily living in general prior to the onset of current illness. There is no family history of tremor or Parkinson's disease. Current list of medications were reviewed. Other lab data were also reviewed. He was seen by Dr. Dumont in 2021 for neurologic evaluation in office for a different reason. Review of Systems 2 Review of Systems: All systems reviewed & are unremarkable except as noted in HPI and below PMFSH Past Medical History Medical History (Updated 04/09/25 @ 11:39 by Damion Coleman MD) Benign essential tremor Persistent atrial fibrillation Ischemic cardiomyopathy Biventricular cardiac pacemaker in situ Hx of cardiac pacemaker Other fatigue Sialadenitis Other nonspecific abnormal finding of lung field Numbness in feet High thyroid stimulating hormone (TSH) level Encounter for screening for malignant neoplasm of prostate Elevated CPK Dietary counseling and surveillance (11/12/15) Acute appendicitis with localized peritonitis Surgical History Surgical History H/O heart bypass surgery Family History Family History Sibling Hypertension Patient's sister is in good health Patient's brother is in good health Patient's sister is Mother Patient's mother is Hypertension Family history of malignant neoplasm Father Patient's father is Carcinoma of colon Family history of malignant melanoma Family history of primary malignant neoplasm of liver Social History Social History Smoking packs per day: 1 Smoking cigarettes per day: 20.0 Years smoked: 10 Smoking pack-years: 10.00 Smoking status: Former smoker Tobacco type: cigarettes Second hand tobacco smoke exposure: No Smoking end date: 10/25/77 Alcohol intake: current Drinks per week: 16 Substance use: never Substance use type: does not use Do You Feel Safe in your Home?: Yes Lack of Transportation: No Lack of Food: Never True Current Housing: I Have Housing Concerned About Future Housing: No Difficulty Paying Gas/Electric Bills: No Difficulty Paying for Meds: No Currently Unemployed: No Education: Don't Know Difficulty w/ Childcare or Family Care: No Living arrangements: with family Occupation/Education: retired 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 Gender identity (if verbalized by the patient): Male Spiritual care concerns: No Meds Home Medications and Allergies Home Medications ?Medication ?Instructions ?Recorded ?Confirmed ?Type aspirin 81 mg tablet,delayed 81 mg PO DAILY 12/11/19 04/06/25 History release (Adult Low Dose Aspirin) cholecalciferol (vitamin D3) 125 5,000 unit PO DAILY 12/11/19 04/06/25 History mcg (5,000 unit) tablet multivitamin (Multiple Vitamins 1 tablet PO DAILY 12/11/19 04/06/25 History tablet) vit C,E,zinc,copper-ydgzx6m 250 1 cap PO DAILY 12/12/19 04/06/25 History mg-lutein 5 mg-zeaxanthin 1 mg capsule (Ocuvite Adult 50 Plus) ginkgo biloba 120 mg tablet 120 mg PO DAILY 03/17/21 04/06/25 History metoprolol tartrate 50 mg tablet 50 mg PO BID #180 tabs 01/14/22 04/06/25 Rx clopidogrel 75 mg tablet 75 mg PO DAILY #90 tabs 08/23/23 04/06/25 Rx empagliflozin 10 mg tablet 10 mg PO .HS 11/29/23 04/06/25 History (Jardiance) [id number] C-Mn 500 2 cap PO DAILY 11/29/23 04/06/25 History mg-400 mg capsule sacubitril 97 mg-valsartan 103 mg 1 tablet PO BID 11/29/23 04/06/25 History tablet (Entresto) turmeric root extract 500 mg 600 mg PO DAILY 11/29/23 04/06/25 History capsule magnesium oxide 400 mg PO DAILY 12/20/24 04/06/25 History alirocumab 75 mg/mL subcutaneous 75 mg subcut Q14D 04/06/25 04/06/25 History pen injector (Praluent Pen) magnesium 100 mg tablet 420 mg PO DAILY 04/06/25 04/06/25 History Allergies Allergy/AdvReac Type Severity Reaction Status Date / Time atorvastatin Allergy Severe chest Verified 04/06/25 09:44 pressure rosuvastatin Allergy Severe GI bleed, Verified 04/06/25 09:44 rash amlodipine Allergy Intermediate feet amd Verified 04/06/25 09:44 hands swell carvedilol Allergy Intermediate LBP, Verified 04/06/25 09:44 numbness and tinglin in legs and feet hydrochlorothiazide Allergy Intermediate chest Verified 04/06/25 09:44 pressure metoprolol Allergy Intermediate swelling Verified 04/06/25 09:44 hands and feet spironolactone Allergy Intermediate LBP, Verified 04/06/25 09:44 numbness/tingling in legs and feet ezetimibe Allergy Mild Cough Verified 04/06/25 09:44 lisinopril Allergy Mild cough Verified 04/06/25 09:44 Vital Signs Vital Signs - 24 hr 04/08/25 11:45 04/08/25 12:00 04/08/25 12:42 Temperature 99.9 F H 100.7 F H Pulse Rate 101 H Respiratory Rate Blood Pressure Pulse Oximetry Oxygen Delivery Fraction of Inspired Oxygen 04/08/25 12:45 04/08/25 13:36 04/08/25 14:43 Temperature 100.7 F H 100.5 F H Pulse Rate Respiratory Rate Blood Pressure Pulse Oximetry 93 Oxygen Delivery Room Air Fraction of Inspired Oxygen 21 04/08/25 14:43 04/08/25 14:48 04/08/25 15:23 Temperature 97.7 F Pulse Rate 82 86 82 Respiratory Rate 20 20 16 Blood Pressure 125/59 L Pulse Oximetry 94 Oxygen Delivery Fraction of Inspired Oxygen 04/08/25 16:00 04/08/25 18:02 04/08/25 20:00 Temperature 98.1 F 97.8 F Pulse Rate 80 84 84 Respiratory Rate 18 20 Blood Pressure 122/67 116/72 Pulse Oximetry 94 92 Oxygen Delivery Fraction of Inspired Oxygen 04/08/25 20:00 04/08/25 20:28 04/08/25 20:30 Temperature Pulse Rate 83 86 Respiratory Rate 20 20 Blood Pressure Pulse Oximetry 91 91 Oxygen Delivery Room Air Room Air Fraction of Inspired Oxygen 21 21 04/08/25 20:38 04/08/25 20:57 04/08/25 22:04 Temperature Pulse Rate 83 83 90 Respiratory Rate 20 Blood Pressure Pulse Oximetry Oxygen Delivery Fraction of Inspired Oxygen 04/09/25 00:00 04/09/25 00:00 04/09/25 01:50 Temperature 97.6 F Pulse Rate 74 74 80 Respiratory Rate 20 20 Blood Pressure 120/64 Pulse Oximetry 92 Oxygen Delivery Fraction of Inspired Oxygen 04/09/25 01:59 04/09/25 04:00 04/09/25 05:09 Temperature 98.9 F Pulse Rate 75 81 77 Respiratory Rate 20 20 Blood Pressure 120/53 L Pulse Oximetry 90 Oxygen Delivery Fraction of Inspired Oxygen 04/09/25 08:00 04/09/25 08:00 04/09/25 08:30 Temperature 97.8 F Pulse Rate 93 74 78 Respiratory Rate 19 20 Blood Pressure 122/58 L Pulse Oximetry 90 Oxygen Delivery Fraction of Inspired Oxygen 04/09/25 09:35 04/09/25 09:37 04/09/25 10:30 Temperature Pulse Rate 93 93 Respiratory Rate 20 Blood Pressure Pulse Oximetry 92 Oxygen Delivery Room Air Room Air Fraction of Inspired Oxygen 21 Exam 2 Const: General: cooperative, well developed and alert O rientation/consciousness: patient oriented x3 HENMT: Head: atraumatic Eyes: Alignment and Position: position normal Pupils: Equal, round and reactive pupils present EOM: EOMs intact bilaterally Neck: Neck: supple Resp: Effort & Inspection: normal respiratory effort Skin: General skin exam: normal color Neuro: General: patient oriented x3 Cranial nerves: Yes CN's II-XII intact bilaterally, Yes facial sensation intact/muscles of mastication intact, Yes Equal, round and reactive pupils present, Yes facial symmetry and Yes Midline tongue present Cognition (Neuro): normal cognition Speech: normal speech Motor exam (neuro): 5/5 motor strength present throughout Sensory Exam: n ormal sensation Coordination: [id number] test normal and Normal rapid alternating movements of the distal upper extremity present (Neuro) Other: Minimal borderline tremor of the outstretched hands noted. No cogwheeling. No dystonia or any other involuntary movements were noted. Coordination finger- nose appears within normal range. Extrem: General: normal to inspection Psych: Mental Status: mental status grossly normal Affect: normal affect Results Labs 04/09/25 04:43 04/09/25 04:43 Labs: Short CBC 04/09/25 Range/Units 04:43 WBC 5.0 (4.5-10.0) K/mm3 Hgb 12.1 L (14.0-18.0) g/dL Hct 36.6 L (42.0-52.0) % Plt Count 152 (150-375) k/mm3 BMP 04/09/25 04:43 Sodium 137 Potassium 3.4 Chloride 110 H Carbon Dioxide 17 L BUN 23 H Creatinine 0.96 Glucose 120 H Calcium 8.6 Liver Function 04/09/25 Range/Units 04:43 Total Bilirubin 0.7 (0.2-1.3) mg/dL AST 65 H (17-59) U/L ALT 46 (6-50) U/L Alkaline Phosphatase 151 H (38-126) U/L Albumin 3.1 L (3.5-5.1) g/dL
--- NOTE | 2025-04-09 13:44 | P.DS_ITS ---
DS: Admitting Diagnosis Discharge Date 04/09/2025 Admitting Diagnosis Weakness DS: Discharge Diagnosis Discharge Diagnosis (1) Pneumonia: Qualifiers: Laterality: unspecified laterality Lung location: unspecified part of lung Pneumonia type: due to unspecified organism Qualified Code(s): J18.9 - Pneumonia, unspecified organism Code(s): J18.9 - Pneumonia, unspecified organism Status: Acute (2) Acute hypoxic respiratory failure: Code(s): J96.01 - Acute respiratory failure with hypoxia Status: Acute DS: Summary Hospital Course Hospital Course: 74-year-old male past medical history pacemaker, CABG, hypertension, MORENITA presents to the hospital with weakness and a cough. Patient complains of productive cough, shortness of breath and weakness and increasing over the last several days. He states that today was so weak that he fell. Denies hitting his head denies loss of consciousness. Patient also complains of hemoptysis. Patient denies fevers and chills but endorses shaking for 2 hours followed by hot flashes. Denies vomiting. In the ED the patient has leukocytosis at 12.9, hemoglobin of 13.8, sodium of 134, carbon dioxide 19, BUN of 26, alkaline phos at 130, CK of 203, 1st troponin 0.039, 2nd troponin 0.036, UA shows 100+ rbc's negative for infection, influenza A/B, RSV, COVID negative. Chest x-ray shows left upper lobe mass consistent so with for bronchogenic carcinoma. CTA shows no pulmonary embolism, . Consolidation the left upper lobe and lingula consistent with pneumonia and Mild likely reactive mediastinal lymphadenopathy. EKG shows ventricular pacemaker at 77 QTC 537. patient was started on Rocephin and Doxycycline, and transitioned to Augmentin and Doxycycline. Patient was initially on oxygen, and transitioned to room air. discharged on 5 more days of Augmentin and Doxycycline. Patient also notd diarrhea however stated he has been having this diarrhea since he waas started on Entresto and Jardiance, thus diarrhea is not new. Also C diff PCR is negative. Since he noted diarrhea is not new patient was discharged on Probiotics. and will continue follow up with his PCP. neurology evaluated patient for tremors and noted it is benign and will follow up outpatinet. Elevarted troponin was considered demand from pneumonia and no further workup was recommended. Patient was discharged home with home health. F/u with PCP in 3-5 days Time Spent with Patient Time attestation: Total time spent providing and/or coordinating discharge services: DS: Data Data Completed and Pending Labs on day of discharge: Labs from last 24 hours 04/09/25 04:43 WBC 5.0 RBC 3.83 L Hgb 12.1 L Hct 36.6 L MCV 95.6 MCH 31.6 MCHC 33.1 RDW 14.9 H Plt Count 152 MPV 10.1 Sodium 137 Potassium 3.4 Chloride 110 H Carbon Dioxide 17 L Anion Gap 10 BUN 23 H Creatinine 0.96 Estim Creat Clear Calc 67 Estimated GFR > 60 Glucose 120 H Calcium 8.6 Total Bilirubin 0.7 AST 65 H ALT 46 Alkaline Phosphatase 151 H Total Protein 6.3 Albumin 3.1 L Preliminary micro results at discharge 04/06/25 11:46 Blood Culture - Preliminary Blood 04/06/25 11:46 Blood Culture - Preliminary Blood Discharge Plan Discharge Attending physician on discharge: Titi Mann Consulting providers: Barrett Gu; Damion Coleman Discharging Clinician: Titi Mann Anticipated Discharge Date/Time: 04/09/25 13:33 Patient Disposition: Home with Home Health Service Activity: as tolerated Diet: as tolerated and heart healthy Patient Instructions: Antibiotic Form, Acute Kidney Injury (DC), Fall P revention (DC) Patient Language: Ukrainian Stand Alone Forms: General Discharge Information Follow-up/Referrals: Barrett Gu MD [Physician] - (F/u with cardiology as insturcted ) Damion Coleman MD [Physician] - (F/u with Neurology as instructed ) Bne Jenkins DO [Primary Care Provider] - (F/u with PCP in 3-5 days ) Discharge Medications: New amoxicillin-pot clavulanate 875-125 mg tablet 1 tablet PO Q12H 5 Days Qty: 10 0RF doxycycline hyclate 100 mg tablet,delayed release (DR/EC) 100 mg PO BID 5 Days Qty: 10 0RF Saccharomyces boulardii 250 mg capsule 250 mg PO BID 30 Days Qty: 60 0RF Continued multivitamin [Multiple Vitamins] Tablet 1 tablet PO DAILY aspirin [Adult Low Dose Aspirin] 81 mg tablet,delayed release (DR/EC) 81 mg PO DAILY cholecalciferol (vitamin D3) 125 mcg (5,000 unit) tablet 5,000 unit PO DAILY Ocuvite Adult 50 Plus 250-5-1 mg capsule 1 cap PO DAILY metoprolol tartrate 50 mg tablet 50 mg PO BID Qty: 180 1RF Rx Instructions: TAKE 1 TABLET TWICE DAILY WITH MEALS turmeric root extract 500 mg capsule 600 mg PO DAILY Entresto 97-103 mg tablet 1 tablet PO BID Jardiance 10 mg tablet 10 mg PO .HS magnesium oxide 400 mg magnesium tablet 400 mg PO DAILY ginkgo biloba 120 mg Tablet 120 mg PO DAILY bpfesqlwybd-qqlxacesu-spj C-Mn 500-400 mg capsule 2 cap PO DAILY Patient Comments: 1500mg/1200mg Praluent Pen 75 mg/mL pen injector 75 mg subcut Q14D magnesium 100 mg tablet 420 mg PO DAILY clopidogrel 75 mg tablet 75 mg PO DAILY Qty: 90 1RF Date of admission: 04/06/25 14:00 Primary Care Provider: Ben Jenkins Admitting Provider: Piotr Gunter Attending physician on admission: Piotr Gunter Condition: Stable
== END 2025-04-09 16:15 | disposition home health service (06) | DRG 193 ==
LOC: ANHED 10:03 → ANHIMU 13:37 → ANH2MED 04-08 13:05
PROVIDERS: Emergency Medicine; General Practice; Nurse Practitioner Gerontology; Admitting Provider Internal Medicine; Emergency Provider Physician Assistant; PCP Internal Medicine; Visit Provider Internal Medicine
DX: J18.9 Pneumonia, unspecified organism (principal); J96.01 Acute respiratory failure with hypoxia; I48.19 Other persistent atrial fibrillation; N17.9 Acute kidney failure, unspecified; I25.10 Atherosclerotic heart disease of native coronary artery without angina pectoris; I25.5 Ischemic cardiomyopathy; I10 Essential (primary) hypertension; G47.33 Obstructive sleep apnea (adult) (pediatric); G25.0 Essential tremor; Z20.822 Contact with and (suspected) exposure to COVID-19; Z95.1 Presence of aortocoronary bypass graft; Z95.0 Presence of cardiac pacemaker; Z79.82 Long term (current) use of aspirin; Z87.891 Personal history of nicotine dependence; Z79.02 Long term (current) use of antithrombotics/antiplatelets
CPT/HCPCS: 36415; 71046; 71275; 80048; 80053; 81001; 82550; 83605; 84484; 85025; 85027; 85055; 85610; 85730; 87040; 87045; 87427; 87449; 87493; 87637; 87641; 93005; 94640; 96365; 96366; 96367; 96375; 97161; 97165; 99285; A9270; G0378; J0456; J0696; J1650; J7030; Q9967

== ENCOUNTER 2025-04-20 13:56 | Outpatient (CLI) | payer MEDICARE, SELFPAY ==
--- NOTE | ~2025-04-20 | XR_ITS ---
XR chest 2V Ordering provider: Austen Tucker APRN History: 74 years Male with . J18.9 - Pneumonia, unspecified organism . Comparison: April 06, 2025 FINDINGS: MEDIASTINUM: The cardiac silhouette is slightly enlarged. Left bipolar pacemaker. Postoperative monroe es in the mediastinum. LUNGS: Opacification seen posteriorly in the lateral view in the left upper lobe area which is sugges tive of residual pneumonia. No effusions or pneumothorax. OTHER: No free air under the diaphragm. IMPRESSION: Residual pneumonia in the left upper lobe area. Follow-up advised. Reviewed, dictated and finalized at location A.
== END 2025-04-20 13:57 | disposition home or self-care (01) ==
PROVIDERS: PCP Nurse Practitioner; Visit Provider Nurse Practitioner
DX: J18.9 Pneumonia, unspecified organism (principal)
CPT/HCPCS: 71046

== ENCOUNTER 2025-05-23 13:39 | Outpatient (CLI) | payer MEDICARE, SELFPAY ==
--- NOTE | ~2025-05-23 | XR_ITS ---
EXAMINATION: XR chest 2V Exam Date/Time: 05/23/2025 13:51 CDT HISTORY: J18.9 - Pneumonia, unspecified organism Comparison: 04/20/2025. RESULT: Lines, tubes, and devices: Intact sternotomy wires. Left chest pacer with intact leads. Mediastinal surgical clips. Lungs and pleura: Continued improving left upper lung consolidation. Cardiomediastinal silhouette: Stable. Other: No acute osseous or upper abdominal finding. IMPRESSION: Nearly resolved left upper lung consolidation, with some residual nodular opacity. Consider low-dose noncontrast CT of the chest in 3 months. Reviewed, dictated and finalized at location K. IMPRESSION: Nearly resolved left upper lung consolidation, with some residual nodular opaci ty. Consider low-dose noncontrast CT of the chest in 3 months.
--- OUTSIDE RECORDS SUMMARY | 2025-05-23 13:53 | XMS_ITS | Encounter Summary ---
Author Organization [facility] Healthcare Address [address] [place] [address] Care Team Providers Care Tick Sewer Name Role Phone Chon Goode Primary Care Provider Encounter Details Date Type Department Care Team (Late st Contact Info) Description 04/06/2025 Orders Only [facility] Information Management [address] [place] [id number] Scanning, Provider Social History Tobacco Use Types Packs/Day Years Used Date Smoking Tobacco: Former Cigarettes 1.5 12 1 - 10/24/1978 Smokeless Tobacco: Never Alcohol Use Standard Drinks/Week Comments Yes 2 [...] on file 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 Gender Identity Male 02/25/2021 9:12 AM CDT Sexual Orientation Not on file documented as of this encounter Plan of Treatment Not on file documented as of this encounter Procedures Procedure Name Priority Date/Time Associated Diagnosis Comments SCAN - RADIOLOGY/IMAGING 04/06/2025 documented in this encounter Results * SCAN - RADIOLOGY/IMAGING (04/06/2025) Anatomical Region Laterality Modality Other us Provider Scanning Edited Result - Final documented in this encounter Visit Diagnoses Not on filedocumented in this encounter Care Teams Tick Sewer Relationship Specialty Start Date End Date Chon Goode PA [address] [facility] [address] [place], [place] [id number] PCP - General Physician Mold Runner 10/31/24 documented as of this encounter
--- OUTSIDE RECORDS SUMMARY | 2025-05-23 13:53 | XMS_ITS | Clinical Summary ---
Author Organization [facility] Address [address] [place] [address] Phone Care Team Providers Care Fabrication Welder Name Role Phone Asim Mahmood Primary Care Provider [phone] Allergies Active Allergy Reactions Criticality Noted Date [...] Encounters Date Type Department Care Team Description 04/24/2025 External Device Data ST[facility] ABSTRACTION Provider, Abstract 04/24/2025 External Device Data [facility] ABSTRACTION Provider, Abstract 04/24/2025 External Device Data [place] ABSTRACTION Provider, Abstract 04/10/2025 External Device Data ST[place] ABSTRACTION Provider, Abstract 03/20/2025 External Device Data STL ABSTRACTION Provider, [...] Description 05/31/2025 2:15 PM CDT Procedure visit [facility] AT [address] [place] [address] 03/07/2026 11:00 AM CDT Office Visit [facility] AT [address] [place] [address] [place] Stewart MD [address] [place] [address] [address] [place] [address] Health Maintenance Due Date Last Done Comments [...] 1-dose 75+ series) 2023 INFLUENZA VACCINE (#1) 2025 Medical Devices Implanted Type Area Lav Crewman Device Identifier Shelf Expiration Date Model / Serial / Lot Lead Pacing Capsure Fix Novus 45cm [id number] - Csc - [id number] Implanted:Qty: 1 on 05/10/[address] [facility] Lead N/A: Heart [employer]- CRM - BULK BUY 12/29/2025 5076-45 / [id number] V / Lead Capsurefix Novus Mri 52cm Endocardial Pacing 5076-52 - [id number] Implanted:Qty: 1 on 05/10/[address] [facility] Lead N/A: Heart [employer]- CRM - BULK BUY 01/09/2026 5076-52 / [id number] V / Lead Pace Attain Performa-S 88cm [id number] - [id number] Implanted:Qty: 1 on 05/10/2024 by [place] Stewart MD at [facility] Lead N/A: Heart [employer]- CRM - BULK BUY 12/29/2025 [id number] / [id number] V / Pacemaker [employer] [facility] Manager-P Quad Mri Surescan [id number] - [id number] Implanted:Qty: 1 on 05/10/[address] [facility] Pacemaker Left: Chest [employer]- CRM - BULK BUY 09/21/2025 [id number] / [id number] / Insurance MEDICARE PART A AND B [facility] [id number] [place] [address] [employer] Medicare Part D Advance Directives For more information, please contact: [phone] * Full Code (Latest Code Status on File) Date Activated Date Inactivated Comments 05/10/2024 6:27 PM 05/10/2024 10:25 PM * Full Code Date Activated Date Inactivated Comments 05/10/2024 1:10 PM 05/10/2024 6:27 PM Care Teams Fabrication Welder Relationship Specialty Start Date End Date Asim Mahmood DO [address] [facility] [address] [place] [address] PCP - General Internal Medicine 02/29/24
--- OUTSIDE RECORDS SUMMARY | 2025-05-23 13:53 | XMS_ITS | Clinical Summary ---
Author Organization [facility] [address] Address [address] [place] [address] Care Team Providers Care Certified Vehicle Fire Investigator Name Role Phone Chon Goode Primary Care [...] Swelling,Other (See comments) Medium 02/16/2018 Back pain Mvdtqpx-Lnt-Kyq Reductase Inhibitors Other (See comments) Low 02/16/2018 [...] times a day. Active vit A,C and B-feuykq-uebol als (OCCUVITE with LUTEIN) 1,000 unit-200 mg-60 [...] mg by mouth daily as needed Active metoprolol tartrate (LOPRESSOR) 50 mg immediate [...] a day 180 tablet 2 5 Active Eliquis 5 mg tablet Take 1 tablet (5 mg total) by mouth 2 (two) times a day 5 Active clopidogreL (PLAVIX) 75 mg tablet Take 1 tablet (75 mg total) by mouth daily 90 tablet 3 5 05/09/20 25 Discontinu ed(Therapy completed) Active Problems Problem Noted Date Diagnosed Date Cardiac resynchronization th erapy pacemaker (FAMILY COURT COUNSELLOR-P) in place 05/10/2024 HFrEF (heart failure with reduced ejection fract ion) 01/20/2024 Atrial fibrillation 12/08/2023 Cardiomyopathy 04/22/2023 Medication side effects 10/02/2021 Aftercare following surgery of the circulatory s JAKUB langley 02/25/2021 Abnormal cardiovascular stress test 01/03/2021 Overview (01/03/2021): Added automatically from request for surgery [id number] LBBB (left bundle branch block) 12/31/2020 Premature atrial contractions 12/22/2019 Statin myopathy 12/22/2019 Mixed diabetic hyperlipidemi a associated with type 2 diabetes mellitus (CMS/HCC) 12/22/2019 Cervical myelopathy 11/02/2018 Spinal stenosis of lumbar re gion without neurogenic claudication 11/02/2018 Idiopathic peripheral neuropathy 07/29/2018 Lumbar spondylosis 07/29/2018 Coronary artery disease invo lving [place] coronary artery of [place] heart without angina pectoris 02/16/2018 Hypertension associated with diabetes 02/16/2018 MORENITA on CPAP 02/16/2018 Hx of CABG 02/16/2018 History of tobacco abuse 02/16/2018 Scar 08/07/2013 Subcutaneous nodule 08/07/2013 Skin neoplasm 06/30/2013 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 12/30/19 13 Resolved Problems Problem Noted Date Diagnosed Date Resolved Date Coronary artery disease invo lving autologous vein coronary bypass graft with angina pectoris (CMS/HCC) 01/14/2021 10/02/2021 Overview (01/14/2021): Added automatically from request for surgery [id number] Angina pectoris, unstable 01/03/2021 Overview (01/03/2021): Added automatically from request for surgery [id number] Dyslipidemia 02/16/2018 10/02/2021 Statin intolerance 02/16/2018 9 Abnormal blood chemistry level 05/28/2011 04/22/2023 Hypercholesterolemia 12/18/2008 021 Encounters Date Type Department Care Team Description 05/09/2025 8:15 AM CDT Office Visit [facility] [address] [place] [address] Barrett Gu MD Cardiac resynchronization therapy pacemaker (FAMILY COURT COUNSELLOR-P) in place (Primary Dx); Coronary artery disease involving [place] coronary artery of [place] heart without angina pectoris; Mixed diabetic hyperlipidemia associated with type 2 diabetes mellitus (CMS/HCC) (HCC); HFrEF (heart failure with reduced ejection fraction) ([facility]); Longstanding persistent atrial fibrillation (HCC) 04/10/2025 Orders Only [facility] [address] [place] [address] Barrett Gu MD 04/06/2025 Orders Only [facility] [address] [place] [address] Scanning, Provider 03/22/2025 Telephone [facility] [address] [place] [address] Barrett Gu MD from Last 3 Months Surgical History Surgery Date Site/Laterality Comments [place] CORONARY ARTERY BYPASS 1 CORONARY VENOUS GRAFT CABG - (Added by TW Conv) CARDIAC CATHETERIZATION CORONARY ANGIOPLASTY APPENDECTOMY 06/23/2018 CORONARY ARTERY BYPASS GRAFT 10/25/2006 - 10/24/2007 CORONARY ARTERY BYPASS GRAFT 01/20/2021 Redo CABGx2 Medical History Medical History Date Comments Personal history of other ma lignant neoplasm of skin Personal history of skin can cer - (Added by TW Conv) Hyperlipidemia Hypertension Sleep apnea home cpap [...] on file 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 Gender Identity Male 02/25/2021 9:12 AM CDT Sexual Orientation Not on file Obstetrics History Last Filed Vital Signs Vital Sign Reading Time Taken Comments Blood Pressure 110/68 05/09/2025 8:06 AM CDT Pulse 92 05/09/2025 8:06 AM CDT Temperature 36.1 C (97 F) 05/12/2023 2:20 PM CDT Respiratory Rate 16 05/09/2025 8:06 AM CDT Oxygen Saturation 99% 05/09/2025 8:06 AM CDT Inhaled Oxygen Concentration - - Weight 92.1 kg (203 lb) 05/09/2025 8:06 AM CDT Height 177.8 cm (5' 10) 05/09/2025 8:06 AM CDT Body Mass Index 29.13 05/09/2025 8:06 AM CDT Plan of Treatment Health Maintenance Due Date [...] Risk Assessment 01/24/2022 01/24/2021 eGFR 12/03/2024 12/03/2023, 0811/2022, 05/12/2023, Additional history exists Influenza Vaccine (#1) 2025 Lipid Panel 10/31/2025 10/31/2024, 100 05/2024, 03/09/2024, Additional history exists Medical Devices Implanted Type Area Human Resource Management Instructor Device Identifier Shelf Expiration Date Model / Serial / Lot Lisa Vascular Device Clsr Perclose Prostyle Sut-Mediatd Closure-Repai r Sys [id number] - S0 - [id number] Implanted:Qty : 1 on 05/12/2023 by Byron Horn MD at [facility] Vascular Closure Device Right: Femoral Lisa Vascular 01/22/2025 [id number] / 0 / [id number] Procedures Procedure Name Priority Date/Time Associated Diagnosis Comments SCAN - LABS 04/09/2025 CARDIOLOGY DOCUMENT SCAN Routine 04/08/2025 5:14 PM CDT CARDIOLOGY DOCUMENT SCAN Routine 04/07/2025 5:13 PM CDT SCAN - RADIOLOGY/IMAGING 04/06/2025 POCT LIPID PANEL Routine 10/31/2024 8:38 AM TANK BOTTOM ASSEMBLER Coronary artery disease involving [place] coronary artery of [place] heart without angina pectoris BASIC METABOLIC PANEL Routine 12/03/2023 8:02 AM TANK BOTTOM ASSEMBLER Hypertension associated with diabetes (HCC) Cardiomyopathy, unspecified type (HCC) HEMOGLOBIN A1C STAT 01/20/2021 6:51 AM CDT from Last 3 Months or Most Recently Relevant to Health Maintenance Results * SCAN - LABS (04/09/2025) us Provider Scanning Final Result * Cardiology Document Scan (04/08/2025 5:14 PM CDT) Anatomical Region Laterality Modality Other us Barrett Gu MD [facility] CARDIAC SERVICES PROCE DURES Final Result * Cardiology Document Scan (04/07/2025 5:13 PM CDT) Anatomical Region Laterality Modality Other Barrett Gu MD CV CARDIAC SERVICES PROCE DURES Final Result * SCAN - RADIOLOGY/IMAGING (04/06/2025) Anatomical Region Laterality Modality Other us Provider Scanning Edited Result - Final * POCT lipid panel (10/31/2024 8:38 AM TANK BOTTOM ASSEMBLER) Cholesterol, POC 172 mg/dL HDL, POC 59 mg/dL Triglycerides, POC 123 mg/dL LDL Cholesterol POC 88 mg/dL Chol/HDL Ratio, POC 1.5 Non-HDL Cholesterol, POC 113 mg/dL Cholesterol Total, POC 172 mg/dL Capillary blood 10/31/2024 8 :38 AM TANK BOTTOM ASSEMBLER Barrett Gu MD POINT OF CARE TEST ORDERA BLES Final Result * (ABNORMAL) Basic metabolic panel (12/03/2023 8:02 AM TANK BOTTOM ASSEMBLER) Glucose 101(H) 65 - 99 mg/dL [facility] Comment: Fasting reference interval For someone without known diabetes, a glucose value between 100 and 125 mg/dL is consistent with prediabetes and should be confirmed with a follow-up test. BUN 16 7 - 25 mg/dL [facility] Creatinine 0.91 0.70 - 1.28 mg/dL [facility] eGFR 88 > OR = 60 mL/min/1.7 3m2 [facility] BUN/creat ratio SEE NOTE: (calc) [facility] oswald Martinez Comment: Not Reported: BUN and Creatinine are within reference range. Sodium 141 135 - 146 mmol/L [facility] Potassium, pl 4.5 3.5 - 5.3 mmol/L [facility] Chloride 106 98 - 110 mmol/L [facility] CO2 27 20 - 32 mmol/L [facility] Calcium 9.4 8.6 - 10.3 mg/dL [facility] Blood 12/03/2023 8:02 AM TANK BOTTOM ASSEMBLER 12/03/2023 8:02 AM TANK BOTTOM ASSEMBLER Narrative [facility] - 12/03/2023 6:33 PM TANK BOTTOM ASSEMBLER FASTING:YES FASTING: YES us Brandon Vega MD LAB BLOOD ORDERABLES Fin al Result [facility] [address] [place] [address] * Hemoglobin A1c (01/20/2021 6:51 AM CDT) Hgb A1C 5.2 4.0 - 5.6 % [facility] Estimated Average Glucose 103 mg/dL [facility] Comment: The ADA recommends reporting an estimated Average Glucose (eAG) with all Hemoglobin A1c results using the equation derived from a study of 507 normal and diabetic adults. Minority populations were underrepresented and children were not included. (Diabetes Care 31:3834-9864, 2008). The eAG is not equivalent to a fasting glucose. Blood specimen (specimen) 01/20/2021 6:51 AM CDT 01/20/2021 6:51 AM CDT Jossue Marshall MD LAB BLOOD ORDERABLES Final Result [facility] [address] Department [place] [address] from Last 3 Months or Most Recently Relevant to Health Maintenance [place] [address] [facility] MEDICARE [facility] Address: [address] [address] [facility]IC[facility] Advance Directives For more information, please contact: [phone] Documents on File Type Date Recorded Patient Can Cleaner Expl anation ADVANCE DIRECTIVE 05/13/2023 4:52 PM POWER OF SHIFT SUPERVISOR-MEDICAL * Full Code (Latest Code Status on File) Date Activated Date Inactivated Comments 05/12/2023 3:58 PM 05/12/2023 10:20 PM * Full Code Date Activated Date Inactivated Comments 01/20/2021 1:00 PM 01/24/2021 5:02 PM * Full Code Date Activated Date Inactivated Comments 01/10/2021 12:47 PM 01/10/2021 8:57 PM Care Teams Certified Vehicle Fire Investigator Relationship Specialty Start Date End Date Chon Goode PA [address] [place] [address] PCP - General Physician Loop Drier Operator 10/31/24
--- OUTSIDE RECORDS SUMMARY | 2025-05-23 13:53 | XMS_ITS ---
Author Organization [facility] [address] Address [address] [place] [address] Care Team Providers Care Wool Washer Feeder Name Role Phone Chon Goode Primary Care Provider Active Problems Problem Noted Date Diagnosed Date Cardiac resynchronization th erapy pacemaker (GRINDING AND POLISHING LABORER-P) in place 05/10/2024 HFrEF (heart failure with reduced ejection fract ion) 01/20/2024 Atrial fibrillation 12/08/2023 Cardiomyopathy 04/22/2023 Medication side effects 10/02/2021 Aftercare following surgery of the circulatory s ystem, NEC 02/25/2021 Abnormal cardiovascular stress test 01/03/2021 Overview (01/03/2021): Added automatically from request for surgery [id number] LBBB (left bundle branch block) 12/31/2020 Premature atrial contractions 12/22/2019 Statin myopathy 12/22/2019 Mixed diabetic hyperlipidemi a associated with type 2 diabetes mellitus (CMS/HCC) 12/22/2019 Cervical myelopathy 11/02/2018 Spinal stenosis of lumbar re gion without neurogenic claudication 11/02/2018 Idiopathic peripheral neuropathy 07/29/2018 Lumbar spondylosis 07/29/2018 Coronary artery disease invo lving [place] coronary artery of [place] heart without angina pectoris 02/16/2018 Hypertension associated [...] vein coronary bypass graft with angina pectoris ([facility]) 01/14/2021 10/02/2021 Overview (01/14/2021): Added automatically from request for surgery [id number] Angina pectoris, unstable 01/03/2021 Overview (01/03/2021): Added automatically from request for surgery [id number] Dyslipidemia 02/16/2018 10/02/2021 Statin intolerance 02/16/2018 9 Abnormal blood chemistry level 05/28/2011 04/22/2023 Hypercholesterolemia 12/18/2008 021
--- OUTSIDE RECORDS SUMMARY | 2025-05-23 13:53 | XMS_ITS | Referral Summary ---
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); Longstanding persistent atrial fibrillation ([facility]) 04/10/2025 Orders Only [facility] Cardiology [address] [place] [address] [address] [place] [address] Barrett Gu MD 04/06/2025 Orders Only [facility] Health Information Management [address] [place] [address] Scanning, Provider 03/22/2025 Telephone [facility] Cardiology [address] [place] [address] [address] [place] [address] Barrett Gu MD from Last [...] Swelling,Other (See comments) Medium 02/16/2018 Back pain Spjjssk-Imi-Crs Reductase Inhibitors Other (See comments) Low 02/16/2018 [...] times a day. Active vit A,C and A-uddqjx-qkdwt als (OCCUVITE with LUTEIN) 1,000 unit-200 mg-60 [...] Diagnosed Date Cardiac resynchronization th erapy pacemaker (INTERNATIONAL TRADE SPECIALIST-P) in place 05/10/2024 HFrEF (heart failure with reduced ejection fract ion) 01/20/2024 Atrial fibrillation 12/08/2023 Cardiomyopathy 04/22/2023 Medication side effects 10/02/2021 Aftercare following surgery of the circulatory s kelsipremabeverlyJAKUB 02/25/2021 Abnormal cardiovascular stress test 01/03/2021 Overview (01/03/2021): Added automatically from request for surgery [id number] LBBB (left bundle branch block) 12/31/2020 Premature atrial contractions 12/22/2019 Statin myopathy 12/22/2019 Mixed diabetic hyperlipidemi a associated with type 2 diabetes mellitus ([facility]) 12/22/2019 Cervical myelopathy 11/02/2018 Spinal stenosis of lumbar re gion without neurogenic claudication 11/02/2018 Idiopathic peripheral neuropathy 07/29/2018 Lumbar spondylosis 07/29/2018 Coronary artery disease invo lving ione coronary artery of ione heart without angina pectoris 02/16/2018 Hypertension associated with diabetes 02/16/2018 MORENITA on CPAP 02/16/2018 Hx of CABG 02/16/2018 History of tobacco abuse 02/16/2018 Scar 08/07/2013 Subcutaneous nodule 08/07/2013 Skin neoplasm 06/30/2013 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 12/30/19 13 Resolved Problems Problem Noted Date Diagnosed Date Resolved Date Coronary artery disease invo lving autologous vein coronary bypass graft with angina pectoris ([facility]/HCC) 01/14/2021 10/02/2021 Overview (01/14/2021): Added automatically from request for surgery [id number] Angina pectoris, unstable 01/03/2021 Overview (01/03/2021): Added automatically from request for surgery [id number] Dyslipidemia 02/16/2018 10/02/2021 Statin intolerance 02/16/2018 9 [...] on file Legal Sex Male 11:44 PM SOUND CONTROLLER Gender Identity Male 02/25/2021 9:12 AM CDT [...] 05/09/2025 8:06 AM CDT Plan of Treatment Not on file Medical Devices Implanted Type Area Water Engineer Device Identifier Shelf Expiration Date Model / Serial / Lot Lisa Vascular Device Clsr Perclose Prostyle Sut-Mediatd Closure-Repai r Sys [id number] - S0 - [id number] Implanted:Qty : 1 on 05/12/2023 by Byron Horn MD at [facility] Vascular Closure Device Right: Femoral Lisa Vascular 01/22/2025 [id number] / 0 / [id number] Procedures Procedure Name Priority Date/Time Associated Diagnosis Comments SCAN - LABS 04/09/2025 CARDIOLOGY DOCUMENT SCAN Routine 04/08/2025 5:14 PM CDT CARDIOLOGY DOCUMENT SCAN Routine 04/07/2025 5:13 PM CDT SCAN - RADIOLOGY/IMAGING 04/06/2025 POCT LIPID PANEL Routine 10/31/2024 8:38 AM SOUND CONTROLLER 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 BASIC METABOLIC PANEL Routine 12/03/2023 8:02 AM SOUND CONTROLLER Hypertension associated with diabetes (HCC) Cardiomyopathy, unspecified [...] * POCT lipid panel (10/31/2024 8:38 AM SOUND CONTROLLER) Cholesterol, POC 172 mg/dL HDL, POC 59 mg/dL Triglycerides, POC 123 mg/dL LDL Cholesterol POC 88 mg/dL Chol/HDL Ratio, POC 1.5 Non-HDL Cholesterol, POC 113 mg/dL Cholesterol Total, POC 172 mg/dL Capillary blood 10/31/2024 8 :38 AM SOUND CONTROLLER Barrett Gu MD POINT OF CARE TEST ORDERA BLES Final Result * (ABNORMAL) Basic metabolic panel (12/03/2023 8:02 AM SOUND CONTROLLER) Pathologist [facility] Glucose 101(H) 65 - 99 mg/dL [facility] Martinez Comment: Fasting reference interval For someone without known diabetes, a glucose value between 100 and 125 mg/dL is consistent with prediabetes and should be confirmed with a follow-up test. BUN 16 7 - 25 mg/dL [facility] Creatinine 0.91 0.70 - 1.28 mg/dL [facility] Martinez eGFR 88 > OR = 60 mL/min/1.7 3m2 [facility]sw[facility] Martinez BUN/creat ratio SEE NOTE: 6 (calc) [facility] oswald Martinez Comment: Not Reported: BUN and Creatinine are within reference range. Sodium 141 135 - 146 mmol/L [facility] Martinez Potassium, pl 4.5 3.5 - 5.3 mmol/L [facility] Chloride 106 98 - 110 mmol/L [facility] CO2 27 20 - 32 mmol/L [facility] Calcium 9.4 8.6 - 10.3 mg/dL [facility]sw[facility] Martinez Blood 12/03/2023 8:02 AM SOUND CONTROLLER 12/03/2023 8:02 AM SOUND CONTROLLER Narrative [facility] - 12/03/2023 6:33 PM SOUND CONTROLLER FASTING:YES FASTING: YES Brandon Vega MD LAB BLOOD ORDERABLES Fin al Result [facility] [address] [place] [address] * Hemoglobin A1c (01/20/2021 6:51 AM CDT) Pathologist [facility] Hgb A1C 5.2 4.0 - 5.6 % [facility] Estimated Average Glucose 103 mg/dL [facility] Comment: The ADA recommends reporting an estimated Average Glucose (eAG) with all Hemoglobin A1c results using the equation derived from a study of 507 normal and diabetic adults. Minority populations were underrepresented and children were not included. (Diabetes Care 31:2166-7339, 2008). The eAG is not equivalent to a fasting glucose. Blood specimen (specimen) 01/20/2021 6:51 AM CDT 01/20/2021 6:51 AM CDT us Jossue Marshall MD LAB BLOOD ORDERABLES Final Result [facility] [address] Department [place] [address] from Last 3 Months or Most Recently Relevant to Health Maintenance Insurance MEDICARE [facility] MEDICARE [facility] MEDICARE [facility] Advance Directives For more information, please contact: [phone] Documents on File Type Date Recorded Patient Mediation Commissioner Expl anation ADVANCE DIRECTIVE 05/13/2023 4:52 PM POWER OF CAREER EDUCATION TEACHER-MEDICAL * Full Code (Latest Code Status on File) Date Activated Date Inactivated Comments 05/12/2023 3:58 PM 05/12/2023 10:20 PM * Full Code Date Activated Date Inactivated Comments 01/20/2021 1:00 PM 01/24/2021 5:02 PM * Full Code Date Activated Date Inactivated Comments 01/10/2021 12:47 PM 01/10/2021 8:57 PM Care Teams Dry Press Operator Helper Relationship Specialty Start Date End Date Chon Goode PA [address] [address] PCP - General Physician Electrical Prospecting Supervisor 10/31/24
== END 2025-05-23 13:40 | disposition home or self-care (01) ==
PROVIDERS: PCP Nurse Practitioner; Visit Provider Nurse Practitioner
DX: J18.9 Pneumonia, unspecified organism (principal)
CPT/HCPCS: 71046

== ENCOUNTER 2025-06-20 13:59 | Outpatient (CLI) | payer MEDICARE, SELFPAY ==
--- NOTE | ~2025-06-20 | CT_ITS ---
EXAMINATION: CT diagnostic chest wo caprice, 06/20/2025 14:00 CDT HISTORY: R91.1 - Solitary pulmonary nodule COMPARISON: Comparison 04/06/2025. TECHNIQUE: CT scan of the chest was performed without IV contrast. One or more of the following dose reduction techniques were used: automated exposure control, adjustment of the mA and/or kV according to patient size, use of iterative reconstruction technique. FINDINGS: No significant coronary calcification is present (msn13) LUNGS: No tracheomalacia. No bronchiectasis. Minimal emphysematous changes. No bullous formation. Minimal pulmonary fibrotic changes. No significant honeycombing identified. Scattered bilateral calcified granulomas noted. Ill- defined minimal groundglass attenuation noted in the left upper lobe posterio rly. Left lung apex 2 mm micronodule. There are areas of linear atelectasis in the left upper lobe and lingula. HEART AND PERICARDIUM: Within normal limits. AORTA: Normal caliber aorta. ADENOPATHY/MEDIASTINUM: Subcentimeter calcified mediastinal lymph nodes. LIMITED VIEWS OF THE ABDOMEN: Punctate calcified splenic granulomas. OSSEOUS STRUCTURES: No sclerotic or lytic lesions. Poststernotomy changes. No acute rib fractures. OVERLYING SOFT TISSUES: Left pacemaker. Within the soft tissues of the left chest there is a solid appearing focus measuring 1.1 x 1 cm incompletely evaluated, small focus of nodular gynecomastia is not excluded, clinical correlation is required. THYROID: The thyroid is unremarkable. IMPRESSION: 1. Minimal residual groundglass attenuation in the left upper lobe probably post infectious. Follow-up is suggested to ensure complete resolution. Reviewed, dictated and finalized at location A. IMPRESSION: 1. Minimal residual groundglass attenuation in the left upper lobe probably pos t infectious. Follow-up is suggested to ensure complete resolution.
--- OUTSIDE RECORDS SUMMARY | 2025-06-20 14:06 | XMS_ITS | Clinical Summary ---
Author Organization [facility] [address] Address [address] [place] [address] Care Team Providers Care Batch Plant Supervisor Name Role Phone Chon Goode Primary [...] Swelling,Other (See comments) Medium 02/16/2018 Back pain [facility] Reductase Inhibitors Other (See comments) Low 02/16/2018 Myositis/severe myalgias Ezetimibe Cough Low 02/16/2018 Medications aspirin 81 mg tablet Take 1 tablet (81 mg total) by mouth daily Active multivitamin tabletIndicatio ns:Vitamin Deficiency Prevention Take 1 tablet by mouth daily Active cholecalciferol (VITAMIN D-3) 5,000 unit capsule Take 1 capsule (5,000 Units total) by mouth daily Active glucosamine/cho ndr alvarez A sod (GLUCOSAMINE-CH ONDROITIN) 1,500-1,200 mg/30 mL liquid Take 1 tablet by mouth 2 (two) times a day. Active vit A,C and B-xbqpud-bigpar ls (OCCUVITE with LUTEIN) 1,000 unit-200 mg-60 unit-2 mg tabletIndicatio ns:Vitamin Deficiency Prevention Take 1 tablet by mouth daily Active ginkgo biloba leaf extract 120 mg capsule Take 120 mg by mouth daily 0 Active magnesium oxide (MAG-OX) 250 mg (150.8 mg elemental) tabletIndicatio ns:hypomagnesem ia Take 1 tablet (250 mg total) by [...] mouth daily 90 tablet 2 5 Active sacubitriL-vals luis angel (ENTRESTO) 97-103 mg tabletIndicatio ns:chronic heart failure Take 1 tablet by mouth 2 (two) times a day 180 tablet 2 5 Active Eliquis 5 mg tablet Take 1 tablet (5 mg total) by mouth 2 (two) times a day 5 Active Active Problems Problem Noted Date Diagnosed Date Cardiac resynchronization th erapy pacemaker (DISBURSING OFFICER-P) in place 05/10/2024 HFrEF (heart failure with reduced ejection fract ion) 01/20/2024 Atrial fibrillation 12/08/2023 Cardiomyopathy 04/22/2023 Medication side effects 10/02/2021 Aftercare following surgery of the circulatory s ystem, NEC 02/25/2021 Abnormal cardiovascular stress test 01/03/2021 Overview (01/03/2021): Added automatically from request for surgery [id number] LBBB (left bundle branch block) 12/31/2020 Premature atrial contractions 12/22/2019 Statin myopathy 12/22/2019 Mixed diabetic hyperlipidemi a associated with type 2 diabetes mellitus (CMS/HCC) 12/22/2019 Cervical myelopathy 11/02/2018 Spinal stenosis of lumbar re gion without neurogenic claudication 11/02/2018 Idiopathic peripheral neuropathy 07/29/2018 Lumbar spondylosis 07/29/2018 Coronary artery disease invo lving [place] coronary artery of [place] heart without angina pectoris 02/16/2018 Hypertension associated [...] (01/14/2021): Added automatically from request for surgery [id number] Angina pectoris, unstable 01/03/2021 Overview (01/03/2021): Added automatically from request for surgery [id number] Dyslipidemia 02/16/2018 10/02/2021 Statin intolerance 02/16/2018 9 Abnormal blood chemistry level 05/28/2011 04/22/2023 Hypercholesterolemia 12/18/2008 021 Encounters Date Type Department Care Team Description 05/09/2025 8:15 AM CDT Office Visit [facility] Cardiology [address] [place] [address] Barrett Gu MD Cardiac resynchronization therapy pacemaker (DISBURSING OFFICER-P) in place (Primary Dx); Coronary artery disease involving [place] coronary artery of [place] heart without angina pectoris; Mixed diabetic hyperlipidemia associated with type 2 diabetes mellitus (CMS/HCC) (HCC); HFrEF (heart failure with reduced ejection fraction) ([facility]); Longstanding persistent atrial fibrillation ([facility]) 04/10/2025 Orders Only [facility] Cardiology [address] [place] [address] Barrett Gu MD 04/06/2025 Orders Only [facility] Health Information Management [address] [place] [address] Scanning, Provider 03/22/2025 Telephone [facility] Cardiology [address] [place] [address] Barrett Gu MD from Last 3 Months Surgical History Surgery Date Site/Laterality Comments [place] CORONARY ARTERY BYPASS 1 CORONARY VENOUS GRAFT [...] on file Legal Sex Male 11:44 PM HAND PICKER Gender Identity Male 02/25/2021 9:12 AM CDT [...] 11/2022, 05/12/2023, Additional history exists Influenza Vaccine (#1) 2025 Lipid Panel 10/31/2025 10/31/2024, 10/0 05/2024, 03/09/2024, Additional history exists Medical Devices Implanted Type Area Costume Technician Device Identifier Shelf Expiration Date Model / Serial / Lot Lisa Vascular Device Clsr Perclose Prostyle Sut-Mediatd Closure-Repai r s [id number] - S0 - [id number] Implanted:Qty : 1 on 05/12/2023 by Byron Horn MD at [facility] Vascular Closure Device Right: Femoral Lisa Vascular 01/22/2025 [id number] / 0 / [id number] Procedures Procedure Name Priority Date/Time Associated Diagnosis Comments SCAN - LABS 04/09/2025 CARDIOLOGY DOCUMENT SCAN Routine 04/08/2025 5:14 PM CDT CARDIOLOGY DOCUMENT SCAN Routine 04/07/2025 5:13 PM CDT SCAN - RADIOLOGY/IMAGING 04/06/2025 POCT LIPID PANEL Routine 10/31/2024 8:38 AM HAND PICKER Coronary artery disease involving [place] coronary artery of [place] heart without angina pectoris BASIC METABOLIC PANEL Routine 12/03/2023 8:02 AM HAND PICKER Hypertension associated with diabetes (HCC) Cardiomyopathy, unspecified [...] * POCT lipid panel (10/31/2024 8:38 AM HAND PICKER) Cholesterol, POC 172 mg/dL HDL, POC 59 mg/dL Triglycerides, POC 123 mg/dL LDL Cholesterol POC 88 mg/dL Chol/HDL Ratio, POC 1.5 Non-HDL Cholesterol, POC 113 mg/dL Cholesterol Total, POC 172 mg/dL Capillary blood 10/31/2024 8 :38 AM HAND PICKER Barrett Gu MD POINT OF CARE TEST ORDERA BLES Final Result * (ABNORMAL) Basic metabolic panel (12/03/2023 8:02 AM HAND PICKER) Glucose 101(H) 65 - 99 mg/dL [facility] Comment: Fasting reference interval For someone without known diabetes, a glucose value between 100 and 125 mg/dL is consistent with prediabetes and should be confirmed with a follow-up test. BUN 16 7 - 25 mg/dL [facility] Creatinine 0.91 0.70 - 1.28 mg/dL [facility] eGFR 88 > OR = 60 mL/min/1.7 3m2 [facility] BUN/creat ratio SEE NOTE: 6 (calc) [facility] Comment: Not Reported: BUN and Creatinine are within reference range. Sodium 141 135 - 146 mmol/L [facility] Potassium, pl 4.5 3.5 - 5.3 mmol/L [facility] Chloride 106 98 - 110 mmol/L [facility] CO2 27 20 - 32 mmol/L [facility] oswald Martinez Calcium 9.4 8.6 - 10.3 mg/dL [facility] Blood 12/03/2023 8:02 AM HAND PICKER 12/03/2023 8:02 AM HAND PICKER Narrative [facility] - 12/03/2023 6:33 PM HAND PICKER FASTING:YES FASTING: YES Brandon Vega MD LAB BLOOD ORDERABLES Fin al Result [facility] [address] [place] [address] * Hemoglobin A1c (01/20/2021 6:51 AM CDT) [facility] Hgb A1C 5.2 4.0 - 5.6 % [facility] Estimated Average Glucose 103 mg/dL [facility] Comment: The ADA recommends reporting an estimated Average Glucose (eAG) with all Hemoglobin A1c results using the equation derived from a study of 507 normal and diabetic adults. Minority populations were underrepresented and children were not included. (Diabetes Care 31:1818-1277, 2008). The eAG is not equivalent to a fasting glucose. Blood specimen (specimen) 01/20/2021 6:51 AM CDT 01/20/2021 6:51 AM CDT Jossue Marshall MD LAB BLOOD ORDERABLES Final Result [facility] [address] Department [place] [address] from Last 3 Months or Most Recently Relevant to Health Maintenance Insurance MEDICARE [facility] MEDICARE [facility] [place] [address] MEDICARE [facility] Advance Directives For more information, please contact: [phone] Documents on File Type Date Recorded Patient County Auditor Expl anation ADVANCE DIRECTIVE 05/13/2023 4:52 PM POWER OF MORNING CAREGIVER-MEDICAL * Full Code (Latest Code Status on File) Date Activated Date Inactivated Comments 05/12/2023 3:58 PM 05/12/2023 10:20 PM * Full Code Date Activated Date Inactivated Comments 01/20/2021 1:00 PM 01/24/2021 5:02 PM * Full Code Date Activated Date Inactivated Comments 01/10/2021 12:47 PM 01/10/2021 8:57 PM Care Teams Batch Plant Supervisor Relationship Specialty Start Date End Date Chon Goode PA [address] [id number] PCP - General Physician Warehouse Logistics Manager 10/31/24
--- OUTSIDE RECORDS SUMMARY | 2025-06-20 14:06 | XMS_ITS | Encounter Summary ---
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
--- OUTSIDE RECORDS SUMMARY | 2025-06-20 14:06 | XMS_ITS | Encounter Summary ---
Author Organization [facility] Healthcare Address [address] [place] [address] Care Team Providers Care Vice President Commercial Bank Name Role Phone Asim Mahmood MD Primary Care Provider + [phone] Austen Tucker NP Primary Care Provider [phone] Chon Goode Primary Care Provider Encounter Details Date Type Department Care Team (Late st Contact Info) Description 06/24/2018 Orders Only [facility] Health Information Management [address] [place] [address] Scanning, Provider Social History Tobacco Use Types Packs/Day Years Used Date Smoking Tobacco: Former Smokeless Tobacco: Never Alcohol Use Standard Drinks/Week Comments Yes 2 (1 standard drink = 0.6 oz pur e alcohol) Sex and Gender Information Value Date Recorded Sex Assigned at Not on file Legal 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 Male 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 [employer] Gender Identity Male 02/25/2021 9:12 AM CDT Sexual Orientation Not on file documented as of this encounter Plan of Treatment Not on file documented as of this encounter Procedures Procedure Name Priority Date/Time Associated Diagnosis Comments SCAN - LABS 06/24/2018 documented in this encounter Results * SCAN - LABS (06/24/2018) us Provider Scanning Final Result documented in this encounter Visit Diagnoses Not on filedocumented in this encounter Care Teams Vice President Commercial Bank Relationship Specialty Start Date End Date Asim Mahmood MD [address] [facility] [address] [place] [address] PCP - General Internal Medicine 10/05/17 07/31/24 Austen Tucker NP [address] [place] [address] PCP - General Nurse Practitioner 08/01/24 10/30/24 Chon Goode PA [address] [place] [address] PCP - General Physician Process Tech 10/31/24 documented as of this encounter
--- OUTSIDE RECORDS SUMMARY | 2025-06-20 14:06 | XMS_ITS | Clinical Summary ---
Author Organization [facility] Address [address] [place] [address] Phone Care Team Providers Care Body Straightener Name Role Phone Asim Mahmood Primary Care Provider [phone] Allergies Active Allergy Reactions Criticality Noted Date [...] Encounters Date Type Department Care Team Description 06/12/2025 External Device Data STL ABSTRACTION Provider, Abstract 06/12/2025 External Device Data ST[place] ABSTRACTION Provider, Abstract 05/31/2025 2:15 PM CDT Procedure visit [facility] AT [address] [place] [address] Ischemic cardiomyopathy (Primary Dx); Pacemaker 05/29/2025 External Device Data ST[place] ABSTRACTION Provider, Abstract [...] Care Team (Late st Contact Info) Description 09/04/2025 1:45 PM CREDIT COLLECTIONS SPECIALIST Procedure visit [facility] AT [address] [place] [address] 03/07/2026 11:00 AM CDT Office Visit [facility] AT [address] [place] [address] Norman Stewart MD [address] [place] [address] [address] [place] [address] 03/07/2026 11:30 AM CDT Procedure visit [facility] AT [address] [place] [address] Health Maintenance Due Date Last Done Comments [...] (#1) 2025 Medical Devices Implanted Type Area Machine Installer Device Identifier Shelf Expiration Date Model / Serial / Lot Lead Pacing Capsure Fix Novus 45cm [id number] - Csc - [id number] Implanted:Qty: 1 on 05/10/2024 at [facility] Lead N/A: Heart [employer]- CRM - BULK BUY 12/29/2025 5076-45 / [id number] / Lead Capsurefix Novus Mri 52cm Endocardial Pacing 5076-52 - [id number] Implanted:Qty: 1 on 05/10/2024 at [facility] Lead N/A: Heart [employer]- CRM - BULK BUY 01/09/2026 5076-52 / [id number] / Lead Pace Attain Performa-S 88cm [id number] - [id number] Implanted:Qty: 1 on 05/10/2024 by Norman Stewart MD at [facility] Lead N/A: Heart [employer]- CRM - BULK BUY 12/29/2025 [id number] / [id number] / Pacemaker Crys Senior Care Specialist-P Quad Mri Surescan W4tr02 - [id number] Implanted:Qty: 1 on 05/10/2024 at [facility] Pacemaker Left: Chest [employer]- CRM - BULK BUY 09/21/2025 [id number] / [id number] / Procedures Procedure Name Priority Date/Time Associated Diagnosis Comments AR REM INTERROG PM/LDLS PM/IDS <90 D TECH REVIEW Routine 05/31/2025 9:18 AM CDT Ischemic cardiomyopathy Pacemaker AR REM INTERROG PM/LDLS PM <90 D PHYS/QHP Routine 05/31/2025 9:18 AM CDT Ischemic cardiomyopathy Pacemaker from Last 3 Months Results * AR REM INTERROG PM/LDLS PM <90 D PHYS/QHP, AR REM INTERROG PM/LDLS PM/IDS <90 D TECH REVIEW (05/31/2025 9:18 AM CDT) 05/31/2025 9:18 AM CDT Narrative INTERFACE SYSTEM - 05/31/2025 12:04 PM CDT Remote Carelink Transmission Appropriate PAPER CUP MACHINE OPERATOR-P function. Presenting Rhythm: AF BVp,Vs Battery: 6.9 yrs. VALIDATION ARCHITECT 98.2% AT/AF burden 100% No ventricular arrhythmias noted. EF 30% as of 08/10/2024. Per StatSheet, Patient takes Plavix, metoprolol, aspirin. Results sent via [employer] Procedure Note Provider, Historical - 05/31/2025 Remote Carelink Transmission Appropriate PAPER CUP MACHINE OPERATOR-P function. Presenting Rhythm: AF BVp,Vs Battery: 6.9 yrs. VALIDATION ARCHITECT 98.2% AT/AF burden 100% No ventricular arrhythmias noted. EF 30% as of 08/10/2024. Per Epic, Patient takes Plavix, metoprolol, aspirin. Results sent via [employer] Norman Stewart MD CARDIAC SERVICES ORDERABLES Edit ed Result - Final Performing Organization Address City/State/[facility] Co de Phone Number INTERFACE SYSTEM Refer to clinic/hospital department from Last [address] [place] [address] MEDICARE PART A AND B [facility] [id number] [place] [address] [employer] Medicare Part D Advance Directives For more information, please contact: [phone] * Full Code (Latest Code Status on File) Date Activated Date Inactivated Comments 05/10/2024 6:27 PM 05/10/2024 10:25 PM * Full Code Date Activated Date Inactivated Comments 05/10/2024 1:10 PM 05/10/2024 6:27 PM Care Teams Body Straightener Relationship Specialty Start Date End Date Asim Mahmood DO [address] [facility] [address] [place] [address] PCP - General Internal Medicine 02/29/24
--- OUTSIDE RECORDS SUMMARY | 2025-06-20 14:06 | XMS_ITS ---
Author Organization [facility] [address] Address [address] [place] [address] Care Team Providers Care Rigging Up Man Name Role Phone Chon Goode Primary Care Provider Active Problems Problem Noted Date Diagnosed Date Cardiac resynchronization th erapy pacemaker (MANAGER LEADERSHIP DEVELOPMENT-P) in place 05/10/2024 HFrEF (heart failure with reduced ejection fract ion) 01/20/2024 Atrial fibrillation 12/08/2023 Cardiomyopathy 04/22/2023 Medication side effects 10/02/2021 Aftercare following surgery of the circulatory s ystem, NEC 02/25/2021 Abnormal cardiovascular stress test 01/03/2021 Overview (01/03/2021): Added automatically from request for surgery [id number] LBBB (left bundle branch block) 12/31/2020 Premature atrial contractions 12/22/2019 Statin myopathy 12/22/2019 Mixed diabetic hyperlipidemi a associated with type 2 diabetes mellitus (CMS/HCC) 12/22/2019 Cervical myelopathy 11/02/2018 Spinal stenosis of lumbar re gion without neurogenic claudication 11/02/2018 Idiopathic peripheral neuropathy 07/29/2018 Lumbar spondylosis 07/29/2018 Coronary artery disease invo lving [place] coronary artery of [place] heart without angina pectoris 02/16/2018 Hypertension associated [...] Lifetime Dose Automatic Entry Manual Entr y Fluoro Time 6.5 minutes 0 minutes 6.5 minutes Air kerma at the reference p oint (Ka,r) 1,684.53 mGy 0 mGy 1,684.53 mGy DAP 8,922.716 Gy-cm2 0 Gy-cm2 8,922.716 G y-cm2 Resolved Problems Problem Noted Date Diagnosed Date Resolved Date 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
== END 2025-06-20 14:00 | disposition home or self-care (01) ==
PROVIDERS: PCP Nurse Practitioner; Visit Provider Nurse Practitioner
DX: R91.1 Solitary pulmonary nodule (principal)
CPT/HCPCS: 71250

== ENCOUNTER 2025-07-09 16:00 | Outpatient (CLI) | payer MEDICARE, SELFPAY ==
[2025-07-09 18:18] LABS: Toxigenic C. Diff POSITIVE (NEGATIVE)
--- OUTSIDE RECORDS SUMMARY | 2025-07-09 18:42 | XMS_ITS | Encounter Summary ---
Author Organization [facility] Healthcare Address [address] [place] [address] Care Team Providers Care Imager Name Role Phone Chon Goode Primary Care Provider Encounter Details Date Type Department Care Team (Late st Contact Info) Description 04/06/2025 Orders Only [facility] Health Information Management [address] [place] [address] Scanning, Provider Social History Tobacco Use Types [...] on file Legal Sex Male 11:44 PM FACTORY HAND Gender Identity Male 02/25/2021 9:12 AM CDT [...] on filedocumented in this encounter Care Teams Imager Relationship Specialty Start Date End Date Chon Goode PA [address] [facility] [address] [place], [place] [id number] PCP - General Physician Payroll Accounting Clerk 10/31/24 documented as of this encounter
--- OUTSIDE RECORDS SUMMARY | 2025-07-09 18:42 | XMS_ITS | Clinical Summary ---
Author Organization [facility] Address [address] [facility] [place] [address] Phone Care Team Providers Care Patient Service Representative Name Role Phone Asim Mahmood Primary Care Provider [phone] Allergies Active Allergy Reactions Criticality Noted Date [...] Encounters Date Type Department Care Team Description 06/26/2025 External Device Data STL ABSTRACTION Provider, Abstract 06/12/2025 External Device Data ST[place] ABSTRACTION Provider, Abstract 06/12/2025 External Device Data [place] ABSTRACTION Provider, Abstract 05/31/2025 2:15 PM CDT Procedure visit [facility] AT [facility] [address] [facility] [address] [place] [address] Ischemic cardiomyopathy (Primary Dx); Pacemaker [...] st Contact Info) Description 09/04/2025 1:45 PM SENIOR GL ACCOUNTANT Procedure visit [facility] EP AT [address] [place] [address] 03/07/2026 11:00 AM CDT Office Visit [facility] EP AT [address] [place] [address] Norman Stewart MD [address] [place] [address] [address] [place] [address] 03/07/2026 11:30 AM CDT Procedure visit [facility] AT [address] [place] [address] Health Maintenance Due Date Last Done Comments [...] (#1) 2025 Medical Devices Implanted Type Area Director Of Operations Support Device Identifier Shelf Expiration Date Model / Serial / Lot Lead Pacing Capsure Fix Novus 45cm [id number] - Csc - [id number] Implanted:Qty: 1 on 05/10/[address] [facility] Lead N/A: Heart [employer]- CRM - BULK BUY 12/29/2025 5076-45 / [id number] V / Lead Capsurefix Novus Mri 52cm Endocardial Pacing 5076-52 - [id number] Implanted:Qty: 1 on 05/10/[address] [facility] Lead N/A: Heart [employer]- CRM - BULK BUY 01/09/2026 5076-52 / [id number] V / Lead Pace Attain Performa-S 88cm [id number] - [id number] Implanted:Qty: 1 on 05/10/2024 by Norman Stewart MD at [facility] Lead N/A: Heart [employer]- CRM - BULK BUY 12/29/2025 [id number] / [id number] V / Pacemaker Crys Order Checker Packer Processer-P Quad Mri Surescan W4tr02 - [id number] Implanted:Qty: 1 on 05/10/[address] [facility] Pacemaker Left: Chest [employer]- CRM - BULK BUY 09/21/2025 [id number] / [id number] S / Procedures Procedure Name Priority Date/Time Associated Diagnosis Comments VT REM INTERROG PM/LDLS PM/IDS <90 D TECH REVIEW Routine 05/31/2025 9:18 AM CDT Ischemic cardiomyopathy Pacemaker VT REM INTERROG PM/LDLS PM <90 D PHYS/QHP Routine 05/31/2025 9:18 AM CDT Ischemic cardiomyopathy Pacemaker from Last 3 Months Results * VT REM INTERROG PM/LDLS PM <90 D PHYS/QHP, VT REM INTERROG PM/LDLS PM/IDS <90 D TECH REVIEW (05/31/2025 9:18 AM CDT) 05/31/2025 9:18 AM CDT Narrative INTERFACE SYSTEM - 05/31/2025 12:04 PM CDT Remote Carelink Transmission Appropriate DESIGN ENGINEERING TECHNICIAN-P function. Presenting Rhythm: AF BVp,Vs Battery: 6.9 yrs. OPERATOR SUPPLY 98.2% AT/AF burden 100% No ventricular arrhythmias noted. EF 30% as of 08/10/2024. Per K[employer], Patient takes Plavix, metoprolol, aspirin. Results sent via [employer] Procedure Note Provider, Historical - 05/31/2025 Remote Carelink Transmission Appropriate DESIGN ENGINEERING TECHNICIAN-P function. Presenting Rhythm: AF BVp,Vs Battery: 6.9 yrs. OPERATOR SUPPLY 98.2% AT/AF burden 100% No ventricular arrhythmias noted. EF 30% as of 08/10/2024. Per Epic, Patient takes Plavix, metoprolol, aspirin. Results sent via [employer] Norman Stewart MD CARDIAC SERVICES ORDERABLES Edit ed Result - Final Performing Organization Address City/State/[facility] Co de Phone Number INTERFACE SYSTEM Refer to clinic/hospital department from Last [address] [place] [address] MEDICARE PART A AND B [facility] [id number] [place] [address] RX [employer] Medicare Part D Advance Directives For more information, please contact: [phone] * Full Code (Latest Code Status on File) Date Activated Date Inactivated Comments 05/10/2024 6:27 PM 05/10/2024 10:25 PM * Full Code Date Activated Date Inactivated Comments 05/10/2024 1:10 PM 05/10/2024 6:27 PM Care Teams Patient Service Representative Relationship Specialty Start Date End Date Asim Mahmood DO [address] [facility] [address] [place] [address] PCP - General Internal Medicine 02/29/24
--- OUTSIDE RECORDS SUMMARY | 2025-07-09 18:42 | XMS_ITS | Encounter Summary ---
Author Organization [facility] Healthcare Address [address] [place] [address] Care Team Providers Care Steamer Operator Name Role Phone Asim Mahmood MD Primary Care Provider [phone] Austen Tucker NP Primary Care Provider [phone] Chon Goode Primary Care Provider Encounter Details Date Type Department Care Team (Late st Contact Info) Description 06/24/2018 Orders Only [facility] Health Information Management [address] [place] [address] Scanning, Provider Social History Tobacco Use Types Packs/Day Years Used Date Smoking Tobacco: Former Smokeless Tobacco: Never Alcohol Use Standard Drinks/Week Comments Yes 2 (1 standard drink = 0.6 oz pur e alcohol) Sex and Gender Information Value Date Recorded Sex Assigned at Not on file Legal Sex 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
--- OUTSIDE RECORDS SUMMARY | 2025-07-09 18:42 | XMS_ITS | Clinical Summary ---
Author Organization [facility] [address] Address [address] [place] [address] Care Team Providers Care Print Production Associate Name Role Phone Chon Goode Primary Care [...] Swelling,Other (See comments) Medium 02/16/2018 Back pain Iigtzah-Zgv-Jth Reductase Inhibitors Other (See comments) Low 02/16/2018 [...] times a day. Active vit A,C and V-psujii-wvaogw ls (OCCUVITE with LUTEIN) 1,000 unit-200 mg-60 [...] Diagnosed Date Cardiac resynchronization th erapy pacemaker (PACKAGE WORKER-P) in place 05/10/2024 HFrEF (heart failure with reduced ejection fract ion) 01/20/2024 Atrial fibrillation 12/08/2023 Cardiomyopathy 04/22/2023 Medication side effects 10/02/2021 Aftercare following surgery of the circulatory s ystem, NEC 02/25/2021 Abnormal cardiovascular stress test 01/03/2021 Overview (01/03/2021): Added automatically from request for surgery [id number] LBBB (left bundle branch block) 12/31/2020 Premature atrial contractions 12/22/2019 Statin myopathy 12/22/2019 Mixed diabetic hyperlipidemi a associated with type 2 diabetes mellitus (CMS/HCC) 12/22/2019 Cervical myelopathy 11/02/2018 Spinal stenosis of lumbar re gion without neurogenic claudication 11/02/2018 Idiopathic peripheral neuropathy 07/29/2018 Lumbar spondylosis 07/29/2018 Coronary artery disease invo lving [place] coronary artery of [place] heart without angina pectoris 02/16/2018 Hypertension associated [...] (01/14/2021): Added automatically from request for surgery [id number] Angina pectoris, unstable 01/03/2021 Overview (01/03/2021): Added automatically from request for surgery [id number] Dyslipidemia 02/16/2018 10/02/2021 Statin intolerance 02/16/2018 9 Abnormal blood chemistry level 05/28/2011 04/22/2023 Hypercholesterolemia 12/18/2008 021 Encounters Date Type Department Care Team Description 05/09/2025 8:15 AM CDT Office Visit [facility] Cardiology [address] [place] [address] Barrett Gu MD Cardiac resynchronization therapy pacemaker (PACKAGE WORKER-P) in place (Primary Dx); Coronary artery disease involving [place] coronary artery of [place] heart without angina pectoris; Mixed diabetic hyperlipidemia associated with type 2 diabetes mellitus (CMS/HCC) ([facility]); HFrEF (heart failure with reduced ejection fraction) ([facility]); Longstanding persistent atrial fibrillation ([facility]) 04/10/2025 Orders Only [facility] Card[facility] [address] [place] [address] Barrett Gu MD from Last 3 Months Surgical History Surgery Date Site/Laterality Comments [place] CORONARY ARTERY BYPASS 1 CORONARY VENOUS GRAFT [...] on file Legal Sex Male 11:44 PM ROOFING APPRENTICE Gender Identity Male 02/25/2021 9:12 AM CDT [...] Risk Assessment 01/24/2022 01/24/2021 eGFR 12/03/2024 12/03/2023, 08/11/2022, 05/12/2023, Additional history exists Influenza Vaccine (#1) 2025 Lipid Panel 10/31/2025 10/31/2024, 10/0 05/2024, 03/09/2024, Additional history exists Medical Devices Implanted Type Area Rolling Machine Operator Automatic Device Identifier Shelf Expiration Date Model / Serial / Lot Lisa Vascular Device Clsr Perclose Prostyle Sut-Mediatd Closure-Repai r Sys 04369-42 - S0 - [id number] Implanted:Qty : 1 on 05/12/2023 by Byron Horn MD at [facility] Vascular Closure Device Right: Femoral [employer] 01/22/2025 48127-60 / 0 / [id number] Procedures Procedure Name Priority Date/Time Associated Diagnosis Comments SCAN - LABS 04/09/2025 CARDIOLOGY DOCUMENT SCAN Routine 04/08/2025 5:14 PM CDT POCT LIPID PANEL Routine 10/31/2024 8:38 AM ROOFING APPRENTICE Coronary artery disease involving [place] coronary artery of [place] heart without angina pectoris BASIC METABOLIC PANEL Routine 12/03/2023 8:02 AM ROOFING APPRENTICE Hypertension associated with diabetes (HCC) Cardiomyopathy, unspecified type (HCC) HEMOGLOBIN A1C STAT 01/20/2021 6:51 AM CDT from Last 3 Months or Most Recently Relevant to Health Maintenance Results * SCAN - LABS (04/09/2025) Provider Scanning Final Result * Cardiology Document Scan (04/08/2025 5:14 PM CDT) Anatomical Region Laterality Modality Other Barrett Gu MD CV CARDIAC SERVICES PROCE DURES Final Result * POCT lipid panel (10/31/2024 8:38 AM ROOFING APPRENTICE) Cholesterol, POC 172 mg/dL HDL, POC 59 mg/dL Triglycerides, POC 123 mg/dL LDL Cholesterol POC 88 mg/dL Chol/HDL Ratio, POC 1.5 Non-HDL Cholesterol, POC 113 mg/dL Cholesterol Total, POC 172 mg/dL Capillary blood 10/31/2024 8 :38 AM ROOFING APPRENTICE Barrett Gu MD POINT OF CARE TEST ORDERA BLES Final Result * (ABNORMAL) Basic metabolic panel (12/03/2023 8:02 AM ROOFING APPRENTICE) Glucose 101(H) 65 - 99 mg/dL [facility] Comment: Fasting reference interval For someone without known diabetes, a glucose value between 100 and 125 mg/dL is consistent with prediabetes and should be confirmed with a follow-up test. BUN 16 7 - 25 mg/dL [facility] Creatinine 0.91 0.70 - 1.28 mg/dL [facility] eGFR 88 > OR = 60 mL/min/1.7 3m2 [facility] BUN/creat ratio SEE NOTE: 6 - 22 (calc) [facility] Comment: Not Reported: BUN and Creatinine are within reference range. Sodium 141 135 - 146 mmol/L [facility] Potassium, pl 4.5 3.5 - 5.3 mmol/L [facility] Chloride 106 98 - 110 mmol/L [facility] CO2 27 20 - 32 mmol/L [facility] Calcium 9.4 8.6 - 10.3 mg/dL [facility] Blood 12/03/2023 8:02 AM ROOFING APPRENTICE 12/03/2023 8:02 AM ROOFING APPRENTICE Narrative [facility] - 12/03/2023 6:33 PM ROOFING APPRENTICE FASTING:YES FASTING: YES Brandon Vega MD LAB BLOOD ORDERABLES Fin al Result Performing Organization Address City/[facility]/ZIP Co de Phone Number [facility] [address] [place] [address] * Hemoglobin A1c (01/20/2021 6:51 AM CDT) Hgb A1C 5.2 4.0 - 5.6 % [facility] Estimated Average Glucose 103 mg/dL [facility] Comment: The ADA recommends reporting an estimated Average Glucose (eAG) with all Hemoglobin A1c results using the equation derived from a study of 507 normal and diabetic adults. Minority populations were underrepresented and children were not included. (Diabetes Care 31:4958-6429, 2008). The eAG is not equivalent to a fasting glucose. Blood specimen (specimen) 01/20/2021 6:51 AM CDT 01/20/2021 6:51 AM CDT Jossue Marshall MD LAB BLOOD ORDERABLES Final Result Performing Organization Address City/[facility]/ZIP Co de Phone Number [facility] [address] Department [place] [address] from Last 3 Months or Most Recently Relevant to Health Maintenance Insurance MEDICARE [facility] [address] [place] [id number] MEDICARE [facility] Member Subscriber Plan / Payer (Ef fective 2020-) Name:Ketty Jimenez Relation to Subscriber:Self Name:Ketty Jimenez Payer ID:[id number] Group ID:[id number] Type:COMMERCIAL Address: [facility] [id number] [place] [address] MEDICARE [facility] Advance Directives For more information, please contact: [phone] Documents on File Type Date Recorded Patient Professor Criminal Justice Expl anation ADVANCE DIRECTIVE 05/13/2023 4:52 PM POWER OF FIRE CREW SPECIALIST-MEDICAL * Full Code (Latest Code Status on File) Date Activated Date Inactivated Comments 05/12/2023 3:58 PM 05/12/2023 10:20 PM * Full Code Date Activated Date Inactivated Comments 01/20/2021 1:00 PM 01/24/2021 5:02 PM * Full Code Date Activated Date Inactivated Comments 01/10/2021 12:47 PM 01/10/2021 8:57 PM Care Teams Print Production Associate Relationship Specialty Start Date End Date Chon Goode PA [address] [facility] [address] [place] [address] PCP - General Physician Ice Cream Machine Operator 10/31/24
--- OUTSIDE RECORDS SUMMARY | 2025-07-09 18:42 | XMS_ITS ---
Author Organization [facility] [place], [place] [address] Address [address] [place] [address] Care Team Providers Care [employer] Grader Name Role Phone Chon Goode Primary Care Provider Active Problems Problem Noted Date Diagnosed Date Cardiac resynchronization th erapy pacemaker (DISEASE MANAGEMENT NURSE-P) in place 05/10/2024 HFrEF (heart failure with reduced ejection fract ion) 01/20/2024 Atrial fibrillation 12/08/2023 Cardiomyopathy 04/22/2023 Medication side effects 10/02/2021 Aftercare following surgery of the circulatory s ystem, NEC 02/25/2021 Abnormal cardiovascular stress test 01/03/2021 Overview (01/03/2021): Added automatically from request for surgery [id number] LBBB (left bundle branch block) 12/31/2020 Premature atrial contractions 12/22/2019 Statin myopathy 12/22/2019 Mixed diabetic hyperlipidemi a associated with type 2 diabetes mellitus (CMS/HCC) 12/22/2019 Cervical myelopathy 11/02/2018 Spinal stenosis of lumbar re gion without neurogenic claudication 11/02/2018 Idiopathic peripheral neuropathy 07/29/2018 Lumbar spondylosis 07/29/2018 Coronary artery disease invo lving [place] coronary artery of [place] heart without angina pectoris 02/16/2018 Hypertension associated [...] vein coronary bypass graft with angina pectoris ([facility]) 01/14/2021 10/02/2021 Overview (01/14/2021): Added automatically from request for surgery [id number] Angina pectoris, unstable 01/03/2021 Overview (01/03/2021): Added automatically from request for surgery [id number] Dyslipidemia 02/16/2018 10/02/2021 Statin intolerance 02/16/2018 9 Abnormal blood chemistry level 05/28/2011 04/22/2023 Hypercholesterolemia 12/18/2008 021
[2025-07-11 06:08] LABS: Calprotectin, Fecal 121 ug/g (0-120)
[2025-07-11 14:08] LABS: Pancreatic Elastase, Fecal >800 (>200)
== END 2025-07-09 16:01 | disposition home or self-care (01) ==
LOC: ANHLAB 16:04
PROVIDERS: PCP Nurse Practitioner; Visit Provider Nurse Practitioner Family
DX: K52.9 Noninfective gastroenteritis and colitis, unspecified (principal)
CPT/HCPCS: 82653; 83993; 87045; 87046; 87427; 87493